=== PATIENT | female | born 1980 | race Caucasian/White ===

== ENCOUNTER 2016-11-30 18:53 | Emergency (ER) | payer MEDICAID ==
[~2016-11-30] VITALS: Ht 175.3 cm; Wt 72.0 kg
[~2016-11-30 18:53] MED LIST: PERC5TAB12 PO; ZOLO50TA PO
[2016-11-30 19:30] VITALS: BP 115/80; PULSE 81; RESP 20; TEMP 98.8; O2SAT 98
== END 2016-11-30 20:00 | disposition left against medical advice (07) ==
LOC: PHED 18:53
DX: R68.89 Other general symptoms and signs (principal)
CPT/HCPCS: 99281

== ENCOUNTER 2017-01-10 17:35 | Emergency (ER) | payer MEDICAID ==
[~2017-01-10] VITALS: Ht 175.3 cm; Wt 70.5 kg
[2017-01-10 17:37] VITALS: BP 126/68; PULSE 90; RESP 17; TEMP 97.7; O2SAT 96
[2017-01-10 18:18] LABS: BACTERIA, URINE RARE /hpf; BLOOD, URINE NEG (NEG); COMMENT (UR) CULT NOT INDICATED; CULTURE IF INDICATED CULT NOT INDICATED; GLUCOSE,URINE NEG (NEG); KETONE, URINE NEG (NEG); NITRITE,URINE NEG (NEG); SQUAMOUS EPITHELIAL CELL URINE 2 /hpf (0-5); URINE COLOR YELLOW (YELLW/STRAW)
[2017-01-10] MEDS ORDERED: LORA-392 PO (18:43)
[2017-01-10] MEDS ORDERED: SODIUM CHLOR 0.9% 1000 ML INJ 1,000 ML IV SCH (18:54)
--- NOTE | 2017-01-10 18:59 | PD ---
HPI Chief Complaint: Flank/Kidney Pain Time Seen by Provider: 18:50 Travel History International Travel<30 days: No Contact w/Intl Traveler<30days: No Traveled to known affect area: No History of Present Illness HPI This patient was examined in the presence of a female nurse. This is a 36-year- old female who presents for evaluation of right-sided abdominal pain. Symptoms started yesterday. She describes it as a sharp pain in the right lower and upper quadrants of her abdomen which is constant no obvious relieving factors. The lower abdominal pain seems to be worse than the upper abdominal pain. Denies any flank pain, nausea or vomiting, fevers or chills, vaginal bleeding or discharge, hematuria, dysuria. She has had kidney stones the past but this feels different. Denies any history of abdominal surgery. She has no other complaints. PFSH Past Medical History Hx Anticoagulant Therapy: No Anemia: Yes Anxiety: Yes Depression: Yes Cancer: No Cardiovascular Problems: No Chemotherapy: No Chest Pain: Yes Cerebrovascular Accident: No Cystic Fibrosis: No Diabetes: No Diminished Hearing: No Endocrine: Yes (gestational diabities) Gastrointestinal Disorders: Yes Genitourinary: Yes (polynephrocalcinosu, UTI, MEDULARY SPONGE, DISTAL RENAL TUBULAR ACIDOSIS) Headaches: Yes Hepatitis: No Hiatal Hernia: No Hypertension: No Immune Disorder: No Implanted Vascular Access Dvce: No Kidney Stones: Yes Musculoskeletal: No Neurologic: No Psychiatric: No Reproductive: No Respiratory: No Immunizations Current: Yes Migraines: Yes Renal Failure: Yes Shingles: Yes Thyroid Disease: No ?: Not LMP: 28th, but spotting : 6 Para: 4 Miscarriage: 2 : 0 Dilation and Curettage (D&C): Yes (X 1) Past Surgical History Abdominal Surgery: No AICD: No Body Medical Devices: NONE Cardiac Surgery: No Ear Surgery: No Eye Surgery: No Genitourinary Surgery: Yes (CYSTO-STENTS, LITHOTRIPSY, CYSTOSCOPY) Gynecologic Surgery: No Hysterectomy: No Joint Replacement: No Oral Surgery: No Pacemaker: No Thoracic Surgery: No Other Surgery: Yes (RENAL STENTS (HAVE BEEN REMOVED)) Social History Alcohol Use: No Tobacco Use: No Substance Use: No Allergies-Medications (Allergen,Severity, Reaction): Coded Allergies: Vancomycin (Verified Allergy, Severe, RASH, 01/10/17) Nonsteroidal Anti-Inflammatory Agts (Verified Adverse Reaction, Severe, RENAL PRECAUTIONS, 01/10/17) Reported Meds & Prescriptions Reported Meds & Active Scripts Active Acetaminophen Extra Strength (Acetaminophen) 500 Mg Tab 500 Mg PO Q6H PRN Reported Ativan (Lorazepam) 0.5 Mg Tab 0.5 Mg PO HS PRN Zoloft (Sertraline HCl) 50 Mg Tab 50 Mg PO HS Review of Systems Except as stated in HPI: all other systems reviewed are Neg Physical Exam Narrative GENERAL: Well-developed well-nourished female who appears uncomfortable on initial examination SKIN: Warm and dry. HEAD: Atraumatic. Normocephalic. EYES: Pupils equal and round. No scleral icterus. No injection or drainage. ENT: No nasal bleeding or discharge. Mucous membranes pink and moist. NECK: Trachea midline. No JVD. CARDIOVASCULAR: Regular rate and rhythm. No murmur appreciated. RESPIRATORY: No accessory muscle use. Clear to auscultation. Breath sounds equal bilaterally. GASTROINTESTINAL: Abdomen soft, tender to palpation in the right upper and lower quadrants without guarding. No CVA tenderness. MUSCULOSKELETAL: No obvious deformities. No edema. NEUROLOGICAL: Awake and alert. No obvious cranial nerve deficits. Motor grossly within normal limits. Normal speech. PSYCHIATRIC: Appropriate mood and affect; insight and judgment normal. Data Data Last Documented VS Vital Signs Date Time Temp Pulse Resp B/P Pulse Ox O2 Delivery O2 Flow Rate FiO2 01/10/17 22:57 18 98 Room Air 01/10/17 17:37 97.7 90 126/68 Orders Urinalysis - C+S If Indicated (01/10/17 17:57) Ed Urine Pregnancytest Poc (01/10/17 17:57) Complete Blood Count With Diff (01/10/17 18:54) Comprehensive Metabolic Panel (01/10/17 18:54) Lipase (01/10/17 18:54) Ct Abd/Pel W Iv Contrast(Rout) (01/10/17 18:54) Iv Access Insert/Monitor (01/10/17 18:54) Ecg Monitoring (01/10/17 18:54) Oximetry (01/10/17 18:54) Morphine Inj (Morphine Inj) (01/10/17 19:00) Ondansetron Inj (Zofran Inj) (01/10/17 19:00) Sodium Chlor 0.9% 1000 Ml Inj (Ns 1000 M (01/10/17 18:54) Sodium Chloride 0.9% Flush (Ns Flush) (01/10/17 19:00) Iohexol 350 Inj (Omnipaque 350 Inj) (01/10/17 22:01) Morphine Inj (Morphine Inj) (01/10/17 22:15) Us Pelvis Comp W Dop Transvag (01/10/17 19:16) Labs Laboratory Tests Test 01/10/17 01/10/17 18:00 19:20 Urine Color YELLOW Urine Turbidity CLEAR Urine pH 6.0 Urine Specific [place] 1.014 Urine Protein NEG mg/dL Urine Glucose (UA) NEG mg/dL Urine Ketones NEG mg/dL Urine Occult Blood NEG Urine Nitrite NEG Urine Bilirubin NEG Urine Urobilinogen LESS THAN 2.0 MG/DL Urine Leukocyte Esterase TRACE Urine RBC LESS THAN 1 /hpf Urine WBC 4 /hpf Urine Squamous Epithelial 2 /hpf Cells Urine Bacteria RARE /hpf Microscopic Urinalysis Comment CULT NOT INDICATED White Blood Count 7.2 TH/MM3 Red Blood Count 4.90 MIL/MM3 Hemoglobin 14.3 GM/DL Hematocrit 40.5 % Mean Corpuscular Volume 82.7 FL Mean Corpuscular Hemoglobin 29.1 PG Mean Corpuscular Hemoglobin 35.2 % Concent Red Cell Distribution Width 12.8 % Platelet Count 233 TH/MM3 Mean Platelet Volume 8.2 FL Neutrophils (%) (Auto) 66.7 % Lymphocytes (%) (Auto) 23.0 % Monocytes (%) (Auto) 8.2 % Eosinophils (%) (Auto) 1.3 % Basophils (%) (Auto) 0.8 % Neutrophils # (Auto) 4.8 TH/MM3 Lymphocytes # (Auto) 1.7 TH/MM3 Monocytes # (Auto) 0.6 TH/MM3 Eosinophils # (Auto) 0.1 TH/MM3 Basophils # (Auto) 0.1 TH/MM3 CBC Comment DIFF FINAL Differential Comment Sodium Level 140 MEQ/L Potassium Level 3.7 MEQ/L Chloride Level 104 MEQ/L Carbon Dioxide Level 27.5 MEQ/L Anion Gap 9 MEQ/L Blood Urea Nitrogen 11 MG/DL Creatinine 0.66 MG/DL Estimat Glomerular Filtration 103 ML/MIN Rate Random Glucose 87 MG/DL Calcium Level 9.0 MG/DL Total Bilirubin 0.3 MG/DL Aspartate Amino Transf 14 U/L (AST/SGOT) Alanine Aminotransferase 15 U/L (ALT/SGPT) Alkaline Phosphatase 95 U/L Total Protein 8.0 GM/DL Albumin 3.8 GM/DL Lipase 162 U/L MDM Medical Decision Making Medical Screen Exam Complete: Yes Emergency Medical Condition: Yes Medical Record Reviewed: Yes Interpretation(s) Urinalysis trace leukocytes Urine negative Differential Diagnosis Appendicitis, biliary pathology, ovarian torsion, tubo-ovarian abscess, colitis , renal colic Narrative Course 36-year-old female presents for evaluation of right-sided abdominal pain since yesterday. Examination reveals pain in the right lower and upper quadrants of the abdomen, lower worse than upper, without guarding. Plan is for CT of the abdomen, labwork, urinalysis, as well as pelvic ultrasound to rule out torsion. The patient will be given IV fluids, morphine, Zofran. 2100: At the end of shift The patient was signed out to Dr. Eli pending imaging studies. Scripts Acetaminophen (Acetaminophen Extra Strength)500 Mg Uac382 Mg PO Q6H PRN (PAIN SCALE 1 TO 4) #20 TAB Ref 0 Prov:Shannan Eli DO 01/11/17 Yoni Agrawal Jan 10, 2017 18:59
[2017-01-10] MEDS ORDERED: MORPHINE SULFATE 4 MG/ML INJ IV PUSH ONE ×2 (19:00→22:15)
[2017-01-10] MEDS ORDERED: ONDANSETRON HCL 4 MG/2 ML VIAL IVP ONE (19:00)
[2017-01-10] MEDS: SODIUM CHLORIDE 0.9% FLUSH 10 ML FLUSH IV FLUSH PRN ×2 (19:50→22:16)
[2017-01-10 20:25] LABS: AUTOMATED NEUTROPHIL # 4.8 TH/MM3 (1.8-7.7); BASOPHIL # 0.1 TH/MM3 (0-0.2); BASOPHIL % 0.8 % (0.0-2.0); EOSINOPHIL # 0.1 TH/MM3 (0-0.4); EOSINOPHIL % 1.3 % (0.0-4.0); HEMATOCRIT 40.5 % (35.0-46.0); HEMO FLAGS DIFF FINAL; LYMPHOCYTE # 1.7 TH/MM3 (1.0-4.8); MEAN CELL VOLUME 82.7 FL (80.0-100.0); MEAN CORPUSCULAR HEMOGLOBIN 29.1 PG (27.0-34.0); MEAN CORPUSCULAR HGB CONC 35.2 % (32.0-36.0); MONO % 8.2 % (0.0-8.0); NEUT % 66.7 % (16.0-70.0); PLATELET COUNT 233 TH/MM3 (150-450); RED CELL DISTRIBUTION WIDTH 12.8 % (11.6-17.2); WHITE BLOOD COUNT 7.2 TH/MM3 (4.0-11.0)
[2017-01-10 20:49] LABS: ANION GAP 9 MEQ/L (5-15); AST (GOT) 14 U/L (15-37); BICARBONATE 27.5 MEQ/L (21.0-32.0); BLOOD UREA NITROGEN 11 MG/DL (7-18); CHLORIDE 104 MEQ/L (98-107); GLOMERULAR FILTRATION RATE 103 ML/MIN (>89); POTASSIUM 3.7 MEQ/L (3.5-5.1); SODIUM (NA) 140 MEQ/L (136-145)
[2017-01-10 20:52] LABS: ALKALINE PHOSPHATASE 95 U/L (45-117); ALT (GPT) 15 U/L (10-53); TOTAL BILIRUBIN ADULT 0.3 MG/DL (0.2-1.0)
--- NOTE | 2017-01-10 21:42 | PD ---
Physical Exam Narrative I, Dr. Eli, have reviewed the advance practice practitioner's documentation and am in agreement, met with the patient face to face, made the diagnosis, and the medical decision making was done by me. *My assessment and Findings: Appendicitis vs. cholecystitis vs. nephrolithiasis vs. colitis 36yo F with PMH of nephrolithiasis c/o right sided abdominal pain since yesterday. States it started in RUQ and radiates down to RLQ and now the entire right side hurts. Denies any fever, vaginal discharge. Labs reviewed, no leukocytosis. CMP unremarkable. Lipase normal. UA showed trace leukocyte. WBC is only 4. Culture not indicated. TVUS showed thickened endometrial stripe. Small amount of free fluid in cul de sac. Small bilateral follicular cysts. CT a/p showed extensive medullary nephrocalcinosis in both kidneys without evidence of obstructive uropathy. Pt reevaluated at bedside and abdominal pain has resolved after morphine. Pt tolerating PO after zofran and NS IVF. Return precautions given. Data Data Last Documented VS Vital Signs Date Time Temp Pulse Resp B/P Pulse Ox O2 Delivery O2 Flow Rate FiO2 01/10/17 22:57 18 98 Room Air 01/10/17 17:37 97.7 90 126/68 Orders Urinalysis - C+S If Indicated (01/10/17 17:57) Ed Urine Pregnancytest Poc (01/10/17 17:57) Complete Blood Count With Diff (01/10/17 18:54) Comprehensive Metabolic Panel (01/10/17 18:54) Lipase (01/10/17 18:54) Ct Abd/Pel W Iv Contrast(Rout) (01/10/17 18:54) Iv Access Insert/Monitor (01/10/17 18:54) Ecg Monitoring (01/10/17 18:54) Oximetry (01/10/17 18:54) Morphine Inj (Morphine Inj) (01/10/17 19:00) Ondansetron Inj (Zofran Inj) (01/10/17 19:00) Sodium Chlor 0.9% 1000 Ml Inj (Ns 1000 M (01/10/17 18:54) Sodium Chloride 0.9% Flush (Ns Flush) (01/10/17 19:00) Iohexol 350 Inj (Omnipaque 350 Inj) (01/10/17 22:01) Morphine Inj (Morphine Inj) (01/10/17 22:15) Us Pelvis Comp W Dop Transvag (01/10/17 19:16) Labs Laboratory Tests Test 01/10/17 01/10/17 18:00 19:20 Urine Color YELLOW Urine Turbidity CLEAR Urine pH 6.0 Urine Specific [place] 1.014 Urine Protein NEG mg/dL Urine Glucose (UA) NEG mg/dL Urine Ketones NEG mg/dL Urine Occult Blood NEG Urine Nitrite NEG Urine Bilirubin NEG Urine Urobilinogen LESS THAN 2.0 MG/DL Urine Leukocyte Esterase TRACE Urine RBC LESS THAN 1 /hpf Urine WBC 4 /hpf Urine Squamous Epithelial 2 /hpf Cells Urine Bacteria RARE /hpf Microscopic Urinalysis Comment CULT NOT INDICATED White Blood Count 7.2 TH/MM3 Red Blood Count 4.90 MIL/MM3 Hemoglobin 14.3 GM/DL Hematocrit 40.5 % Mean Corpuscular Volume 82.7 FL Mean Corpuscular Hemoglobin 29.1 PG Mean Corpuscular Hemoglobin 35.2 % Concent Red Cell Distribution Width 12.8 % Platelet Count 233 TH/MM3 Mean Platelet Volume 8.2 FL Neutrophils (%) (Auto) 66.7 % Lymphocytes (%) (Auto) 23.0 % Monocytes (%) (Auto) 8.2 % Eosinophils (%) (Auto) 1.3 % Basophils (%) (Auto) 0.8 % Neutrophils # (Auto) 4.8 TH/MM3 Lymphocytes # (Auto) 1.7 TH/MM3 Monocytes # (Auto) 0.6 TH/MM3 Eosinophils # (Auto) 0.1 TH/MM3 Basophils # (Auto) 0.1 TH/MM3 CBC Comment DIFF FINAL Differential Comment Sodium Level 140 MEQ/L Potassium Level 3.7 MEQ/L Chloride Level 104 MEQ/L Carbon Dioxide Level 27.5 MEQ/L Anion Gap 9 MEQ/L Blood Urea Nitrogen 11 MG/DL Creatinine 0.66 MG/DL Estimat Glomerular Filtration 103 ML/MIN Rate Random Glucose 87 MG/DL Calcium Level 9.0 MG/DL Total Bilirubin 0.3 MG/DL Aspartate Amino Transf 14 U/L (AST/SGOT) Alanine Aminotransferase 15 U/L (ALT/SGPT) Alkaline Phosphatase 95 U/L Total Protein 8.0 GM/DL Albumin 3.8 GM/DL Lipase 162 U/L [facility] Supervised Visit with KATHLEEN: Yes Interpretation(s) Laboratory Tests Test 01/10/17 01/10/17 18:00 19:20 Urine Color YELLOW (YELLW/STRAW) Urine Turbidity CLEAR (CLEAR) Urine pH 6.0 (5.0-8.5) Urine Specific [place] 1.014 (1.002-1.035) Urine Protein NEG mg/dL (NEG-TRACE) Urine Glucose (UA) NEG mg/dL (NEG) Urine Ketones NEG mg/dL (NEG) Urine Occult Blood NEG (NEG) Urine Nitrite NEG (NEG) Urine Bilirubin NEG (NEG) Urine Urobilinogen LESS THAN 2.0 MG/DL (LESS THAN 2.0) Urine Leukocyte Esterase TRACE (NEG) Urine RBC LESS THAN 1 /hpf (0-3) Urine WBC 4 /hpf (0-5) Urine Squamous Epithelial 2 /hpf (0-5) Cells Urine Bacteria RARE /hpf (NONE) Microscopic Urinalysis Comment CULT NOT INDICATED White Blood Count 7.2 TH/MM3 (4.0-11.0) Red Blood Count 4.90 MIL/MM3 (4.00-5.30) Hemoglobin 14.3 GM/DL (11.6-15.3) Hematocrit 40.5 % (35.0-46.0) Mean Corpuscular Volume 82.7 FL (80.0-100.0) Mean Corpuscular Hemoglobin 29.1 PG (27.0-34.0) Mean Corpuscular Hemoglobin 35.2 % Concent (32.0-36.0) Red Cell Distribution Width 12.8 % (11.6-17.2) Platelet Count 233 TH/MM3 (150-450) Mean Platelet Volume 8.2 FL (7.0-11.0) Neutrophils (%) (Auto) 66.7 % (16.0-70.0) Lymphocytes (%) (Auto) 23.0 % (9.0-44.0) Monocytes (%) (Auto) 8.2 % (0.0-8.0) Eosinophils (%) (Auto) 1.3 % (0.0-4.0) Basophils (%) (Auto) 0.8 % (0.0-2.0) Neutrophils # (Auto) 4.8 TH/MM3 (1.8-7.7) Lymphocytes # (Auto) 1.7 TH/MM3 (1.0-4.8) Monocytes # (Auto) 0.6 TH/MM3 (0-0.9) Eosinophils # (Auto) 0.1 TH/MM3 (0-0.4) Basophils # (Auto) 0.1 TH/MM3 (0-0.2) CBC Comment DIFF FINAL Differential Comment Sodium Level 140 MEQ/L (136-145) Potassium Level 3.7 MEQ/L (3.5-5.1) Chloride Level 104 MEQ/L (98-107) Carbon Dioxide Level 27.5 MEQ/L (21.0-32.0) Anion Gap 9 MEQ/L (5-15) Blood Urea Nitrogen 11 MG/DL (7-18) Creatinine 0.66 MG/DL (0.50-1.00) Estimat Glomerular Filtration 103 ML/MIN Rate (>89) Random Glucose 87 MG/DL (74-106) Calcium Level 9.0 MG/DL (8.5-10.1) Total Bilirubin 0.3 MG/DL (0.2-1.0) Aspartate Amino Transf 14 U/L (15-37) (AST/SGOT) Alanine Aminotransferase 15 U/L (10-53) (ALT/SGPT) Alkaline Phosphatase 95 U/L (45-117) Total Protein 8.0 GM/DL (6.4-8.2) Albumin 3.8 GM/DL (3.4-5.0) Lipase 162 U/L (73-393) Last Impressions Abdomen/Pelvis/Transvag US 01/10/17 1916 Signed Impressions: Service Date/Time: December 22:06 - CONCLUSION: 1. Thickened endometrial stripe. 2. Small amount of free fluid in the cul-de-sac. 3. Small bilateral follicular cysts. Mahendra Pratt Jr., MD Abdomen/Pelvis CT 01/10/17 2381 Signed Impressions: Service Date/Time: December 21:53 - CONCLUSION: 1. Extensive medullary nephrocalcinosis in both kidneys without evidence for obstructive uropathy. Mike Joe MD Diagnosis Primary Impression: Abdominal pain Qualified Code: R10.11 - Right upper quadrant abdominal pain Patient Instructions: General Instructions Departure Forms: Tests/Procedures Additional Instruction: Please follow up with your PMD in 3-7 days. Return to the ED if symptoms worsen. Med/Other Pt SpecificInfo: Prescription(s) given Scripts Acetaminophen (Acetaminophen Extra Strength)500 Mg Qlz500 Mg PO Q6H PRN (PAIN SCALE 1 TO 4) #20 TAB Ref 0 Prov:Shannan Eli DO 01/11/17 Disposition: 01 DISCHARGE HOME Condition: Stable Shannan Eli DO Jan 10, 2017 21:42
[2017-01-10] MEDS ORDERED: IOHEXOL 350 MG/ML 10 ML VIAL (for RAD DIAG) IV ONE (22:01)
--- NOTE | 2017-01-10 22:10 | RADRPT ---
EXAM DATE/TIME: 01/10/2017 21:53 [facility] COMPARISON: No previous studies available for comparison. INDICATIONS : Right flank abdomen pain along with fever for two days. IV CONTRAST: 92 cc Omnipaque 350 (iohexol) IV ORAL CONTRAST: No oral contrast ingested. RADIATION DOSE: 6.93 CTDIvol (mGy) MEDICAL HISTORY : Renal Disease SURGICAL HISTORY : Lithotropsy ENCOUNTER: Initial ACUITY: 2 days PAIN SCALE: 5/10 LOCATION: Right flank TECHNIQUE: Volumetric scanning of the abdomen and pelvis was performed. Using automated exposure control and ad justment of the mA and/or kV according to patient size, radiation dose was kept as low as reasonably achievable to obtain optimal diagnostic quality images. FINDINGS: There is linear scarring or atelectasis at the lung base. No significant abnormality in the liver, sp augustin, adrenals or pancreas. There is medullary nephrocalcinosis in both kidneys with tiny bilateral r enal cysts. No hydronephrosis. No calcified gallstones or biliary ductal dilatation. No bowel obstruction. No free air free fluid. No acute bony abnormalities. CONCLUSION: 1. Extensive medullary nephrocalcinosis in both kidneys without evidence for obstructive uropathy. Mike Joe MD on January 10, 2017 at 22:05 Board Certified Radiologist. This report was verified electronically.
[2017-01-10 22:57] VITALS: RESP 18; O2SAT 98
--- NOTE | 2017-01-10 23:18 | RADRPT ---
EXAM DATE/TIME: 01/10/2017 22:06 [facility] COMPARISON: No previous studies available for comparison. INDICATIONS : Pelvic pain. MEDICAL HISTORY : . Renal calculi. Renal failure. Migraines. Miscarriage x 2. Medulary sponge kidney. Depres armida. Anxiety. Gestational diabetes. Anemia. Shingles. SURGICAL HISTORY : Lithotripsy. Renal stent placement and removal. Dilation and curettage. ENCOUNTER: Initial ACUITY: 2 days PAIN SCORE: 5/10 LOCATION: Bilateral pelvis MEASUREMENTS: UTERUS: 9.6 x 6.5 x 5.6 cm ENDOMETRIAL STRIPE: 18 mm RIGHT OVARY: 2.8 x 2.3 x 1.8 cm LEFT OVARY: 2.5 x 1.8 x 1.3 cm FINDINGS: UTERUS: The myometrium is homogeneous without focal mass. The endometrium is thickened and somewhat heterogen eous with a small amount of fluid in the endocervical canal. Several tiny endometrial cysts are obser ashlyn. The largest measures 6 mm. RIGHT OVARY: Ovary contains no mass or significant cystic lesion. LEFT OVARY: Ovary contains no mass or significant cystic lesion. MISCELLANEOUS: A small amount of free fluid in the cul-de-sac. CONCLUSION: 1. Thickened endometrial stripe. 2. Small amount of free fluid in the cul-de-sac. 3. Small bilateral follicular cysts. Mahendra Pratt Jr., MD on January 10, 2017 at 23:11 Board Certified Radiologist. This report was verified electronically.
[2017-01-11] MEDS ORDERED: ACET500T36 PO (00:06)
== END 2017-01-11 00:35 | disposition home or self-care (01) ==
LOC: NEPB 17:35 → NEPA 01-11 00:35
DX: R10.11 Right upper quadrant pain (principal)
CPT/HCPCS: 74177; 76830; 76856; 80053; 81001; 83690; 84703; 85025; 93975; 96374; 96375; 96376; 99284; J2270; J2405; J7030; Q9967

== ENCOUNTER 2017-02-27 22:44 | Emergency (ER) | payer SELFPAY ==
[~2017-02-27 22:44] MED LIST changes: +ACET500T36 PO; +LORA-392 PO; -PERC5TAB12 PO
[2017-02-27 22:45] VITALS: BP 130/90; PULSE 75; RESP 18; TEMP 99; O2SAT 100
[2017-02-27] MEDS ORDERED: HYDR-3516 PO (23:10)
--- NOTE | 2017-02-27 23:18 | PD ---
HPI Chief Complaint: Flank/Kidney Pain Time Seen by Provider: 23:01 Travel History International Travel<30 days: No Contact w/Intl Traveler<30days: No Traveled to known affect area: No History of Present Illness HPI 36-year-old female complains of right flank pain, nausea vomiting, fever chills. Patient has history of chronic recurrent UTI and with dysuria for the past 4 years. Patient states the pain is sharp pain localized to right flank area. Patient denies any pain radiation. Patient has been to the emergency room multiple times in the past for the same problem. UA has been negative for growth or contamination. CT scan abdomen pelvis done recently shows calcinosis of the kidney. No obstructive uropathy. PFSH Past Medical History Hx Anticoagulant Therapy: No Anemia: Yes Anxiety: Yes Depression: Yes Cancer: No Cardiovascular Problems: No Chemotherapy: No Chest Pain: Yes Cerebrovascular Accident: No Cystic Fibrosis: No Diabetes: No Diminished Hearing: No Endocrine: Yes (gestational diabities) Gastrointestinal Disorders: Yes Genitourinary: Yes (polynephrocalcinosu, UTI, MEDULARY SPONGE, DISTAL RENAL TUBULAR ACIDOSIS) Headaches: Yes Hepatitis: No Hiatal Hernia: No Hypertension: No Immune Disorder: No Implanted Vascular Access Dvce: No Kidney Stones: Yes Musculoskeletal: No Neurologic: No Psychiatric: No Reproductive: No Respiratory: No Immunizations Current: Yes Migraines: Yes Renal Failure: Yes Shingles: Yes Thyroid Disease: No ?: Not : 6 Para: 4 Miscarriage: 2 : 0 Dilation and Curettage (D&C): Yes (X 1) Past Surgical History Abdominal Surgery: No AICD: No Body Medical Devices: NONE Cardiac Surgery: No Ear Surgery: No Eye Surgery: No Genitourinary Surgery: Yes (CYSTO-STENTS, LITHOTRIPSY, CYSTOSCOPY) Gynecologic Surgery: No Hysterectomy: No Joint Replacement: No Oral Surgery: No Pacemaker: No Thoracic Surgery: No Other Surgery: Yes (RENAL STENTS (HAVE BEEN REMOVED)) Social History Alcohol Use: No Tobacco Use: No Substance Use: No Allergies-Medications (Allergen,Severity, Reaction): Coded Allergies: Vancomycin (Verified Allergy, Severe, RASH, 02/27/17) Nonsteroidal Anti-Inflammatory Agts (Verified Adverse Reaction, Severe, RENAL PRECAUTIONS, 02/27/17) Reported Meds & Prescriptions Reported Meds & Active Scripts Active Reported Hydrocodone-Acetaminophen 5-325 mg Tab 1 Tab PO Q6H PRN Ativan (Lorazepam) 0.5 Mg Tab 0.5 Mg PO HS PRN Review of Systems General / Constitutional: No: Fever Eyes: No: Visual changes HENT: No: Headaches Cardiovascular: No: Chest Pain or Discomfort Respiratory: No: Shortness of Breath Gastrointestinal: No: Abdominal Pain Genitourinary: Positive: Dysuria Musculoskeletal: No: Pain Skin: No Rash Neurologic: No: Weakness Psychiatric: No: Depression Endocrine: No: Polydipsia Hematologic/Lymphatic: No: Easy Bruising Physical Exam Narrative GENERAL: Well-nourished, well-developed patient. SKIN: Focused skin assessment warm/dry. HEAD: Normocephalic. EYES: No scleral icterus. No injection or drainage. NECK: Supple, trachea midline. No JVD or lymphadenopathy. CARDIOVASCULAR: Regular rate and rhythm without murmurs, gallops, or rubs. RESPIRATORY: Breath sounds equal bilaterally. No accessory muscle use. GASTROINTESTINAL: Abdomen soft, non-tender, nondistended. MUSCULOSKELETAL: No cyanosis, or edema. BACK: Patient has mild tenderness on palpation right flank area, without obvious deformity. No CVA tenderness. Neurologic exam normal. Data Data Last Documented VS Vital Signs Date Time Temp Pulse Resp B/P Pulse Ox O2 Delivery O2 Flow Rate FiO2 02/27/17 22:45 99.0 75 18 130/90 100 Room Air Orders Complete Blood Count With Diff (02/27/17 23:12) Comprehensive Metabolic Panel (02/27/17 23:12) Urinalysis - C+S If Indicated (02/27/17 23:12) Iv Access Insert/Monitor (02/27/17 23:12) Ecg Monitoring (02/27/17 23:12) Oximetry (02/27/17 23:12) Labs Laboratory Tests Test 02/27/17 23:30 White Blood Count 5.1 TH/MM3 Red Blood Count 4.64 MIL/MM3 Hemoglobin 12.8 GM/DL Hematocrit 38.6 % Mean Corpuscular Volume 83.1 FL Mean Corpuscular Hemoglobin 27.7 PG Mean Corpuscular Hemoglobin 33.3 % Concent Red Cell Distribution Width 14.6 % Platelet Count 182 TH/MM3 Mean Platelet Volume 8.3 FL Neutrophils (%) (Auto) 48.2 % Lymphocytes (%) (Auto) 38.4 % Monocytes (%) (Auto) 9.7 % Eosinophils (%) (Auto) 2.3 % Basophils (%) (Auto) 1.4 % Neutrophils # (Auto) 2.5 TH/MM3 Lymphocytes # (Auto) 2.0 TH/MM3 Monocytes # (Auto) 0.5 TH/MM3 Eosinophils # (Auto) 0.1 TH/MM3 Basophils # (Auto) 0.1 TH/MM3 CBC Comment DIFF FINAL Differential Comment Urine Color YELLOW Urine Turbidity CLEAR Urine pH 6.0 Urine Specific [place] 1.014 Urine Protein NEG mg/dL Urine Glucose (UA) NEG mg/dL Urine Ketones NEG mg/dL Urine Occult Blood LARGE Urine Nitrite NEG Urine Bilirubin NEG Urine Urobilinogen LESS THAN 2.0 MG/DL Urine Leukocyte Esterase NEG Urine RBC /hpf Urine WBC 4 /hpf Urine Mucus FEW /lpf Microscopic Urinalysis Comment CULT NOT INDICATED Sodium Level 139 MEQ/L Potassium Level 3.6 MEQ/L Chloride Level 102 MEQ/L Carbon Dioxide Level 26.4 MEQ/L Anion Gap 11 MEQ/L Blood Urea Nitrogen 16 MG/DL Creatinine 0.85 MG/DL Estimat Glomerular Filtration 77 ML/MIN Rate Random Glucose 83 MG/DL Calcium Level 9.1 MG/DL Total Bilirubin 0.2 MG/DL Aspartate Amino Transf 18 U/L (AST/SGOT) Alanine Aminotransferase 17 U/L (ALT/SGPT) Alkaline Phosphatase 87 U/L Total Protein 7.8 GM/DL Albumin 3.9 GM/DL [facility] Medical Decision Making Medical Screen Exam Complete: Yes Emergency Medical Condition: Yes Interpretation(s) 23:51 PM. CBC within normal limits. UA positive for RBC, 4 WBC . Culture not indicated. CMP within normal limit. Differential Diagnosis Differential diagnosis including musculoskeletal, pyelonephritis, nephrolithiasis, UTI. Narrative Course 36-year-old female with recurrent dysuria and right flank pain. Diagnosis Primary Impression: Hematuria Additional Impression: Nephrolithiasis Patient Instructions: General Instructions Additional Instructions: Take medication as directed. Follow with personal physician and urologist. Med/Other Pt SpecificInfo: Prescription(s) given Scripts Cyclobenzaprine (Flexeril)10 Mg Tab10 Mg PO TID #60 TAB Ref 0 Prov:Yuriy Bui MD 02/28/17 Disposition: 01 DISCHARGE HOME Condition: Stable Yuriy Bui MD February 27, 2017 23:18
[2017-02-27 23:44] LABS: BLOOD, URINE LARGE (NEG); COMMENT (UR) CULT NOT INDICATED; CULTURE IF INDICATED CULT NOT INDICATED; GLUCOSE,URINE NEG (NEG); KETONE, URINE NEG (NEG); MUCUS URINE FEW /lpf (OCC); NITRITE,URINE NEG (NEG); URINE COLOR YELLOW (YELLW/STRAW)
[2017-02-27 23:50] LABS: AUTOMATED NEUTROPHIL # 2.5 TH/MM3 (1.8-7.7); BASOPHIL # 0.1 TH/MM3 (0-0.2); BASOPHIL % 1.4 % (0.0-2.0); EOSINOPHIL # 0.1 TH/MM3 (0-0.4); EOSINOPHIL % 2.3 % (0.0-4.0); HEMATOCRIT 38.6 % (35.0-46.0); HEMO FLAGS DIFF FINAL; LYMPH % 38.4 % (9.0-44.0); MEAN CELL VOLUME 83.1 FL (80.0-100.0); MEAN CORPUSCULAR HEMOGLOBIN 27.7 PG (27.0-34.0); MEAN CORPUSCULAR HGB CONC 33.3 % (32.0-36.0); MONO % 9.7 % (0.0-8.0); NEUT % 48.2 % (16.0-70.0); PLATELET COUNT 182 TH/MM3 (150-450); RED BLOOD COUNT 4.64 MIL/MM3 (4.00-5.30); RED CELL DISTRIBUTION WIDTH 14.6 % (11.6-17.2); WHITE BLOOD COUNT 5.1 TH/MM3 (4.0-11.0)
[2017-02-28] LABS: ANION GAP 11 MEQ/L (5-15); AST (GOT) 18 U/L (15-37); BICARBONATE 26.4 MEQ/L (21.0-32.0); BLOOD UREA NITROGEN 16 MG/DL (7-18); CHLORIDE 102 MEQ/L (98-107); GLOMERULAR FILTRATION RATE 77 ML/MIN (>89); POTASSIUM 3.6 MEQ/L (3.5-5.1); SODIUM (NA) 139 MEQ/L (136-145)
[2017-02-28 00:03] LABS: ALKALINE PHOSPHATASE 87 U/L (45-117); ALT (GPT) 17 U/L (10-53); TOTAL BILIRUBIN ADULT 0.2 MG/DL (0.2-1.0)
[2017-02-28] MEDS ORDERED: CYCL1TAB29 PO (00:56)
== END 2017-02-28 01:10 | disposition home or self-care (01) ==
LOC: NEPE 22:44
DX: R31.9 Hematuria, unspecified (principal); N20.0 Calculus of kidney; Z87.442 Personal history of urinary calculi
CPT/HCPCS: 80053; 81001; 85025; 99284

== ENCOUNTER 2017-04-07 19:06 | Emergency (ER) | payer MEDICAID ==
[~2017-04-07] VITALS: Ht 175.3 cm; Wt 72.0 kg
[~2017-04-07 19:06] MED LIST changes: -ACET500T36 PO; +CYCL1TAB29 PO; +HYDR-3516 PO; -ZOLO50TA PO
[2017-04-07 19:08] VITALS: BP 128/80; PULSE 83; RESP 20; TEMP 98.9; O2SAT 98
[2017-04-07] MEDS ORDERED: SODIUM CHLOR 0.9% 1000 ML INJ 1,000 ML IV ONE (19:29)
[2017-04-07] MEDS ORDERED: SODIUM CHLORIDE 0.9% FLUSH 10 ML FLUSH IVF PRN (19:30)
[2017-04-07] MEDS ORDERED: KETOROLAC TROMETHAMINE 30 MG/ML (IVP) VIAL IVP ONE (19:30)
--- NOTE | 2017-04-07 19:41 | PD ---
HPI Chief Complaint: Flank/Kidney Pain Time Seen by Provider: 19:25 Travel History International Travel<30 days: No Contact w/Intl Traveler<30days: No Traveled to known affect area: No History of Present Illness HPI 35-year-old female with history of chronic kidney disease presents to the emergency room for evaluation of left-sided flank pain for the past 3 days. Patient got a primary care physician 3 days ago but they could not get her in. She was trying to "pass the stones" on her own but the pain became unbearable. Pain is constant with intermittent spasming. Localized to left flank without radiation. Patient has been taking Tylenol without significant relief in symptoms. She has associated nausea, vomiting, dysuria, urgency, and frequency. Denies fever, chills. Patient states she has had chronic kidney for the past 4 years but they never show up on CT. 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 She sees a urologist in [place] and has an appointment with him 5 days. PFSH Past Medical History Hx Anticoagulant Therapy: No Anemia: Yes Anxiety: Yes Depression: Yes Cancer: No Cardiovascular Problems: No Chemotherapy: No Chest Pain: Yes Cerebrovascular Accident: No Cystic Fibrosis: No Diabetes: No Diminished Hearing: No Endocrine: Yes (gestational diabities) Gastrointestinal Disorders: Yes Genitourinary: Yes (polynephrocalcinosu, UTI, MEDULARY SPONGE, DISTAL RENAL TUBULAR ACIDOSIS) Headaches: Yes Hepatitis: No Hiatal Hernia: No Hypertension: No Immune Disorder: No Implanted Vascular Access Dvce: No Kidney Stones: Yes Musculoskeletal: No Neurologic: No Psychiatric: No Reproductive: No Respiratory: No Immunizations Current: Yes Migraines: Yes Renal Failure: Yes Shingles: Yes Thyroid Disease: No LMP: 03/30/17 : 6 Para: 4 Miscarriage: 2 : 0 Dilation and Curettage (D&C): Yes (X 1) Past Surgical History Abdominal Surgery: No AICD: No Body Medical Devices: NONE Cardiac Surgery: No Ear Surgery: No Eye Surgery: No Genitourinary Surgery: Yes (CYSTO-STENTS, LITHOTRIPSY, CYSTOSCOPY) Gynecologic Surgery: No Hysterectomy: No Joint Replacement: No Oral Surgery: No Pacemaker: No Thoracic Surgery: No Other Surgery: Yes (RENAL STENTS (HAVE BEEN REMOVED)) Social History Alcohol Use: No Tobacco Use: No Substance Use: No Allergies-Medications (Allergen,Severity, Reaction): Coded Allergies: Vancomycin (Verified Allergy, Severe, RASH, 04/07/17) Nonsteroidal Anti-Inflammatory Agts (Verified Adverse Reaction, Severe, RENAL PRECAUTIONS, 04/07/17) Reported Meds & Prescriptions Reported Meds & Active Scripts Active Lortab (Hydrocodone-Acetaminophen) 5-325 Mg Tab 1 Tab PO Q6H PRN Flexeril (Cyclobenzaprine HCl) 10 Mg Tab 10 Mg PO TID Reported Hydrocodone-Acetaminophen 5-325 mg Tab 1 Tab PO Q6H PRN Ativan (Lorazepam) 0.5 Mg Tab 0.5 Mg PO HS PRN Review of Systems Except as stated in HPI: all other systems reviewed are Neg Physical Exam Narrative GENERAL: Well-nourished, well-developed female in no acute distress. Afebrile. Ambulatory. Writhing in pain. SKIN: Focused skin assessment warm/dry. HEAD: Normocephalic. EYES: No scleral icterus. No injection or drainage. NECK: Supple, trachea midline. No JVD or lymphadenopathy. CARDIOVASCULAR: Regular rate and rhythm without murmurs, gallops, or rubs. RESPIRATORY: Breath sounds equal bilaterally. No accessory muscle use. BACK: Left-sided CVA tenderness. No rash. No point tenderness on palpation of the spine. Data Data Last Documented VS Vital Signs Date Time Temp Pulse Resp B/P Pulse Ox O2 Delivery O2 Flow Rate FiO2 04/07/17 21:03 75 18 121/74 98 Room Air 04/07/17 19:08 98.9 Orders Complete Blood Count With Diff (04/07/17 19:29) Basic Metabolic Panel (Bmp) (04/07/17 19:29) Urinalysis - C+S If Indicated (04/07/17 19:29) Iv Access Insert/Monitor (04/07/17 19:29) Ketorolac Inj (Toradol Inj) (04/07/17 19:30) Sodium Chloride 0.9% Flush (Ns Flush) (04/07/17 19:30) Sodium Chlor 0.9% 1000 Ml Inj (Ns 1000 M (04/07/17 19:29) Morphine Inj (Morphine Inj) (04/07/17 20:15) Us Kidney/Renal/Bladder (04/07/17 ) Labs Laboratory Tests Test 04/07/17 19:30 White Blood Count 6.6 TH/MM3 Red Blood Count 4.91 MIL/MM3 Hemoglobin 14.2 GM/DL Hematocrit 40.5 % Mean Corpuscular Volume 82.5 FL Mean Corpuscular Hemoglobin 29.0 PG Mean Corpuscular Hemoglobin 35.1 % Concent Red Cell Distribution Width 13.8 % Platelet Count 217 TH/MM3 Mean Platelet Volume 8.3 FL Neutrophils (%) (Auto) 62.2 % Lymphocytes (%) (Auto) 28.1 % Monocytes (%) (Auto) 8.1 % Eosinophils (%) (Auto) 0.8 % Basophils (%) (Auto) 0.8 % Neutrophils # (Auto) 4.1 TH/MM3 Lymphocytes # (Auto) 1.8 TH/MM3 Monocytes # (Auto) 0.5 TH/MM3 Eosinophils # (Auto) 0.1 TH/MM3 Basophils # (Auto) 0.1 TH/MM3 CBC Comment DIFF FINAL Differential Comment Urine Color YELLOW Urine Turbidity CLEAR Urine pH 6.5 Urine Specific [place] 1.016 Urine Protein NEG mg/dL Urine Glucose (UA) NEG mg/dL Urine Ketones NEG mg/dL Urine Occult Blood NEG Urine Nitrite NEG Urine Bilirubin NEG Urine Urobilinogen LESS THAN 2.0 MG/DL Urine Leukocyte Esterase NEG Urine RBC 1 /hpf Urine WBC 7 /hpf Urine Squamous Epithelial 1 /hpf Cells Urine Mucus FEW /lpf Microscopic Urinalysis Comment CULT NOT INDICATED Sodium Level 137 MEQ/L Potassium Level 3.6 MEQ/L Chloride Level 104 MEQ/L Carbon Dioxide Level 24.3 MEQ/L Anion Gap 9 MEQ/L Blood Urea Nitrogen 11 MG/DL Creatinine 0.67 MG/DL Estimat Glomerular Filtration 101 ML/MIN Rate Random Glucose 115 MG/DL Calcium Level 9.4 MG/DL [facility] Medical Decision Making Medical Screen Exam Complete: Yes Emergency Medical Condition: Yes Medical Record Reviewed: Yes Differential Diagnosis Medullary sponge kidney, flank pain, nephrolithiasis, nephrocalcinosis, pyelonephritis Narrative Course 36-year-old female with a history of medullary sponge kidney and nephrocalcinosis presents to the emergency room for evaluation of left flank pain for the past 3 days. Patient states she has chronic right flank pain but it is unusual for have left flank pain. She tried to do with the pain at home but it became unbearable. She has only taken Tylenol. Physical exam reveals mild tenderness to palpation of the left flank. Patient is writhing in pain and pacing the room. Vital signs stable. UA shows no evidence of stone or infection. CBC and BMP are unremarkable. Patient was given 30 mg IV Toradol and 4 mg IV morphine. Renal ultrasound shows mild left hydronephrosis and chronic bilateral medullary nephrocalcinosis. No evidence of infection or indication for admission this time. Patient will be discharged with prescription for Lortab and told to follow-up with her urologist. She has an appointment with him in 5 days. Told to return for worsening symptoms. She understands and agrees to plan. Diagnosis Primary Impression: Medullary sponge kidney Additional Impression: Hydronephrosis Qualified Code: N13.30 - Hydronephrosis, unspecified hydronephrosis type Referrals: Urologist Patient Instructions: General Instructions, Hydronephrosis (ED) Additional Instructions: Rest and drink plenty of fluids. Take Lortab as directed, as needed for pain. Do not drink alcohol or drive while taking this medication. Follow-up with your urologist as planned. Return to the emergency room for worsening symptoms. Med/Other Pt SpecificInfo: Prescription(s) given Scripts Hydrocodone-Acetaminophen (Lortab)5-325 Mg Tab1 Tab PO Q6H PRN (PAIN) #12 TAB Ref 0 Prov:Mohan Bailon MD 04/07/17 Disposition: 01 DISCHARGE HOME Condition: Stable Tahira García Apr 07, 2017 19:41
[2017-04-07 19:57] LABS: AUTOMATED NEUTROPHIL # 4.1 TH/MM3 (1.8-7.7); BASOPHIL # 0.1 TH/MM3 (0-0.2); BASOPHIL % 0.8 % (0.0-2.0); EOSINOPHIL # 0.1 TH/MM3 (0-0.4); EOSINOPHIL % 0.8 % (0.0-4.0); HEMATOCRIT 40.5 % (35.0-46.0); HEMO FLAGS DIFF FINAL; LYMPH % 28.1 % (9.0-44.0); LYMPHOCYTE # 1.8 TH/MM3 (1.0-4.8); MEAN CELL VOLUME 82.5 FL (80.0-100.0); MEAN CORPUSCULAR HGB CONC 35.1 % (32.0-36.0); MONO % 8.1 % (0.0-8.0); NEUT % 62.2 % (16.0-70.0); PLATELET COUNT 217 TH/MM3 (150-450); RED BLOOD COUNT 4.91 MIL/MM3 (4.00-5.30); RED CELL DISTRIBUTION WIDTH 13.8 % (11.6-17.2); WHITE BLOOD COUNT 6.6 TH/MM3 (4.0-11.0)
[2017-04-07 20:01] LABS: BLOOD, URINE NEG (NEG); COMMENT (UR) CULT NOT INDICATED; CULTURE IF INDICATED CULT NOT INDICATED; GLUCOSE,URINE NEG (NEG); KETONE, URINE NEG (NEG); MUCUS URINE FEW /lpf (OCC); NITRITE,URINE NEG (NEG); PH, URINE 6.5 (5.0-8.5); SQUAMOUS EPITHELIAL CELL URINE 1 /hpf (0-5); URINE COLOR YELLOW (YELLW/STRAW)
[2017-04-07 20:14] LABS: BICARBONATE 24.3 MEQ/L (21.0-32.0); POTASSIUM 3.6 MEQ/L (3.5-5.1)
[2017-04-07] MEDS ORDERED: MORPHINE SULFATE 4 MG/ML INJ IV PUSH ONE (20:15)
[2017-04-07 21:03] VITALS: BP 121/74; PULSE 75; RESP 18; O2SAT 98
--- NOTE | 2017-04-07 21:09 | RADRPT ---
EXAM DATE/TIME: 04/07/2017 20:19 [facility] COMPARISON: CT ABDOMEN & PELVIS W CONTRAST, January 10, 2017, 21:53. US KIDNEY/RENAL/BLADDER, July 05, 2015, 18:44. INDICATIONS : Flank pain. MEDICAL HISTORY : Renal calculi. Medullary sponge kidneys. Renal tubular acidosis. Shingles. SURGICAL HISTORY : D&C. Cystoscopy. Renal stents. ENCOUNTER: Initial ACUITY: 4-6 days PAIN SCORE: 10/10 LOCATION: Bilateral flank MEASUREMENTS: RIGHT KIDNEY: 12.1 x 4.0 x 5.4 cm LEFT KIDNEY: 13.3 x 5.1 x 5.4 cm FINDINGS: RIGHT KIDNEY: Renal cortex is normal in thickness and echotexture. No hydronephrosis or mass. There abnormal echo genic medullary pyramids. LEFT KIDNEY: Renal cortex is normal in thickness and echotexture. There abnormal echogenic medullary pyramids. T here is a mild distention of the left collecting system. BLADDER: Within normal limits given the degree of distension. CONCLUSION: 1. Mild left hydronephrosis. 2. Bilateral medullary nephrocalcinosis. Willard Dietrich MD on April 07, 2017 at 20:59 Board Certified Radiologist. This report was verified electronically.
[2017-04-07] MEDS ORDERED: HYDR-3533 PO (21:33)
[2017-04-07 21:50] VITALS: BP 128/78
[2017-04-08] MEDS ORDERED: ZOFR4TAB3 SL ×3 (16:27→17:53)
[2017-04-08] MEDS ORDERED: HYDR-3533 PO (17:37)
[2017-04-08] MEDS ORDERED: TAMS5CAP PO (17:53)
[2017-04-08] MEDS ORDERED: PERC5TAB12 PO (17:53)
[2017-04-08] MEDS ORDERED: OXYB5TAB10 PO (17:53)
== END 2017-04-07 21:51 | disposition home or self-care (01) ==
LOC: NEPC 19:06
DX: Q61.5 Medullary cystic kidney (principal); N13.30 Unspecified hydronephrosis; D64.9 Anemia, unspecified; F32.9 Major depressive disorder, single episode, unspecified; F41.9 Anxiety disorder, unspecified; Z79.899 Other long term (current) drug therapy
CPT/HCPCS: 76775; 80048; 81001; 85025; 96361; 96374; 96375; 99285; J1885; J2270; J7030

== ENCOUNTER 2017-04-08 15:56 | Emergency (ER) | payer MEDICAID ==
[~2017-04-08] VITALS: Ht 175.3 cm; Wt 72.0 kg
[~2017-04-08 15:56] MED LIST changes: +HYDR-3533 PO
[2017-04-08 15:58] VITALS: BP 145/78; PULSE 96; RESP 18; TEMP 98.4; O2SAT 98
[2017-04-08] MEDS ORDERED: ZOFR4TAB3 SL ×3 (16:27→17:53)
[2017-04-08] MEDS ORDERED: ONDANSETRON HCL 4 MG/2 ML VIAL IVP ONE (17:00)
[2017-04-08] MEDS ORDERED: SODIUM CHLORIDE 0.9% FLUSH 10 ML FLUSH IV FLUSH PRN (17:00)
[2017-04-08] MEDS ORDERED: HYDROmorphone HCL PF 1 MG/ML VIAL IVS ONE (17:00)
[2017-04-08] MEDS ORDERED: HYDR-3533 PO (17:37)
--- NOTE | 2017-04-08 17:38 | PD ---
HPI Chief Complaint: Complaint Time Seen by Provider: 16:38 Travel History International Travel<30 days: No Contact w/Intl Traveler<30days: No Traveled to known affect area: No History of Present Illness HPI 36-year-old female complains of left flank pain and right flank pain with hematuria and the passage of stones. She has a history of kidney stones. She reports decreased appetite. She reports vomiting. She's had no fever. She has a history of medullary sponge kidney with nephrocalcinosis. She also has a history of distal tibial acidosis. Pain has been more or less constant. She was seen and diagnosed here with left hydroureteronephrosis just yesterday. PFSH Past Medical History Hx Anticoagulant Therapy: No Anemia: Yes Anxiety: Yes Depression: Yes Cancer: No Cardiovascular Problems: No Chemotherapy: No Chest Pain: Yes Cerebrovascular Accident: No Cystic Fibrosis: No Diabetes: No Diminished Hearing: No Endocrine: Yes (gestational diabities) Gastrointestinal Disorders: Yes Genitourinary: Yes (polynephrocalcinosu, UTI, MEDULARY SPONGE, DISTAL RENAL TUBULAR ACIDOSIS) Headaches: Yes Hepatitis: No Hiatal Hernia: No Hypertension: No Immune Disorder: No Implanted Vascular Access Dvce: No Kidney Stones: Yes Musculoskeletal: No Neurologic: No Psychiatric: No Reproductive: No Respiratory: No Immunizations Current: Yes Migraines: Yes Renal Failure: Yes Shingles: Yes Thyroid Disease: No ?: Not : 6 Para: 4 Miscarriage: 2 : 0 Dilation and Curettage (D&C): Yes (X 1) Past Surgical History Abdominal Surgery: No AICD: No Body Medical Devices: NONE Cardiac Surgery: No Ear Surgery: No Eye Surgery: No Genitourinary Surgery: Yes (CYSTO-STENTS, LITHOTRIPSY, CYSTOSCOPY) Gynecologic Surgery: No Hysterectomy: No Joint Replacement: No Oral Surgery: No Pacemaker: No Thoracic Surgery: No Other Surgery: Yes (RENAL STENTS (HAVE BEEN REMOVED)) Social History Alcohol Use: No Tobacco Use: No Substance Use: No Allergies-Medications (Allergen,Severity, Reaction): Coded Allergies: Vancomycin (Verified Allergy, Severe, RASH, 04/08/17) Nonsteroidal Anti-Inflammatory Agts (Verified Adverse Reaction, Severe, RENAL PRECAUTIONS, 04/08/17) Reported Meds & Prescriptions Reported Meds & Active Scripts Active Zofran Odt (Ondansetron Odt) 4 Mg Tab 4 Mg SL Q6HR PRN Lortab (Hydrocodone-Acetaminophen) 5-325 Mg Tab 1 Tab PO Q6H PRN Flexeril (Cyclobenzaprine HCl) 10 Mg Tab 10 Mg PO TID Reported Hydrocodone-Acetaminophen 5-325 mg Tab 1 Tab PO Q6H PRN Ativan (Lorazepam) 0.5 Mg Tab 0.5 Mg PO HS PRN Review of Systems Except as stated in HPI: all other systems reviewed are Neg Physical Exam Narrative GENERAL: 36-year-old female pleasant well-nourished well-developed moderate distress SKIN: Focused skin assessment warm/dry. HEAD: Atraumatic. Normocephalic. EYES: Pupils equal and round. No scleral icterus. No injection or drainage. ENT: No nasal bleeding or discharge. Mucous membranes pink and moist. NECK: Trachea midline. No JVD. CARDIOVASCULAR: Regular rate and rhythm. No murmur appreciated. RESPIRATORY: No accessory muscle use. Clear to auscultation. Breath sounds equal bilaterally. GASTROINTESTINAL: Abdomen soft, non-tender, nondistended. Hepatic and splenic margins not palpable. MUSCULOSKELETAL: No obvious deformities. No clubbing. No cyanosis. Tenderness to percussion in the flanks bilaterally. NEUROLOGICAL: Awake and alert. No obvious cranial nerve deficits. Motor grossly within normal limits. Normal speech. PSYCHIATRIC: Appropriate mood and affect; insight and judgment normal. Data Data Last Documented VS Vital Signs Date Time Temp Pulse Resp B/P Pulse Ox O2 Delivery O2 Flow Rate FiO2 04/08/17 15:58 98.4 96 18 145/78 98 Vital signs reviewed Orders Basic Metabolic Panel (Bmp) (04/08/17 16:46) Complete Blood Count With Diff (04/08/17 16:46) Urinalysis - C+S If Indicated (04/08/17 16:46) Iv Access Insert/Monitor (04/08/17 16:46) Ecg Monitoring (04/08/17 16:46) Oximetry (04/08/17 16:46) Ondansetron Inj (Zofran Inj) (04/08/17 17:00) Sodium Chloride 0.9% Flush (Ns Flush) (04/08/17 17:00) Hydromorphone Pf Inj (Dilaudid Pf Inj) (04/08/17 17:00) Ed Urine Pregnancytest Poc (04/08/17 16:46) [facility] Medical Decision Making Medical Screen Exam Complete: Yes Emergency Medical Condition: Yes Medical Record Reviewed: Yes Differential Diagnosis Constipation, Gastritis, Acute Cholecystitis, Biliary Colic, Pancreatitis, CUMMINGS , Hepatitis, Bowel Obstruction, Cystitis, Mesenteric Ischemia, AAA, Appendicitis , Renal Stone/Hydronephrosis, GERD, perforated viscous Narrative Course Pain has been controlled. Patient received a liter of fluids. We'll send home with antiemetics and pain control. Of note the patient has had her blood drawn 7 times in the last 10 months and has had a normal white count every time as well as normal renal indices. She has never had a urinary tract infection either. In this scenario we can reasonably safely defer repeat blood work. Diagnosis Primary Impression: Flank pain Referrals: Urologist 2 days Additional Instructions: You have a choice when it comes to health care, and we are glad that you chose [facility]. Hopefully, we have met your expectations on today's visit. You are welcome to return to [facility] at any time, as we are committed to meeting the health care needs of our community. Med/Other Pt SpecificInfo: Prescription(s) given Scripts Ondansetron Odt (Zofran Odt)4 Mg Tab4 Mg SL Q8HR PRN (Nausea/Vomiting) #10 TAB Ref 0 Prov:Nathaniel Beltran MD 04/08/17 Tamsulosin (Flomax)0.4 Mg Cap0.4 Mg PO HS #10 CAP Ref 0 Prov:Nathaniel Beltran MD 04/08/17 Oxycodone-Acetaminophen (Percocet)5-325 mg Tab2 Tab PO Q6H PRN (PAIN SCALE 6 TO 10) #20 TAB Ref 0 Prov:Nathaniel Beltran MD 04/08/17 Oxybutynin (Ditropan)5 Mg Tab5 Mg PO Q8HR #30 TAB Ref 0 Prov:Nathaniel Beltran MD 04/08/17 Ondansetron Odt (Zofran Odt)4 Mg Tab4 Mg SL Q6HR PRN (Nausea/Vomiting) #10 TAB Ref 0 Prov:Nathaniel Beltran MD 04/08/17 Hydrocodone-Acetaminophen (Lortab)5-325 Mg Tab1 Tab PO Q6H PRN (PAIN) #15 TAB Ref 0 Prov:Nathaniel Beltran MD 04/08/17 Disposition: 01 DISCHARGE HOME Condition: Stable Nathaniel Beltran MD Apr 08, 2017 17:37
[2017-04-08] MEDS ORDERED: PERC5TAB12 PO (17:53)
[2017-04-08] MEDS ORDERED: OXYB5TAB10 PO (17:53)
[2017-04-08] MEDS ORDERED: TAMS5CAP PO (17:53)
[2017-04-08] MEDS ORDERED: SODIUM CHLOR 0.9% 1000 ML INJ 1,000 ML IV ONE (18:00)
== END 2017-04-08 18:27 | disposition home or self-care (01) ==
LOC: NEPE 15:56
DX: R10.32 Left lower quadrant pain (principal); R10.31 Right lower quadrant pain; Z87.442 Personal history of urinary calculi
CPT/HCPCS: 96374; 96375; 99284; J1170; J2405; J7030

== ENCOUNTER 2017-06-07 23:56 | Emergency (ER) | payer MEDICAID ==
[~2017-06-07] VITALS: Ht 175.3 cm; Wt 75.0 kg
[~2017-06-07 23:56] MED LIST changes: +OXYB5TAB10 PO; +PERC5TAB12 PO; +TAMS5CAP PO; +ZOFR4TAB3 SL
[2017-06-07 23:59] VITALS: BP 132/85; PULSE 82; RESP 16; TEMP 99.5; O2SAT 98
[2017-06-08] MEDS ORDERED: ZOLO50TA PO (00:19)
[2017-06-08] MEDS ORDERED: SODIUM CHLOR 0.9% 1000 ML INJ 1,000 ML IV ONE ×2 (00:37→01:30)
[2017-06-08] MEDS ORDERED: SODIUM CHLORIDE 0.9% FLUSH 10 ML FLUSH IVF PRN (00:45)
[2017-06-08] MEDS ORDERED: ONDANSETRON HCL 4 MG/2 ML VIAL IVP ONE (00:45)
[2017-06-08] MEDS ORDERED: HYDROmorphone HCL PF 1 MG/ML VIAL IVS ONE (00:45)
--- NOTE | 2017-06-08 00:53 | PD ---
HPI . "I'm peeing gravel" Chief Complaint: Flank/Kidney Pain Time Seen by Provider: 00:37 Travel History International Travel<30 days: No Contact w/Intl Traveler<30days: No Traveled to known affect area: No History of Present Illness HPI This patient presents with the chief complaint of flank pain and urinating gravel. She has a history of medullary sponge kidney associated with nephrolithiasis. She states that her current episode started about 24 hours ago. She is having in both flanks, left worse than right. She denies fever. No exacerbating or relieving factors. Current pain level 10/10. PFSH Past Medical History Hx Anticoagulant Therapy: No Anemia: Yes Anxiety: Yes Depression: Yes Cancer: No Cardiovascular Problems: No Chemotherapy: No Chest Pain: Yes Cerebrovascular Accident: No Cystic Fibrosis: No Diabetes: No Diminished Hearing: No Endocrine: Yes (gestational diabities) Gastrointestinal Disorders: Yes Genitourinary: Yes (polynephrocalcinosu, UTI, MEDULARY SPONGE, DISTAL RENAL TUBULAR ACIDOSIS) Headaches: Yes Hepatitis: No Hiatal Hernia: No Hypertension: No Immune Disorder: No Implanted Vascular Access Dvce: No Kidney Stones: Yes Musculoskeletal: No Neurologic: No Psychiatric: No Reproductive: No Respiratory: No Immunizations Current: Yes Migraines: Yes Renal Failure: Yes Shingles: Yes Thyroid Disease: No Tetanus Vaccination: < 5 Years ?: Not LMP: 05/14/17 : 6 Para: 4 Miscarriage: 2 : 0 Dilation and Curettage (D&C): Yes (X 1) Past Surgical History Abdominal Surgery: No AICD: No Body Medical Devices: NONE Cardiac Surgery: No Ear Surgery: No Eye Surgery: No Genitourinary Surgery: Yes (CYSTO-STENTS, LITHOTRIPSY, CYSTOSCOPY) Gynecologic Surgery: No Hysterectomy: No Joint Replacement: No Oral Surgery: No Pacemaker: No Thoracic Surgery: No Other Surgery: Yes (RENAL STENTS (HAVE BEEN REMOVED)) Social History Alcohol Use: No Tobacco Use: No Substance Use: No Allergies-Medications (Allergen,Severity, Reaction): Coded Allergies: vancomycin (Verified Allergy, Severe, RASH, 06/08/17) diclofenac (Verified Adverse Reaction, Severe, RENAL PRECAUTIONS, 06/08/17) etodolac (Verified Adverse Reaction, Severe, RENAL PRECAUTIONS, 06/08/17) flurbiprofen (Verified Adverse Reaction, Severe, RENAL PRECAUTIONS, ) ibuprofen (Verified Adverse Reaction, Severe, RENAL PRECAUTIONS, 06/08/17) indomethacin (Verified Adverse Reaction, Severe, RENAL PRECAUTIONS, ) ketoprofen (Verified Adverse Reaction, Severe, RENAL PRECAUTIONS, 06/08/17) ketorolac (Verified Adverse Reaction, Severe, RENAL PRECAUTIONS, 06/08/17) naproxen (Verified Adverse Reaction, Severe, RENAL PRECAUTIONS, 06/08/17) oxaprozin (Verified Adverse Reaction, Severe, RENAL PRECAUTIONS, 06/08/17) Reported Meds & Prescriptions Reported Meds & Active Scripts Active Phenergan (Promethazine HCl) 25 Mg Tablet 25 Mg PO Q6H PRN Percocet (Oxycodone-Acetaminophen) 5-325 mg Tab 1 Tab PO Q4H PRN Flomax (Tamsulosin HCl) 0.4 Mg Cap 0.4 Mg PO HS Ditropan (Oxybutynin Chloride) 5 Mg Tab 5 Mg PO Q8HR Reported Zoloft (Sertraline HCl) 50 Mg Tab 50 Mg PO DAILY Ativan (Lorazepam) 0.5 Mg Tab 0.5 Mg PO HS PRN Review of Systems Except as stated in HPI: all other systems reviewed are Neg General / Constitutional: No: Fever, Chills Genitourinary: Positive: Flank Pain Physical Exam Narrative GENERAL: A found the patient up pacing in the room. SKIN: Warm and dry. HEAD: Atraumatic. Normocephalic. EYES: Pupils equal and round. ENT: No nasal bleeding or discharge. Mucous membranes pink and moist. NECK: Trachea midline. CARDIOVASCULAR: Regular rate and rhythm. RESPIRATORY: No accessory muscle use. GASTROINTESTINAL: Abdomen soft, non-tender, nondistended. Bilateral CVA tenderness. Left greater than right. MUSCULOSKELETAL: No obvious deformities. No edema. NEUROLOGICAL: Awake and alert. No obvious cranial nerve deficits. Motor grossly within normal limits. Normal speech. PSYCHIATRIC: Appropriate mood and affect; insight and judgment normal. Data Data Last Documented VS Vital Signs Date Time Temp Pulse Resp B/P Pulse Ox O2 Delivery O2 Flow Rate FiO2 06/08/17 01:15 16 06/07/17 23:59 99.5 82 132/85 98 Orders Urinalysis - C+S If Indicated (06/08/17 00:37) Iv Access Insert/Monitor (06/08/17 00:37) Sodium Chlor 0.9% 1000 Ml Inj (Ns 1000 M (06/08/17 00:37) Ondansetron Inj (Zofran Inj) (06/08/17 00:45) Hydromorphone Pf Inj (Dilaudid Pf Inj) (06/08/17 00:45) Ed Urine Pregnancytest Poc (06/08/17 00:37) Sodium Chloride 0.9% Flush (Ns Flush) (06/08/17 00:45) Sodium Chlor 0.9% 1000 Ml Inj (Ns 1000 M (06/08/17 01:30) Hydromorphone Pf Inj (Dilaudid Pf Inj) (06/08/17 01:30) Labs Laboratory Tests Test 06/08/17 00:50 Urine Color LIGHT-YELLOW Urine Turbidity CLEAR Urine pH 5.5 Urine Specific [place] 1.014 Urine Protein NEG mg/dL Urine Glucose (UA) NEG mg/dL Urine Ketones NEG mg/dL Urine Occult Blood NEG Urine Nitrite NEG Urine Bilirubin NEG Urine Urobilinogen LESS THAN 2.0 MG/DL Urine Leukocyte Esterase SMALL Urine RBC 1 /hpf Urine WBC 5 /hpf Urine Squamous Epithelial <1 /hpf Cells Urine Mucus FEW /lpf Microscopic Urinalysis Comment CULT NOT INDICATED MDM Medical Decision Making Medical Screen Exam Complete: Yes Emergency Medical Condition: Yes Medical Record Reviewed: Yes (this patient has had multiple previous CTs for kidney stone.) Differential Diagnosis Differential diagnosis of flank pain includes but is not limited to kidney stone , pyelonephritis, musculoskeletal pain, PE Narrative Course This patient presents with a history of medullary sponge kidney and nephrolithiasis. Her symptoms tonight are exactly the same as previous episodes. Therefore, radiographic evaluation will not be done tonight. She will be treated symptomatically with IV fluids and IV analgesics. Laboratory Tests Test 06/08/17 00:50 Urine Color LIGHT-YELLOW Urine Turbidity CLEAR Urine pH 5.5 Urine Specific [place] 1.014 Urine Protein NEG mg/dL Urine Glucose (UA) NEG mg/dL Urine Ketones NEG mg/dL Urine Occult Blood NEG Urine Nitrite NEG Urine Bilirubin NEG Urine Urobilinogen LESS THAN 2.0 MG/DL Urine Leukocyte Esterase SMALL Urine RBC 1 /hpf Urine WBC 5 /hpf Urine Squamous Epithelial <1 /hpf Cells Urine Mucus FEW /lpf Microscopic Urinalysis Comment CULT NOT INDICATED Her pain is improved but not yet completely gone. Diagnosis Primary Impression: Flank pain Additional Impression: Medullary sponge kidney Patient Instructions: Narcotic given in the ED Med/Other Pt SpecificInfo: Prescription(s) given Scripts Promethazine (Phenergan)25 Mg [id number] Mg PO Q6H PRN (NAUSEA OR VOMITING) #12 TAB Ref 0 Prov:Randee Ontiveros MD 06/08/17 Oxycodone-Acetaminophen (Percocet)5-325 mg Tab1 Tab PO Q4H PRN (PAIN) #12 TAB Ref 0 Prov:Randee Ontiveros MD 06/08/17 Tamsulosin (Flomax)0.4 Mg Cap0.4 Mg PO HS #10 CAP Ref 0 Prov:Randee Ontiveros MD 06/08/17 Disposition: 01 DISCHARGE HOME Condition: Stable Randee Ontiveros MD Jun 08, 2017 00:53
[2017-06-08 01:09] LABS: BLOOD, URINE NEG (NEG); COMMENT (UR) CULT NOT INDICATED; CULTURE IF INDICATED CULT NOT INDICATED; GLUCOSE,URINE NEG (NEG); KETONE, URINE NEG (NEG); MUCUS URINE FEW /lpf (OCC); NITRITE,URINE NEG (NEG); PH, URINE 5.5 (5.0-8.5); SQUAMOUS EPITHELIAL CELL URINE <1 /hpf (0-5); URINE COLOR LIGHT-YELLOW (YELLW/STRAW)
[2017-06-08] MEDS ORDERED: HYDROmorphone HCL PF 1 MG/ML VIAL IV PUSH ONE (01:30)
[2017-06-08] MEDS ORDERED: PERC5TAB12 PO (02:05)
[2017-06-08] MEDS ORDERED: PROM25TA10 PO (02:05)
[2017-06-08] MEDS ORDERED: TAMS5CAP PO (02:05)
[2017-06-08 02:47] VITALS: BP 114/63; PULSE 66; RESP 16; O2SAT 98
[2017-06-09] MEDS ORDERED: PERC5TAB12 PO (20:01)
== END 2017-06-08 03:04 | disposition home or self-care (01) ==
LOC: NEPC 23:56
DX: Q61.5 Medullary cystic kidney (principal); R10.32 Left lower quadrant pain; R10.31 Right lower quadrant pain; Z87.442 Personal history of urinary calculi
CPT/HCPCS: 81001; 84703; 96361; 96374; 96375; 99284; J1170; J2405; J7030

== ENCOUNTER 2017-06-09 15:44 | Emergency (ER) | payer MEDICAID ==
[~2017-06-09 15:44] MED LIST changes: -CYCL1TAB29 PO; -HYDR-3516 PO; -HYDR-3533 PO; +PROM25TA10 PO; -ZOFR4TAB3 SL; +ZOLO50TA PO
[2017-06-09 15:46] VITALS: BP 126/92; PULSE 104; RESP 20; TEMP 97.9; O2SAT 99
--- NOTE | 2017-06-09 16:21 | PD ---
HPI Chief Complaint: Complaint Time Seen by Provider: 16:18 Travel History International Travel<30 days: No Contact w/Intl Traveler<30days: No Traveled to known affect area: No History of Present Illness HPI 37 YO F presents to the ED for evaluation of 3 day history of right sided flank and abdominal pain. Patient has a history of medullary sponge kidney with chronic nephrocalcinosis. She states that she's been passing stones all weekend. She presents today due to worsening pain, nausea, hematuria. She denies fevers. She did call her travel professional who referred her to the emergency room. PFSH Past Medical History Hx Anticoagulant Therapy: No Anemia: Yes Anxiety: Yes Depression: Yes Cancer: No Cardiovascular Problems: No Chemotherapy: No Chest Pain: Yes Cerebrovascular Accident: No Cystic Fibrosis: No Diabetes: No Diminished Hearing: No Endocrine: Yes (gestational diabities) Gastrointestinal Disorders: Yes Genitourinary: Yes (polynephrocalcinosu, UTI, MEDULARY SPONGE, DISTAL RENAL TUBULAR ACIDOSIS) Headaches: Yes Hepatitis: No Hiatal Hernia: No Hypertension: No Immune Disorder: No Implanted Vascular Access Dvce: No Kidney Stones: Yes Musculoskeletal: No Neurologic: No Psychiatric: No Reproductive: No Respiratory: No Immunizations Current: Yes Migraines: Yes Renal Failure: Yes Shingles: Yes Thyroid Disease: No ?: Not : 6 Para: 4 Miscarriage: 2 : 0 Dilation and Curettage (D&C): Yes (X 1) Past Surgical History Abdominal Surgery: No AICD: No Body Medical Devices: NONE Cardiac Surgery: No Ear Surgery: No Eye Surgery: No Genitourinary Surgery: Yes (CYSTO-STENTS, LITHOTRIPSY, CYSTOSCOPY) Gynecologic Surgery: No Hysterectomy: No Joint Replacement: No Oral Surgery: No Pacemaker: No Thoracic Surgery: No Other Surgery: Yes (RENAL STENTS (HAVE BEEN REMOVED)) Social History Alcohol Use: No Tobacco Use: No Substance Use: No Allergies-Medications (Allergen,Severity, Reaction): Coded Allergies: vancomycin (Verified Allergy, Severe, RASH, 06/08/17) diclofenac (Verified Adverse Reaction, Severe, RENAL PRECAUTIONS, 06/08/17) etodolac (Verified Adverse Reaction, Severe, RENAL PRECAUTIONS, 06/08/17) flurbiprofen (Verified Adverse Reaction, Severe, RENAL PRECAUTIONS, ) ibuprofen (Verified Adverse Reaction, Severe, RENAL PRECAUTIONS, 06/08/17) indomethacin (Verified Adverse Reaction, Severe, RENAL PRECAUTIONS, ) ketoprofen (Verified Adverse Reaction, Severe, RENAL PRECAUTIONS, 06/08/17) ketorolac (Verified Adverse Reaction, Severe, RENAL PRECAUTIONS, 06/08/17) naproxen (Verified Adverse Reaction, Severe, RENAL PRECAUTIONS, 06/08/17) oxaprozin (Verified Adverse Reaction, Severe, RENAL PRECAUTIONS, 06/08/17) Reported Meds & Prescriptions Reported Meds & Active Scripts Active Percocet (Oxycodone-Acetaminophen) 5-325 mg Tab 1 Tab PO Q4H PRN Phenergan (Promethazine HCl) 25 Mg Tablet 25 Mg PO Q6H PRN Flomax (Tamsulosin HCl) 0.4 Mg Cap 0.4 Mg PO HS Ditropan (Oxybutynin Chloride) 5 Mg Tab 5 Mg PO Q8HR Reported Zoloft (Sertraline HCl) 50 Mg Tab 50 Mg PO DAILY Ativan (Lorazepam) 0.5 Mg Tab 0.5 Mg PO HS PRN Review of Systems Except as stated in HPI: all other systems reviewed are Neg Physical Exam Narrative GENERAL: Well-nourished, well-developed anxious white female, pacing the room. SKIN: Focused skin assessment warm/dry. HEAD: Normocephalic. EYES: No scleral icterus. No injection or drainage. NECK: Supple, trachea midline. No JVD or lymphadenopathy. CARDIOVASCULAR: Regular rate and rhythm without murmurs, gallops, or rubs. RESPIRATORY: Breath sounds clear and equal bilaterally. No accessory muscle use. GASTROINTESTINAL: Abdomen soft, non-tender, nondistended. ++ Right-sided flank pain MUSCULOSKELETAL: No cyanosis, or edema. BACK: Nontender without obvious deformity. ++ Right-sided CVA tenderness. Data Data Last Documented VS Vital Signs Date Time Temp Pulse Resp B/P (MAP) Pulse Ox O2 Delivery O2 Flow Rate FiO2 06/09/17 20:02 63 113/65 (81) 99 06/09/17 15:46 97.9 20 Orders Orders Complete Blood Count With Diff (06/09/17 16:19) Comprehensive Metabolic Panel (06/09/17 16:19) Urinalysis - C+S If Indicated (06/09/17 16:19) Ct Abd/Pel W/O Iv Contrast (06/09/17 16:19) Iv Access Insert/Monitor (06/09/17 16:19) Ondansetron Inj (Zofran Inj) (06/09/17 16:30) Sodium Chloride 0.9% Flush (Ns Flush) (06/09/17 16:30) Ed Urine Pregnancytest Poc (06/09/17 16:19) Sodium Chlor 0.9% 1000 Ml Inj (Ns 1000 M (06/09/17 17:00) Hydromorphone Pf Inj (Dilaudid Pf Inj) (06/09/17 17:45) Tamsulosin (Flomax) (06/09/17 18:00) Hydromorphone Pf Inj (Dilaudid Pf Inj) (06/09/17 19:45) Labs Laboratory Tests Test 06/09/17 16:30 06/09/17 16:40 Urine Color YELLOW Urine Turbidity CLEAR Urine pH 6.5 Urine Specific [place] 1.015 Urine Protein NEG mg/dL Urine Glucose (UA) NEG mg/dL Urine Ketones NEG mg/dL Urine Occult Blood MOD Urine Nitrite NEG Urine Bilirubin NEG Urine Urobilinogen LESS THAN 2.0 MG/DL Urine Leukocyte Esterase SMALL Urine RBC 174 /hpf Urine WBC 5 /hpf Urine Squamous Epithelial Cells 1 /hpf Urine Bacteria RARE /hpf Microscopic Urinalysis Comment CULT NOT INDICATED White Blood Count 7.8 TH/MM3 Red Blood Count 5.03 MIL/MM3 Hemoglobin 14.2 GM/DL Hematocrit 42.3 % Mean Corpuscular Volume 84.1 FL Mean Corpuscular Hemoglobin 28.2 PG Mean Corpuscular Hemoglobin Concent 33.6 % Red Cell Distribution Width 14.6 % Platelet Count 216 TH/MM3 Mean Platelet Volume 7.7 FL Neutrophils (%) (Auto) 67.8 % Lymphocytes (%) (Auto) 21.7 % Monocytes (%) (Auto) 8.6 % Eosinophils (%) (Auto) 1.2 % Basophils (%) (Auto) 0.7 % Neutrophils # (Auto) 5.3 TH/MM3 Lymphocytes # (Auto) 1.7 TH/MM3 Monocytes # (Auto) 0.7 TH/MM3 Eosinophils # (Auto) 0.1 TH/MM3 Basophils # (Auto) 0.1 TH/MM3 CBC Comment DIFF FINAL Differential Comment Blood Urea Nitrogen 8 MG/DL Creatinine 0.79 MG/DL Random Glucose 88 MG/DL Total Protein 7.9 GM/DL Albumin 3.9 GM/DL Calcium Level 8.5 MG/DL Alkaline Phosphatase 79 U/L Aspartate Amino Transf (AST/SGOT) 14 U/L Alanine Aminotransferase (ALT/SGPT) 16 U/L Total Bilirubin 0.2 MG/DL Sodium Level 140 MEQ/L Potassium Level 4.1 MEQ/L Chloride Level 109 MEQ/L Carbon Dioxide Level 24.2 MEQ/L Anion Gap 7 MEQ/L Estimat Glomerular Filtration Rate 83 ML/MIN [facility] Medical Decision Making Medical Screen Exam Complete: Yes Emergency Medical Condition: Yes Differential Diagnosis Medullary sponge kidney versus flank pain versus nephrolithiasis versus pyelonephritis versus hydronephrosis versus other Narrative Course 37 YO F presents to the ED for evaluation of 3 day history of right sided flank and abdominal pain. Patient has a history of medullary sponge kidney with chronic nephrocalcinosis. She states that she's been passing stones all weekend. She presents today due to worsening pain, nausea, hematuria. She denies fevers. She did call her travel professional who referred her to the emergency room. Patient is tachycardic and hypertensive on presentation. On physical exam she is moving about the room, pacing. There is tenderness in the right flank and right CVA tenderness with physical exam is otherwise unremarkable. IV was established. She is administered liter of fluids and 0.5 mg Dilaudid. CBC, CMP unremarkable. UA with red blood cells and occult blood. CT reveals no nephrolithiasis or hydronephrosis. Plan to discharge with a short course of pain medications. Given the late hour she was administered a another dose of 0.2 mg Dilaudid. She is instructed to take medications as prescribed, follow up with her travel professional. She indicated understanding of instructions and is agreeable to the care plan. She is stable and discharged home. Diagnosis Primary Impression: Medullary sponge kidney Additional Impressions: Flank pain Hematuria Qualified Codes: R31.9 - Hematuria, unspecified Referrals: [employer] Additional Instructions: Rest, hydrate. Return to normal, gentle activities as tolerated. Take pain medications as prescribed. Follow-up with your travel professional as discussed. Return to the ED for any urgent or emergent medical condition. Med/Other Pt SpecificInfo: Prescription(s) given Scripts Oxycodone-Acetaminophen (Percocet) 5-325 mg Tab 1 TAB PO Q4H Y for PAIN, #15 TAB 0 Refills Prov: Randee Ontiveros MD 06/09/17 Disposition: 01 DISCHARGE HOME Condition: Stable Amber Helm Jun 09, 2017 16:21
[2017-06-09] MEDS ORDERED: ONDANSETRON HCL 4 MG/2 ML VIAL IVP ONE (16:30)
[2017-06-09] MEDS ORDERED: SODIUM CHLORIDE 0.9% FLUSH 10 ML FLUSH IVF PRN (16:30)
[2017-06-09] MEDS ORDERED: SODIUM CHLOR 0.9% 1000 ML INJ 1,000 ML IV ONE (17:00)
[2017-06-09 17:15] LABS: AUTOMATED NEUTROPHIL # 5.3 TH/MM3 (1.8-7.7); BASOPHIL # 0.1 TH/MM3 (0-0.2); BASOPHIL % 0.7 % (0.0-2.0); EOSINOPHIL # 0.1 TH/MM3 (0-0.4); EOSINOPHIL % 1.2 % (0.0-4.0); HEMATOCRIT 42.3 % (35.0-46.0); HEMO FLAGS DIFF FINAL; LYMPH % 21.7 % (9.0-44.0); LYMPHOCYTE # 1.7 TH/MM3 (1.0-4.8); MEAN CELL VOLUME 84.1 FL (80.0-100.0); MEAN CORPUSCULAR HEMOGLOBIN 28.2 PG (27.0-34.0); MEAN CORPUSCULAR HGB CONC 33.6 % (32.0-36.0); MONO % 8.6 % (0.0-8.0); NEUT % 67.8 % (16.0-70.0); PLATELET COUNT 216 TH/MM3 (150-450); RED BLOOD COUNT 5.03 MIL/MM3 (4.00-5.30); RED CELL DISTRIBUTION WIDTH 14.6 % (11.6-17.2); WHITE BLOOD COUNT 7.8 TH/MM3 (4.0-11.0)
[2017-06-09 17:26] LABS: BACTERIA, URINE RARE /hpf; BLOOD, URINE MOD (NEG); COMMENT (UR) CULT NOT INDICATED; CULTURE IF INDICATED CULT NOT INDICATED; GLUCOSE,URINE NEG (NEG); KETONE, URINE NEG (NEG); NITRITE,URINE NEG (NEG); PH, URINE 6.5 (5.0-8.5); SQUAMOUS EPITHELIAL CELL URINE 1 /hpf (0-5); URINE COLOR YELLOW (YELLW/STRAW)
[2017-06-09 17:30] LABS: ALT (GPT) 16 U/L (10-53)
[2017-06-09 17:32] LABS: ALKALINE PHOSPHATASE 79 U/L (45-117); TOTAL BILIRUBIN ADULT 0.2 MG/DL (0.2-1.0)
[2017-06-09 17:42] LABS: ANION GAP 7 MEQ/L (5-15); AST (GOT) 14 U/L (15-37); BICARBONATE 24.2 MEQ/L (21.0-32.0); BLOOD UREA NITROGEN 8 MG/DL (7-18); CHLORIDE 109 MEQ/L (98-107); GLOMERULAR FILTRATION RATE 83 ML/MIN (>89); POTASSIUM 4.1 MEQ/L (3.5-5.1); SODIUM (NA) 140 MEQ/L (136-145)
[2017-06-09] MEDS ORDERED: HYDROmorphone HCL PF 1 MG/ML VIAL IV PUSH ONE ×2 (17:45→19:45)
[2017-06-09] MEDS ORDERED: TAMSULOSIN HCL 0.4 MG CAP PO ONE (18:00)
--- NOTE | 2017-06-09 19:41 | RADRPT ---
EXAM DATE/TIME: 06/09/2017 19:19 [facility] COMPARISON: CT ABDOMEN & PELVIS W CONTRAST, January 10, 2017, 21:53. INDICATIONS : Right flank pain; patient with known renal calculi; evaluate hydronephrosis. ORAL CONTRAST: No oral contrast ingested. RADIATION DOSE: 13.46 CTDIvol (mGy) MEDICAL HISTORY : Renal calculi. Renal failure, chronic. SURGICAL HISTORY : None. ENCOUNTER: Subsequent ACUITY: 3 days PAIN SCALE: 8/10 LOCATION: Right flank TECHNIQUE: Volumetric scanning of the abdomen and pelvis was performed. Using automated exposure control and adjustment of the mA and/or kV according to patient size, radiation dose was kept as low as reasonably achievable to obtain optimal diagnostic quality images. DICOM format image data is av ailable electronically for review and comparison. FINDINGS: CT Abdomen: The liver, spleen, pancreas, adrenals are unremarkable. Multiple calcifications and ston es are again present symmetrically bilaterally within the kidneys not significantly changed. There is no ureteral stone and there is no hydronephrosis on either side. There is no evidence for any apprec iable pathological adenopathy, free fluid, or bowel obstruction. CT pelvis: There is no evidence for mass, abscess formation, or any significant adenopathy within the pelvis. CONCLUSION: No change in the medullary nephrocalcinosis without hydronephrosis. Marjan Hood MD on June 09, 2017 at 19:37 Board Certified Radiologist. This report was verified electronically.
[2017-06-09] MEDS ORDERED: PERC5TAB12 PO (20:01)
[2017-06-09 20:02] VITALS: BP 113/65
== END 2017-06-09 20:08 | disposition home or self-care (01) ==
LOC: NEPC 15:44
DX: Q61.5 Medullary cystic kidney (principal); R31.9 Hematuria, unspecified; F41.9 Anxiety disorder, unspecified
CPT/HCPCS: 74176; 80053; 81001; 84703; 85025; 96361; 96374; 96375; 99285; J1170; J2405; J7030

== ENCOUNTER 2017-06-17 16:37 | Emergency (ER) | payer MEDICAID ==
[2017-06-17 16:38] VITALS: BP 129/90; PULSE 88; RESP 20; TEMP 98.4; O2SAT 98
--- NOTE | 2017-06-17 16:55 | PD ---
Physical Exam Date Seen by Provider: Jun 17, 2017 Time Seen by Provider: 16:53 Narrative Pt is a 37 year old female presenting to the ED for evaluation of flank pain x 1 week. Pt reports passing kidney stones frequently. Pt states her pain is an 8/ 10. Pt states she has been nauseated and vomited today. Pt states she took zofran which did not help. VSS, awaiting bed placement. Data Data Last Documented VS Vital Signs Date Time Temp Pulse Resp B/P (MAP) Pulse Ox O2 Delivery O2 Flow Rate FiO2 06/17/17 16:38 98.4 88 20 129/90 (103) 98 MDM Supervised Visit with KATHLEEN: Larisa Marte Jun 17, 2017 16:55
[2017-06-17 18:34] LABS: BACTERIA, URINE RARE /hpf; BLOOD, URINE MOD (NEG); COMMENT (UR) CULT NOT INDICATED; CULTURE IF INDICATED CULT NOT INDICATED; GLUCOSE,URINE NEG (NEG); KETONE, URINE NEG (NEG); NITRITE,URINE NEG (NEG); SQUAMOUS EPITHELIAL CELL URINE <1 /hpf (0-5); URINE COLOR YELLOW (YELLW/STRAW)
[2017-06-17] MEDS ORDERED: SODIUM CHLOR 0.9% 1000 ML INJ 1,000 ML IV ONE (18:45)
[2017-06-17] MEDS ORDERED: ONDANSETRON HCL 4 MG/2 ML VIAL IV PUSH ONE (18:45)
[2017-06-17] MEDS ORDERED: MORPHINE SULFATE 4 MG/ML INJ IV PUSH ONE (18:45)
[2017-06-17] MEDS ORDERED: LAMO25TA PO (18:46)
--- NOTE | 2017-06-17 19:06 | PD ---
HPI Chief Complaint: Flank/Kidney Pain Time Seen by Provider: 18:21 Travel History International Travel<30 days: No Contact w/Intl Traveler<30days: No Traveled to known affect area: No History of Present Illness HPI Patient is a 37 year old female who reports history of medullary sponge kidney and renal stones, who comes in complaining of left flank pain. She has been here multiple times with this complaint, and each CAT scan is never shown a kidney stone or any hydronephrosis. She says she follows with urology and pain management and has been taking hydrocodone for the pain. She says the pain got worse last night and her pain medicine is not helping. She says she was told by her pain management doctor to come in and make sure she did not have any hydronephrosis. She says she has chills, but no fever. She says that the pain makes her throw up. She denies any dysuria. PFSH Past Medical History Hx Anticoagulant Therapy: No Anemia: Yes Anxiety: Yes Depression: Yes Cancer: No Cardiovascular Problems: No Chemotherapy: No Chest Pain: Yes Cerebrovascular Accident: No Cystic Fibrosis: No Diabetes: No Diminished Hearing: No Endocrine: Yes (gestational diabities) Gastrointestinal Disorders: Yes Genitourinary: Yes (polynephrocalcinosu, UTI, MEDULARY SPONGE, DISTAL RENAL TUBULAR ACIDOSIS) Headaches: Yes Hepatitis: No Hiatal Hernia: No Hypertension: No Immune Disorder: No Implanted Vascular Access Dvce: No Kidney Stones: Yes Musculoskeletal: No Neurologic: No Psychiatric: No Reproductive: No Respiratory: No Immunizations Current: Yes Migraines: Yes Renal Failure: Yes Shingles: Yes Thyroid Disease: No ?: Not LMP: 06/16/17 : 6 Para: 4 Miscarriage: 2 : 0 Dilation and Curettage (D&C): Yes (X 1) Past Surgical History Abdominal Surgery: No AICD: No Body Medical Devices: NONE Cardiac Surgery: No Ear Surgery: No Eye Surgery: No Genitourinary Surgery: Yes (CYSTO-STENTS, LITHOTRIPSY, CYSTOSCOPY) Gynecologic Surgery: No Hysterectomy: No Joint Replacement: No Oral Surgery: No Pacemaker: No Thoracic Surgery: No Other Surgery: Yes (RENAL STENTS (HAVE BEEN REMOVED)) Social History Alcohol Use: No Tobacco Use: No (quit 2012) Substance Use: No Allergies-Medications (Allergen,Severity, Reaction): Coded Allergies: vancomycin (Verified Allergy, Severe, RASH, 06/17/17) diclofenac (Verified Adverse Reaction, Severe, RENAL PRECAUTIONS, 06/17/17) etodolac (Verified Adverse Reaction, Severe, RENAL PRECAUTIONS, 06/17/17) flurbiprofen (Verified Adverse Reaction, Severe, RENAL PRECAUTIONS, ) ibuprofen (Verified Adverse Reaction, Severe, RENAL PRECAUTIONS, 06/17/17) indomethacin (Verified Adverse Reaction, Severe, RENAL PRECAUTIONS, ) ketoprofen (Verified Adverse Reaction, Severe, RENAL PRECAUTIONS, 06/17/17) ketorolac (Verified Adverse Reaction, Severe, RENAL PRECAUTIONS, 06/17/17) naproxen (Verified Adverse Reaction, Severe, RENAL PRECAUTIONS, 06/17/17) oxaprozin (Verified Adverse Reaction, Severe, RENAL PRECAUTIONS, 06/17/17) Reported Meds & Prescriptions Reported Meds & Active Scripts Active Percocet (Oxycodone-Acetaminophen) 5-325 mg Tab 1 Tab PO Q4H PRN Reported Lamotrigine 25 Mg Tab Unknown Dose PO DAILY Zoloft (Sertraline HCl) 50 Mg Tab 50 Mg PO DAILY Ativan (Lorazepam) 0.5 Mg Tab 0.5 Mg PO HS PRN Review of Systems Except as stated in HPI: all other systems reviewed are Neg General / Constitutional: Positive: Chills, No: Fever HENT: No: Headaches, Lightheadedness Cardiovascular: No: Chest Pain or Discomfort, Palpitations Respiratory: No: Shortness of Breath Gastrointestinal: Positive: Nausea, Vomiting Genitourinary: Positive: Flank Pain, No: Urgency, Frequency, Dysuria Skin: No Rash, No Change in Pigmentation Neurologic: No: Weakness, Dizziness Physical Exam Narrative GENERAL: Awake and alert, in no acute distress. SKIN: Focused skin assessment warm/dry. HEAD: Atraumatic. Normocephalic. EYES: Pupils equal and round. No scleral icterus. ENT: Mucous membranes pink and moist. NECK: Trachea midline. No JVD. CARDIOVASCULAR: Regular rate and rhythm. No murmur appreciated. RESPIRATORY: No accessory muscle use. Clear to auscultation. Breath sounds equal bilaterally. GASTROINTESTINAL: Abdomen soft, non-tender, nondistended. Left CVA tenderness. MUSCULOSKELETAL: No obvious deformities. No clubbing. No cyanosis. No edema. NEUROLOGICAL: Awake and alert. No obvious cranial nerve deficits. Motor grossly within normal limits. Normal speech. PSYCHIATRIC: Appropriate mood and affect; insight and judgment normal. Data Data Last Documented VS Vital Signs Date Time Temp Pulse Resp B/P (MAP) Pulse Ox O2 Delivery O2 Flow Rate FiO2 06/17/17 20:31 99.1 68 18 116/66 (83) 100 Room Air Orders Orders Urinalysis - C+S If Indicated (06/17/17 16:56) Complete Blood Count With Diff (06/17/17 18:35) Basic Metabolic Panel (Bmp) (06/17/17 18:35) Us Kidney/Renal/Bladder (06/17/17 ) Sodium Chlor 0.9% 1000 Ml Inj (Ns 1000 M (06/17/17 18:45) Morphine Inj (Morphine Inj) (06/17/17 18:45) Ondansetron Inj (Zofran Inj) (06/17/17 18:45) Oxycodone-Acetamin 5-325 Mg (Percocet (06/17/17 21:00) Labs Laboratory Tests Test 06/17/17 17:30 06/17/17 18:20 06/17/17 18:50 Urine Color YELLOW Urine Turbidity CLEAR Urine pH 6.0 Urine Specific [place] 1.011 Urine Protein NEG mg/dL Urine Glucose (UA) NEG mg/dL Urine Ketones NEG mg/dL Urine Occult Blood MOD Urine Nitrite NEG Urine Bilirubin NEG Urine Urobilinogen LESS THAN 2.0 MG/DL Urine Leukocyte Esterase NEG Urine RBC /hpf Urine WBC 2 /hpf Urine Squamous Epithelial Cells <1 /hpf Urine Bacteria RARE /hpf Microscopic Urinalysis Comment CULT NOT INDICATED Blood Urea Nitrogen 8 MG/DL Creatinine 0.76 MG/DL Random Glucose 93 MG/DL Calcium Level 9.1 MG/DL Sodium Level 137 MEQ/L Potassium Level 3.8 MEQ/L Chloride Level 104 MEQ/L Carbon Dioxide Level 28.1 MEQ/L Anion Gap 5 MEQ/L Estimat Glomerular Filtration Rate 87 ML/MIN White Blood Count 5.6 TH/MM3 Red Blood Count 5.05 MIL/MM3 Hemoglobin 14.1 GM/DL Hematocrit 42.5 % Mean Corpuscular Volume 84.2 FL Mean Corpuscular Hemoglobin 28.0 PG Mean Corpuscular Hemoglobin Concent 33.3 % Red Cell Distribution Width 14.2 % Platelet Count 213 TH/MM3 Mean Platelet Volume 8.2 FL Neutrophils (%) (Auto) 69.4 % Lymphocytes (%) (Auto) 20.9 % Monocytes (%) (Auto) 7.7 % Eosinophils (%) (Auto) 1.1 % Basophils (%) (Auto) 0.9 % Neutrophils # (Auto) 3.9 TH/MM3 Lymphocytes # (Auto) 1.2 TH/MM3 Monocytes # (Auto) 0.4 TH/MM3 Eosinophils # (Auto) 0.1 TH/MM3 Basophils # (Auto) 0.0 TH/MM3 CBC Comment DIFF FINAL Differential Comment MDM Medical Decision Making Medical Screen Exam Complete: Yes Emergency Medical Condition: Yes Medical Record Reviewed: Yes Differential Diagnosis Renal stone versus renal obstruction versus UTI versus pyelonephritis Narrative Course Patient is a 37-year-old female comes in complaining of left flank pain. She has been here multiple times for this and there is any cause for it. Exam shows left CVA tenderness. Urine has some blood in it, no signs of infection. IV established, labs sent. Creatinine is within normal limits. Ultrasound of the kidney performed shows medullary sponge kidney, no evidence of hydronephrosis or stone. Patient was given pain medicine. She has prescriptions for pain medicine at home. She is advised to follow-up with her pain doctor. Advised to return to the ED as needed for any worsening symptoms. Diagnosis Primary Impression: Medullary sponge kidney Additional Impression: Chronic pain Qualified Codes: G89.29 - Other chronic pain Patient Instructions: Flank Pain (ED), General Instructions Additional Instructions: Follow-up a pain management doctor. Take the pain medicine you have at home. Return to the ED as needed for any worsening symptoms. Disposition: 01 DISCHARGE HOME Condition: Stable Nury Muller MD Jun 17, 2017 19:06
[2017-06-17 19:27] LABS: AUTOMATED NEUTROPHIL # 3.9 TH/MM3 (1.8-7.7); BASOPHIL % 0.9 % (0.0-2.0); EOSINOPHIL # 0.1 TH/MM3 (0-0.4); EOSINOPHIL % 1.1 % (0.0-4.0); HEMATOCRIT 42.5 % (35.0-46.0); HEMO FLAGS DIFF FINAL; LYMPH % 20.9 % (9.0-44.0); LYMPHOCYTE # 1.2 TH/MM3 (1.0-4.8); MEAN CELL VOLUME 84.2 FL (80.0-100.0); MEAN CORPUSCULAR HGB CONC 33.3 % (32.0-36.0); MONO % 7.7 % (0.0-8.0); NEUT % 69.4 % (16.0-70.0); PLATELET COUNT 213 TH/MM3 (150-450); RED BLOOD COUNT 5.05 MIL/MM3 (4.00-5.30); RED CELL DISTRIBUTION WIDTH 14.2 % (11.6-17.2); WHITE BLOOD COUNT 5.6 TH/MM3 (4.0-11.0)
--- NOTE | 2017-06-17 20:10 | RADRPT ---
EXAM DATE/TIME: 06/17/2017 18:39 [facility] COMPARISON: CT ABDOMEN & PELVIS W/O CONTRAST, June 09, 2017, 19:19. US KIDNEY/RENAL/BLADDER, April 07, 2017, 20 :19. INDICATIONS : Left flank pain. MEDICAL HISTORY : Renal calculi. Medullary sponge kidneys. Renal tubular acidosis. Shingles. SURGICAL HISTORY : D&C. Cystoscopy. Renal stents. ENCOUNTER: Subsequent ACUITY: 2 days PAIN SCORE: 6/10 LOCATION: Bilateral flank MEASUREMENTS: RIGHT KIDNEY: 11.6 x 5.4 x 4.1 cm LEFT KIDNEY: 11.5 x 6.1 x 5.6 cm FINDINGS: RIGHT KIDNEY: Renal cortex is normal in thickness and echotexture. There is increased echogenicity seen in the medu llary regions. No hydronephrosis, stone, or solid mass. There is a 0.6 cm cyst at the lower pole. LEFT KIDNEY: Renal cortex is normal in thickness and echotexture. There is increased echogenicity seen in the med ullary regions. No hydronephrosis, stone, or mass. BLADDER: Within normal limits given the degree of distension. CONCLUSION: Nephrocalcinosis/medullary sponge kidney. This appearance is unchanged. Willard Baxter MD on June 17, 2017 at 20:05 Board Certified Radiologist. This report was verified electronically.
[2017-06-17 20:11] LABS: BICARBONATE 28.1 MEQ/L (21.0-32.0); POTASSIUM 3.8 MEQ/L (3.5-5.1)
[2017-06-17 20:31] VITALS: BP 116/66; PULSE 68; RESP 18; TEMP 99.1; O2SAT 100
[2017-06-17] MEDS ORDERED: oxyCODONE/ACETAMINOPHEN 5 MG/325 MG TAB PO ONE (21:00)
== END 2017-06-17 21:26 | disposition home or self-care (01) ==
LOC: NEPD 16:37
DX: Q61.5 Medullary cystic kidney (principal); G89.29 Other chronic pain; R10.9 Unspecified abdominal pain; R68.83 Chills (without fever); R11.10 Vomiting, unspecified; N19 Unspecified kidney failure; Z86.2 Personal history of diseases of the blood and blood-forming organs and certain disorders involving the immune mechanism; Z86.59 Personal history of other mental and behavioral disorders; Z87.19 Personal history of other diseases of the digestive system; Z87.448 Personal history of other diseases of urinary system; Z86.69 Personal history of other diseases of the nervous system and sense organs
CPT/HCPCS: 76775; 80048; 81001; 85025; 96361; 96374; 96375; 99285; J2270; J2405; J7030

== ENCOUNTER 2017-09-11 07:53 | Emergency (ER) | payer MEDICAID ==
[~2017-09-11] VITALS: Ht 175.3 cm; Wt 70.0 kg
[2017-09-11 07:53] VITALS: BP 122/74; PULSE 94; RESP 18; TEMP 98.7; O2SAT 99
[~2017-09-11 07:53] MED LIST changes: +LAMO25TA PO; -OXYB5TAB10 PO; -PROM25TA10 PO; -TAMS5CAP PO
[2017-09-11] MEDS ORDERED: SODIUM CHLORIDE 0.9% FLUSH 10 ML FLUSH IV FLUSH PRN (08:45)
[2017-09-11] MEDS ORDERED: ONDANSETRON HCL 4 MG/2 ML VIAL IV PUSH ONE (08:45)
[2017-09-11] MEDS ORDERED: MORPHINE SULFATE 8 MG/ML INJ IV PUSH ONE (08:45)
--- NOTE | 2017-09-11 08:50 | PD ---
HPI Chief Complaint: Flank/Kidney Pain Time Seen by Provider: 08:37 Travel History International Travel<30 days: No Contact w/Intl Traveler<30days: No Traveled to known affect area: No History of Present Illness HPI 37 y/o female presents to the ED with a cc of R flank and groin pain that she believes is related to the development of a kidney stone. She states that on Saturday09/06/17 she felt like she has a UTI at which point she visited her pcp and was given Keflex. Later in the weekend/ early this week she noticed that she was having R sided pain that went from her groin up to her R CVA region. She has had pain like this before, and has had numerous kidney stones. 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 She has had N/V since the pain began. PFSH Past Medical History Hx Anticoagulant Therapy: No Anemia: Yes Anxiety: Yes Depression: Yes Cancer: No Cardiovascular Problems: No Chemotherapy: No Chest Pain: Yes Cerebrovascular Accident: No Cystic Fibrosis: No Diabetes: No Diminished Hearing: No Endocrine: Yes (gestational diabities) Gastrointestinal Disorders: Yes Genitourinary: Yes (polynephrocalcinosu, UTI, MEDULARY SPONGE, DISTAL RENAL TUBULAR ACIDOSIS) Headaches: Yes Hepatitis: No Hiatal Hernia: No Hypertension: No Immune Disorder: No Implanted Vascular Access Dvce: No Kidney Stones: Yes Musculoskeletal: No Neurologic: No Psychiatric: No Reproductive: No Respiratory: No Immunizations Current: Yes Migraines: Yes Renal Failure: Yes Shingles: Yes Thyroid Disease: No ?: Not LMP: 08/15/17 : 6 Para: 4 Miscarriage: 2 : 0 Dilation and Curettage (D&C): Yes (X 1) Past Surgical History Abdominal Surgery: No AICD: No Body Medical Devices: NONE Cardiac Surgery: No Ear Surgery: No Eye Surgery: No Genitourinary Surgery: Yes (CYSTO-STENTS, LITHOTRIPSY, CYSTOSCOPY) Gynecologic Surgery: No Hysterectomy: No Joint Replacement: No Oral Surgery: No Pacemaker: No Thoracic Surgery: No Other Surgery: Yes (RENAL STENTS (HAVE BEEN REMOVED)) Social History Alcohol Use: No Tobacco Use: No (quit 2012) Substance Use: No Allergies-Medications (Allergen,Severity, Reaction): Coded Allergies: vancomycin (Verified Allergy, Severe, RASH, 06/17/17) diclofenac (Verified Adverse Reaction, Severe, RENAL PRECAUTIONS, 06/17/17) etodolac (Verified Adverse Reaction, Severe, RENAL PRECAUTIONS, 06/17/17) flurbiprofen (Verified Adverse Reaction, Severe, RENAL PRECAUTIONS, ) ibuprofen (Verified Adverse Reaction, Severe, RENAL PRECAUTIONS, 06/17/17) indomethacin (Verified Adverse Reaction, Severe, RENAL PRECAUTIONS, ) ketoprofen (Verified Adverse Reaction, Severe, RENAL PRECAUTIONS, 06/17/17) ketorolac (Verified Adverse Reaction, Severe, RENAL PRECAUTIONS, 06/17/17) naproxen (Verified Adverse Reaction, Severe, RENAL PRECAUTIONS, 06/17/17) oxaprozin (Verified Adverse Reaction, Severe, RENAL PRECAUTIONS, 06/17/17) Reported Meds & Prescriptions Reported Meds & Active Scripts Active [place] (Hydrocodone-Acetaminophen) 5 Mg-325 Mg Tab 1 Tab PO Q6H PRN 10 Days Percocet (Oxycodone-Acetaminophen) 5-325 mg Tab 1 Tab PO Q4H PRN Reported Lamotrigine 25 Mg Tab Unknown Dose PO DAILY Zoloft (Sertraline HCl) 50 Mg Tab 50 Mg PO DAILY Ativan (Lorazepam) 0.5 Mg Tab 0.5 Mg PO HS PRN Review of Systems Except as stated in HPI: all other systems reviewed are Neg Physical Exam Narrative GENERAL: patient is agitated, pacing the room, in obvious discomfort SKIN: Warm and dry. HEAD: Atraumatic. Normocephalic. EYES: Pupils equal and round. No scleral icterus. No injection or drainage. ENT: No nasal bleeding or discharge. Mucous membranes pink and moist. NECK: Trachea midline. No JVD. CARDIOVASCULAR:Tachycardic with no murmurs or gallops. RESPIRATORY: No accessory muscle use. Clear to auscultation. Breath sounds equal bilaterally. GASTROINTESTINAL: Abdomen soft, tender to palpation in the R inguinal region, nondistended. Hepatic and splenic margins not palpable. GENITOURINARY: Tenderness to palpation in the R CVA region MUSCULOSKELETAL: Extremities without clubbing, cyanosis, or edema. No obvious deformities. NEUROLOGICAL: Awake and alert. No obvious cranial nerve deficits. Motor grossly within normal limits. Five out of 5 muscle strength in the arms and legs. Normal speech. PSYCHIATRIC: Appropriate mood and affect; insight and judgment normal. Data Data Last Documented VS Vital Signs Date Time Temp Pulse Resp B/P (MAP) Pulse Ox O2 Delivery O2 Flow Rate FiO2 09/11/17 12:49 74 15 110/59 (76) 98 09/11/17 07:53 98.7 Room Air Orders Orders Urinalysis - C+S If Indicated (09/11/17 08:02) Ed Urine Pregnancytest Poc (09/11/17 08:02) Complete Blood Count With Diff (09/11/17 08:37) Comprehensive Metabolic Panel (09/11/17 08:37) Iv Access Insert/Monitor (09/11/17 08:37) Ecg Monitoring (09/11/17 08:37) Oximetry (09/11/17 08:37) Sodium Chloride 0.9% Flush (Ns Flush) (09/11/17 08:45) Morphine Inj (Morphine Inj) (09/11/17 08:45) Ondansetron Inj (Zofran Inj) (09/11/17 08:45) Sodium Chlor 0.9% 1000 Ml Inj (Ns 1000 M (09/11/17 09:15) Acetamin-Hydrocod 325-5 Mg ([place] 5-325 (09/11/17 12:00) Ed Discharge Order (09/11/17 12:15) Labs Laboratory Tests Test 09/11/17 08:57 09/11/17 10:58 White Blood Count 4.6 TH/MM3 Red Blood Count 4.71 MIL/MM3 Hemoglobin 13.7 GM/DL Hematocrit 40.0 % Mean Corpuscular Volume 85.1 FL Mean Corpuscular Hemoglobin 29.0 PG Mean Corpuscular Hemoglobin Concent 34.1 % Red Cell Distribution Width 14.0 % Platelet Count 197 TH/MM3 Mean Platelet Volume 8.1 FL Neutrophils (%) (Auto) 79.2 % Lymphocytes (%) (Auto) 12.2 % Monocytes (%) (Auto) 7.8 % Eosinophils (%) (Auto) 0.3 % Basophils (%) (Auto) 0.5 % Neutrophils # (Auto) 3.6 TH/MM3 Lymphocytes # (Auto) 0.6 TH/MM3 Monocytes # (Auto) 0.4 TH/MM3 Eosinophils # (Auto) 0.0 TH/MM3 Basophils # (Auto) 0.0 TH/MM3 CBC Comment DIFF FINAL Differential Comment Blood Urea Nitrogen 5 MG/DL Creatinine 0.53 MG/DL Random Glucose 112 MG/DL Total Protein 8.0 GM/DL Albumin 3.5 GM/DL Calcium Level 8.9 MG/DL Alkaline Phosphatase 62 U/L Aspartate Amino Transf (AST/SGOT) 13 U/L Alanine Aminotransferase (ALT/SGPT) 10 U/L Total Bilirubin 0.4 MG/DL Sodium Level 136 MEQ/L Potassium Level 3.6 MEQ/L Chloride Level 106 MEQ/L Carbon Dioxide Level 23.1 MEQ/L Anion Gap 7 MEQ/L Estimat Glomerular Filtration Rate 131 ML/MIN Urine Color YELLOW Urine Turbidity CLEAR Urine pH 6.0 Urine Specific [place] 1.016 Urine Protein NEG mg/dL Urine Glucose (UA) NEG mg/dL Urine Ketones 10 mg/dL Urine Occult Blood NEG Urine Nitrite NEG Urine Bilirubin NEG Urine Urobilinogen 2.0 MG/DL Urine Leukocyte Esterase SMALL Urine RBC 3 /hpf Urine WBC 6 /hpf Urine Squamous Epithelial Cells 1 /hpf Urine Bacteria RARE /hpf Microscopic Urinalysis Comment CULT NOT INDICATED MDM Medical Decision Making Medical Screen Exam Complete: Yes Emergency Medical Condition: Yes Differential Diagnosis Nephrolithiasis, UTI, Pyelonephritis, Sepsis, Perinephric Abscess, Medullary Sponge Kidney, Nephrocalcinosis Narrative Course CBC, BMP, Urinalysis, Pain Management, Zofran, CT vs. U/S, NS at 125cc/hr, Patient roomed in emergency department, given pain medicine, labs are reassuring. She was offered a CAT scan of her abdomen but she appears comfortable on reassessment. Given the chronic nature of her pain she got a better day have expected management at this time. Discussed follow-up with her charrer is [place] and discussed return to ED criteria. She stable for discharge. Diagnosis Primary Impression: Flank pain Med/Other Pt SpecificInfo: Prescription(s) given Scripts Hydrocodone-Acetaminophen ([place]) 5 Mg-325 Mg Tab 1 TAB PO Q6H Y for PAIN for 10 Days, #10 TAB 0 Refills Prov: Bhavik Velazquez MD 09/11/17 Disposition: 01 DISCHARGE HOME Condition: Stable Bhavik Velazquez MD Sep 11, 2017 08:50
[2017-09-11 09:10] VITALS: RESP 17
[2017-09-11] MEDS ORDERED: SODIUM CHLOR 0.9% 1000 ML INJ 1,000 ML IV ONE (09:15)
[2017-09-11 09:32] LABS: AUTOMATED NEUTROPHIL # 3.6 TH/MM3 (1.8-7.7); BASOPHIL % 0.5 % (0.0-2.0); EOSINOPHIL % 0.3 % (0.0-4.0); HEMO FLAGS DIFF FINAL; LYMPH % 12.2 % (9.0-44.0); LYMPHOCYTE # 0.6 TH/MM3 (1.0-4.8); MEAN CELL VOLUME 85.1 FL (80.0-100.0); MEAN CORPUSCULAR HGB CONC 34.1 % (32.0-36.0); MONO % 7.8 % (0.0-8.0); NEUT % 79.2 % (16.0-70.0); PLATELET COUNT 197 TH/MM3 (150-450); RED BLOOD COUNT 4.71 MIL/MM3 (4.00-5.30); WHITE BLOOD COUNT 4.6 TH/MM3 (4.0-11.0)
[2017-09-11 09:53] LABS: ANION GAP 7 MEQ/L (5-15); AST (GOT) 13 U/L (15-37); BICARBONATE 23.1 MEQ/L (21.0-32.0); BLOOD UREA NITROGEN 5 MG/DL (7-18); CHLORIDE 106 MEQ/L (98-107); GLOMERULAR FILTRATION RATE 131 ML/MIN (>89); POTASSIUM 3.6 MEQ/L (3.5-5.1); SODIUM (NA) 136 MEQ/L (136-145)
[2017-09-11 09:55] LABS: ALT (GPT) 10 U/L (10-53)
[2017-09-11 09:56] LABS: ALKALINE PHOSPHATASE 62 U/L (45-117); TOTAL BILIRUBIN ADULT 0.4 MG/DL (0.2-1.0)
[2017-09-11 11:32] LABS: BACTERIA, URINE RARE /hpf; BLOOD, URINE NEG (NEG); COMMENT (UR) CULT NOT INDICATED; CULTURE IF INDICATED CULT NOT INDICATED; GLUCOSE,URINE NEG (NEG); KETONE, URINE 10 mg/dL (NEG); NITRITE,URINE NEG (NEG); SQUAMOUS EPITHELIAL CELL URINE 1 /hpf (0-5); URINE COLOR YELLOW (YELLW/STRAW)
[2017-09-11] MEDS ORDERED: ACETAMINOPHEN/HYDROcodone 325 MG/5 MG TAB PO ONE (12:00)
[2017-09-11] MEDS ORDERED: NORC5TAB PO (12:15)
[2017-09-11 12:49] VITALS: BP 110/59
== END 2017-09-11 12:50 | disposition home or self-care (01) ==
LOC: NEPE 07:53
DX: R10.9 Unspecified abdominal pain (principal); N25.89 Other disorders resulting from impaired renal tubular function; Z87.442 Personal history of urinary calculi
CPT/HCPCS: 80053; 81001; 84703; 85025; 96361; 96374; 96375; 99285; J2270; J2405; J7030

== ENCOUNTER 2017-10-10 13:10 | Emergency (ER) | payer MEDICAID ==
[~2017-10-10 13:10] MED LIST changes: +NORC5TAB PO
[2017-10-10 13:13] VITALS: BP 133/98; PULSE 100; RESP 24; TEMP 98.5; O2SAT 100
[2017-10-10] MEDS ORDERED: SODIUM CHLOR 0.9% 1000 ML INJ 1,000 ML IV SCH (13:46)
--- NOTE | 2017-10-10 13:46 | PD ---
HPI Chief Complaint: Flank/Kidney Pain Time Seen by Provider: 13:41 Travel History International Travel<30 days: No Contact w/Intl Traveler<30days: No Traveled to known affect area: No History of Present Illness HPI 37-year-old female with history of medullary sponge kidney disease presents to the emergency department for evaluation of the left flank pain. Patient states this started last evening but has moved now to her left lower abdomen radiating to her groin. She states the pain is a 10 out of 10 and she cannot get comfortable. It is stabbing in nature. She has been nauseous and vomiting since this morning. She has felt chilled with a known fever. States that she cannot urinate due to the pain. Denies any chest or tightness. No difficulty breathing. No other symptoms to report. PFSH Past Medical History Hx Anticoagulant Therapy: No Anemia: Yes Anxiety: Yes Depression: Yes Cancer: No Cardiovascular Problems: No Chemotherapy: No Chest Pain: Yes Cerebrovascular Accident: No Cystic Fibrosis: No Diabetes: No Diminished Hearing: No Endocrine: Yes (gestational diabities) Gastrointestinal Disorders: Yes Genitourinary: Yes (polynephrocalcinosu, UTI, MEDULARY SPONGE, DISTAL RENAL TUBULAR ACIDOSIS) Headaches: Yes Hepatitis: No Hiatal Hernia: No Hypertension: No Immune Disorder: No Implanted Vascular Access Dvce: No Kidney Stones: Yes Musculoskeletal: No Neurologic: No Psychiatric: No Reproductive: No Respiratory: No Immunizations Current: Yes Migraines: Yes Renal Failure: Yes Shingles: Yes Thyroid Disease: No ?: Not : 6 Para: 4 Miscarriage: 2 : 0 Dilation and Curettage (D&C): Yes (X 1) Past Surgical History Abdominal Surgery: No AICD: No Body Medical Devices: NONE Cardiac Surgery: No Ear Surgery: No Eye Surgery: No Genitourinary Surgery: Yes (CYSTO-STENTS, LITHOTRIPSY, CYSTOSCOPY) Gynecologic Surgery: No Hysterectomy: No Joint Replacement: No Oral Surgery: No Pacemaker: No Thoracic Surgery: No Other Surgery: Yes (RENAL STENTS (HAVE BEEN REMOVED)) Social History Alcohol Use: No Tobacco Use: No (quit 2012) Substance Use: No Allergies-Medications (Allergen,Severity, Reaction): Coded Allergies: vancomycin (Verified Allergy, Severe, RASH, 10/10/17) diclofenac (Verified Adverse Reaction, Severe, RENAL PRECAUTIONS, 10/10/17 ) etodolac (Verified Adverse Reaction, Severe, RENAL PRECAUTIONS, 10/10/17) flurbiprofen (Verified Adverse Reaction, Severe, RENAL PRECAUTIONS, ) ibuprofen (Verified Adverse Reaction, Severe, RENAL PRECAUTIONS, 10/10/17) indomethacin (Verified Adverse Reaction, Severe, RENAL PRECAUTIONS, ) ketoprofen (Verified Adverse Reaction, Severe, RENAL PRECAUTIONS, 10/10/17 ) ketorolac (Verified Adverse Reaction, Severe, RENAL PRECAUTIONS, 10/10/17) naproxen (Verified Adverse Reaction, Severe, RENAL PRECAUTIONS, 10/10/17) oxaprozin (Verified Adverse Reaction, Severe, RENAL PRECAUTIONS, 10/10/17) Reported Meds & Prescriptions Reported Meds & Active Scripts Active Cipro (Ciprofloxacin HCl) 500 Mg Tab 500 Mg PO BID 10 Days [place] (Hydrocodone-Acetaminophen) 5 Mg-325 Mg Tab 1 Tab PO Q6H PRN 10 Days Percocet (Oxycodone-Acetaminophen) 5-325 mg Tab 1 Tab PO Q4H PRN Reported Lamotrigine 25 Mg Tab Unknown Dose PO DAILY Zoloft (Sertraline HCl) 50 Mg Tab 50 Mg PO DAILY Ativan (Lorazepam) 0.5 Mg Tab 0.5 Mg PO HS PRN Review of Systems Except as stated in HPI: all other systems reviewed are Neg Physical Exam Narrative GENERAL: Well-nourished female patient, in apparent distress secondary to pain, pacing around the room, holding her left side. SKIN: Focused skin assessment warm/dry. HEAD: Atraumatic. Normocephalic. EYES: Pupils equal and round. No scleral icterus. No injection or drainage. ENT: No nasal bleeding or discharge. Mucous membranes pink and moist. NECK: Trachea midline. No JVD. CARDIOVASCULAR: Tachycardic rate and rhythm. No murmur appreciated. RESPIRATORY: No accessory muscle use. Clear to auscultation. Breath sounds equal bilaterally. GASTROINTESTINAL: Abdomen soft, nondistended. Left lower quadrant tenderness to palpation. Mild guarding. No rebound tenderness. No significant CVA tenderness. Hepatic and splenic margins not palpable. MUSCULOSKELETAL: No obvious deformities. No clubbing. No cyanosis. No edema. NEUROLOGICAL: Awake and alert. No obvious cranial nerve deficits. Motor grossly within normal limits. Normal speech. PSYCHIATRIC: Appropriate mood and affect; insight and judgment normal. Data Data Last Documented VS Vital Signs Date Time Temp Pulse Resp B/P (MAP) Pulse Ox O2 Delivery O2 Flow Rate FiO2 10/10/17 15:29 10/10/17 13:27 22 10/10/17 13:13 98.5 100 100 Room Air Orders Orders Basic Metabolic Panel (Bmp) (10/10/17 13:46) Complete Blood Count With Diff (10/10/17 13:46) Urinalysis - C+S If Indicated (10/10/17 13:46) Iv Access Insert/Monitor (10/10/17 13:46) Ecg Monitoring (10/10/17 13:46) Oximetry (10/10/17 13:46) Ondansetron Inj (Zofran Inj) (10/10/17 14:00) Sodium Chlor 0.9% 1000 Ml Inj (Ns 1000 M (10/10/17 13:46) Sodium Chloride 0.9% Flush (Ns Flush) (10/10/17 14:00) Hydromorphone Pf Inj (Dilaudid Pf Inj) (10/10/17 14:00) Urine Culture (10/10/17 14:13) Ed Discharge Order (10/10/17 15:09) Labs Laboratory Tests Test 10/10/17 14:02 10/10/17 14:13 White Blood Count 9.4 TH/MM3 Red Blood Count 4.52 MIL/MM3 Hemoglobin 13.2 GM/DL Hematocrit 38.3 % Mean Corpuscular Volume 84.8 FL Mean Corpuscular Hemoglobin 29.1 PG Mean Corpuscular Hemoglobin Concent 34.4 % Red Cell Distribution Width 13.7 % Platelet Count 193 TH/MM3 Mean Platelet Volume 8.2 FL Neutrophils (%) (Auto) 76.1 % Lymphocytes (%) (Auto) 17.1 % Monocytes (%) (Auto) 5.9 % Eosinophils (%) (Auto) 0.3 % Basophils (%) (Auto) 0.6 % Neutrophils # (Auto) 7.1 TH/MM3 Lymphocytes # (Auto) 1.6 TH/MM3 Monocytes # (Auto) 0.6 TH/MM3 Eosinophils # (Auto) 0.0 TH/MM3 Basophils # (Auto) 0.1 TH/MM3 CBC Comment DIFF FINAL Differential Comment Blood Urea Nitrogen 8 MG/DL Creatinine 0.61 MG/DL Random Glucose 79 MG/DL Calcium Level 9.3 MG/DL Sodium Level 136 MEQ/L Potassium Level 3.5 MEQ/L Chloride Level 103 MEQ/L Carbon Dioxide Level 24.3 MEQ/L Anion Gap 9 MEQ/L Estimat Glomerular Filtration Rate 112 ML/MIN Urine Color LIGHT-YELLOW Urine Turbidity CLEAR Urine pH 6.0 Urine Specific [place] 1.009 Urine Protein NEG mg/dL Urine Glucose (UA) NEG mg/dL Urine Ketones NEG mg/dL Urine Occult Blood MOD Urine Nitrite NEG Urine Bilirubin NEG Urine Urobilinogen LESS THAN 2.0 MG/DL Urine Leukocyte Esterase SMALL Urine RBC 63 /hpf Urine WBC 19 /hpf Urine Squamous Epithelial Cells <1 /hpf Urine Bacteria OCC /hpf Microscopic Urinalysis Comment CULTURE INDICATED MDM Medical Decision Making Medical Screen Exam Complete: Yes Emergency Medical Condition: Yes Medical Record Reviewed: Yes Differential Diagnosis UTI versus renal calculi versus narcotic seeking Narrative Course 37-year-old female presents emergency department for evaluation of left lower quadrant abdominal pain that began as left flank pain last evening. Patient does appear uncomfortable. She is pacing around the room. Patient's been seen several times for this in the past. She is treated for pain and given IV fluids. Lab work is sent for evaluation. Laboratory Tests Test 10/10/17 14:02 10/10/17 14:13 White Blood Count 9.4 TH/MM3 Red Blood Count 4.52 MIL/MM3 Hemoglobin 13.2 GM/DL Hematocrit 38.3 % Mean Corpuscular Volume 84.8 FL Mean Corpuscular Hemoglobin 29.1 PG Mean Corpuscular Hemoglobin Concent 34.4 % Red Cell Distribution Width 13.7 % Platelet Count 193 TH/MM3 Mean Platelet Volume 8.2 FL Neutrophils (%) (Auto) 76.1 % Lymphocytes (%) (Auto) 17.1 % Monocytes (%) (Auto) 5.9 % Eosinophils (%) (Auto) 0.3 % Basophils (%) (Auto) 0.6 % Neutrophils # (Auto) 7.1 TH/MM3 Lymphocytes # (Auto) 1.6 TH/MM3 Monocytes # (Auto) 0.6 TH/MM3 Eosinophils # (Auto) 0.0 TH/MM3 Basophils # (Auto) 0.1 TH/MM3 CBC Comment DIFF FINAL Differential Comment Blood Urea Nitrogen 8 MG/DL Creatinine 0.61 MG/DL Random Glucose 79 MG/DL Calcium Level 9.3 MG/DL Sodium Level 136 MEQ/L Potassium Level 3.5 MEQ/L Chloride Level 103 MEQ/L Carbon Dioxide Level 24.3 MEQ/L Anion Gap 9 MEQ/L Estimat Glomerular Filtration Rate 112 ML/MIN Urine Color LIGHT-YELLOW Urine Turbidity CLEAR Urine pH 6.0 Urine Specific [place] 1.009 Urine Protein NEG mg/dL Urine Glucose (UA) NEG mg/dL Urine Ketones NEG mg/dL Urine Occult Blood MOD Urine Nitrite NEG Urine Bilirubin NEG Urine Urobilinogen LESS THAN 2.0 MG/DL Urine Leukocyte Esterase SMALL Urine RBC 63 /hpf Urine WBC 19 /hpf Urine Squamous Epithelial Cells <1 /hpf Urine Bacteria OCC /hpf Microscopic Urinalysis Comment CULTURE INDICATED Lab work is reviewed. Patient be treated for pyelonephritis. After being treated for pain, patient is restful on the bed. She has additional pain control at home and is encouraged to take this. She is also encouraged follow- up with her urologist. She agrees to return immediately with any acute worsening symptoms. Diagnosis Primary Impression: Pyelonephritis Additional Impression: Medullary sponge kidney Referrals: Primary Care Physician Patient Instructions: Flank Pain (ED), General Instructions Additional Instructions: Maintain adequate oral hydration Follow-up with a primary care provider Continue pain medication as already prescribed Follow-up with your urologist Return immediately to the emergency department with any acute worsening of symptoms Med/Other Pt SpecificInfo: Prescription(s) given Scripts Ciprofloxacin (Cipro) 500 Mg Tab 500 MG PO BID for Infection for 10 Days, #20 TAB 0 Refills Prov: Kellen Powell 10/10/17 Disposition: 01 DISCHARGE HOME Condition: Stable Kellen Powell Oct 10, 2017 13:46
[2017-10-10] MEDS ORDERED: ONDANSETRON HCL 4 MG/2 ML VIAL IVP ONE (14:00)
[2017-10-10] MEDS ORDERED: SODIUM CHLORIDE 0.9% FLUSH 10 ML FLUSH IV FLUSH PRN (14:00)
[2017-10-10] MEDS ORDERED: HYDROmorphone HCL PF 2 MG/ML VIAL IV PUSH ONE (14:00)
[2017-10-10 14:46] LABS: BACTERIA, URINE OCC /hpf; BILIRUBIN, URINE NEG (NEG); BLOOD, URINE MOD (NEG); GLUCOSE,URINE NEG (NEG); KETONE, URINE NEG (NEG); NITRITE,URINE NEG (NEG); SQUAMOUS EPITHELIAL CELL URINE <1 /hpf (0-5); URINE COLOR LIGHT-YELLOW (YELLW/STRAW); URINE LEUKOCYTE ESTERASE SMALL (NEG)
[2017-10-10 14:50] LABS: AUTOMATED NEUTROPHIL # 7.1 TH/MM3 (1.8-7.7); BASOPHIL # 0.1 TH/MM3 (0-0.2); BASOPHIL % 0.6 % (0.0-2.0); EOSINOPHIL % 0.3 % (0.0-4.0); HEMATOCRIT 38.3 % (35.0-46.0); HEMOGLOBIN 13.2 GM/DL (11.6-15.3); LYMPH % 17.1 % (9.0-44.0); LYMPHOCYTE # 1.6 TH/MM3 (1.0-4.8); MEAN CELL VOLUME 84.8 FL (80.0-100.0); MEAN CORPUSCULAR HEMOGLOBIN 29.1 PG (27.0-34.0); MEAN CORPUSCULAR HGB CONC 34.4 % (32.0-36.0); MEAN PLATELET VOLUME 8.2 FL (7.0-11.0); MONO % 5.9 % (0.0-8.0); MONOCYTE # 0.6 TH/MM3 (0-0.9); NEUT % 76.1 % (16.0-70.0); PLATELET COUNT 193 TH/MM3 (150-450); RED BLOOD COUNT 4.52 MIL/MM3 (4.00-5.30); RED CELL DISTRIBUTION WIDTH 13.7 % (11.6-17.2); WHITE BLOOD COUNT 9.4 TH/MM3 (4.0-11.0)
[2017-10-10 15:05] LABS: BICARBONATE 24.3 MEQ/L (21.0-32.0); CALCIUM 9.3 MG/DL (8.5-10.1); CREATININE 0.61 MG/DL (0.50-1.00)
[2017-10-10] MEDS ORDERED: CIPR-9 PO (15:11)
== END 2017-10-10 15:31 | disposition home or self-care (01) ==
LOC: NEPD 13:10
DX: N12 Tubulo-interstitial nephritis, not specified as acute or chronic (principal); Q61.5 Medullary cystic kidney; R10.9 Unspecified abdominal pain; F41.9 Anxiety disorder, unspecified; F32.9 Major depressive disorder, single episode, unspecified; Z87.442 Personal history of urinary calculi; Z87.891 Personal history of nicotine dependence; Z88.1 Allergy status to other antibiotic agents; Z88.6 Allergy status to analgesic agent
CPT/HCPCS: 80048; 81001; 85025; 87086; 96374; 96375; 99284; J1170; J2405; J7030

== ENCOUNTER 2017-12-04 09:34 | Emergency (ER) | payer MEDICAID ==
[~2017-12-04] VITALS: Ht 175.3 cm; Wt 70.0 kg
[~2017-12-04 09:34] MED LIST changes: +CIPR-9 PO
[2017-12-04 09:35] VITALS: BP 177/67; PULSE 93; RESP 16; TEMP 97.6; O2SAT 99
[2017-12-04] MEDS ORDERED: SODIUM CHLOR 0.9% 1000 ML INJ 1,000 ML IV SCH (10:18)
--- NOTE | 2017-12-04 10:25 | PD ---
HPI Chief Complaint: Complaint Time Seen by Provider: 10:14 Travel History International Travel<30 days: No Contact w/Intl Traveler<30days: No Traveled to known affect area: No History of Present Illness HPI The patient is a 37-year-old female who presents to the emergency department for evaluation of possible nephrolithiasis. The patient has a history of nephrolithiasis, medullary sponge kidney, and recurrent UTIs with pyelonephritis. The patient was placed on Bactrim for 5 days last week, sweats to Cipro on Saturday, but continues to have pain. The pain is bilateral in the flank, as well as suprapubic discomfort. She does complain of dysuria, hematuria, and mild frequency. She does note subjective fevers with chills. She denies any nausea or vomiting. Symptoms are moderate. There are no current alleviating or exacerbating factors. The patient's primary physician sent her to the emergency department for imaging for kidney stone, from the [facility]. PFSH Past Medical History Hx Anticoagulant Therapy: No Anemia: Yes Anxiety: Yes Depression: Yes Cancer: No Cardiovascular Problems: No Chemotherapy: No Chest Pain: Yes Cerebrovascular Accident: No Cystic Fibrosis: No Diabetes: No Diminished Hearing: No Endocrine: Yes (gestational diabities) Gastrointestinal Disorders: Yes Genitourinary: Yes (polynephrocalcinosu, UTI, MEDULARY SPONGE, DISTAL RENAL TUBULAR ACIDOSIS) Headaches: Yes Hepatitis: No Hiatal Hernia: No Hypertension: No Immune Disorder: No Implanted Vascular Access Dvce: No Kidney Stones: Yes Musculoskeletal: No Neurologic: No Psychiatric: No Reproductive: No Respiratory: No Immunizations Current: Yes Migraines: Yes Renal Failure: Yes Shingles: Yes Thyroid Disease: No ?: Not LMP: 11/27/17 : 6 Para: 4 Miscarriage: 2 : 0 Dilation and Curettage (D&C): Yes (X 1) Past Surgical History Abdominal Surgery: No AICD: No Body Medical Devices: NONE Cardiac Surgery: No Ear Surgery: No Eye Surgery: No Genitourinary Surgery: Yes (CYSTO-STENTS, LITHOTRIPSY, CYSTOSCOPY) Gynecologic Surgery: No Hysterectomy: No Joint Replacement: No Oral Surgery: No Pacemaker: No Thoracic Surgery: No Other Surgery: Yes (RENAL STENTS (HAVE BEEN REMOVED)) Social History Alcohol Use: No Tobacco Use: No (quit 2012) Substance Use: No Allergies-Medications (Allergen,Severity, Reaction): Coded Allergies: vancomycin (Verified Allergy, Severe, RASH, 12/04/17) NSAIDS (Non-Steroidal Anti-Inflamma (Verified Allergy, Intermediate, ) diclofenac (Verified Adverse Reaction, Severe, RENAL PRECAUTIONS, 12/04/17) etodolac (Verified Adverse Reaction, Severe, RENAL PRECAUTIONS, 12/04/17) flurbiprofen (Verified Adverse Reaction, Severe, RENAL PRECAUTIONS, ) ibuprofen (Verified Adverse Reaction, Severe, RENAL PRECAUTIONS, 12/04/17) indomethacin (Verified Adverse Reaction, Severe, RENAL PRECAUTIONS, ) ketoprofen (Verified Adverse Reaction, Severe, RENAL PRECAUTIONS, 12/04/17) ketorolac (Verified Adverse Reaction, Severe, RENAL PRECAUTIONS, 12/04/17) naproxen (Verified Adverse Reaction, Severe, RENAL PRECAUTIONS, 12/04/17) oxaprozin (Verified Adverse Reaction, Severe, RENAL PRECAUTIONS, 12/04/17) Reported Meds & Prescriptions Reported Meds & Active Scripts Active Cipro (Ciprofloxacin HCl) 500 Mg Tab 500 Mg PO BID 10 Days Mcneal (Hydrocodone-Acetaminophen) 5 Mg-325 Mg Tab 1 Tab PO Q6H PRN 10 Days Percocet (Oxycodone-Acetaminophen) 5-325 mg Tab 1 Tab PO Q4H PRN Reported Lamotrigine 25 Mg Tab Unknown Dose PO DAILY Zoloft (Sertraline HCl) 50 Mg Tab 50 Mg PO DAILY Ativan (Lorazepam) 0.5 Mg Tab 0.5 Mg PO HS PRN Review of Systems Except as stated in HPI: all other systems reviewed are Neg General / Constitutional: Positive: Fever, Chills Cardiovascular: No: Chest Pain or Discomfort Respiratory: No: Shortness of Breath Gastrointestinal: Positive: Abdominal Pain, No: Nausea, Vomiting Genitourinary: Positive: Dysuria, Hematuria, Flank Pain Physical Exam Narrative GENERAL: Awake, alert, pleasant 37-year-old female who appears her stated age and is in no acute respiratory distress. SKIN: Focused skin assessment warm/dry. HEAD: Atraumatic. Normocephalic. EYES: Pupils equal and round. No scleral icterus. No injection or drainage. ENT: No nasal bleeding or discharge. Mucous membranes pink and moist. NECK: Trachea midline. No JVD. CARDIOVASCULAR: Regular rate and rhythm. No murmur appreciated. Heart rate in the 90s. RESPIRATORY: No accessory muscle use. Clear to auscultation. Breath sounds equal bilaterally. GASTROINTESTINAL: Abdomen soft, suprapubic discomfort. Pelvic: The exam was performed in the presence of a female nurse. Minimal blood in the vaginal vault. Cervix is posterior, slightly open, no cervical motion tenderness or adnexal tenderness. Back: No CVA tenderness. MUSCULOSKELETAL: No obvious deformities. No clubbing. No cyanosis. No edema. NEUROLOGICAL: Awake and alert. No obvious cranial nerve deficits. Motor grossly within normal limits. Normal speech. PSYCHIATRIC: Appropriate mood and affect; insight and judgment normal. Data Data Last Documented VS Vital Signs Date Time Temp Pulse Resp B/P (MAP) Pulse Ox O2 Delivery O2 Flow Rate FiO2 12/04/17 09:35 97.6 93 16 177/67 (103) 99 Orders Orders Complete Blood Count With Diff (12/04/17 10:18) Comprehensive Metabolic Panel (12/04/17 10:18) Lipase (12/04/17 10:18) Lactic Acid (12/04/17 10:18) Urinalysis - C+S If Indicated (12/04/17 10:18) Ct Abd/Pel W/O Iv Contrast (12/04/17 10:18) Iv Access Insert/Monitor (12/04/17 10:18) Ecg Monitoring (12/04/17 10:18) Oximetry (12/04/17 10:18) Morphine Inj (Morphine Inj) (12/04/17 10:30) Ondansetron Inj (Zofran Inj) (12/04/17 10:30) Sodium Chlor 0.9% 1000 Ml Inj (Ns 1000 M (12/04/17 10:18) Sodium Chloride 0.9% Flush (Ns Flush) (12/04/17 10:30) Ed Urine Pregnancytest Poc (12/04/17 10:25) Us Pelvis Comp Computer Technology Trainer/Non-Preg (12/04/17 ) Morphine Inj (Morphine Inj) (12/04/17 14:00) Labs Laboratory Tests Test 12/04/17 10:40 12/04/17 11:15 Urine Color LIGHT-YELLOW Urine Turbidity CLEAR Urine pH 7.5 Urine Specific [place] 1.007 Urine Protein NEG mg/dL Urine Glucose (UA) NEG mg/dL Urine Ketones NEG mg/dL Urine Occult Blood NEG Urine Nitrite NEG Urine Bilirubin NEG Urine Urobilinogen LESS THAN 2.0 MG/DL Urine Leukocyte Esterase NEG Urine RBC 1 /hpf Urine WBC 1 /hpf Urine Squamous Epithelial Cells <1 /hpf Microscopic Urinalysis Comment CULT NOT INDICATED White Blood Count 7.0 TH/MM3 Red Blood Count 4.25 MIL/MM3 Hemoglobin 12.7 GM/DL Hematocrit 35.8 % Mean Corpuscular Volume 84.4 FL Mean Corpuscular Hemoglobin 29.9 PG Mean Corpuscular Hemoglobin Concent 35.5 % Red Cell Distribution Width 14.5 % Platelet Count 208 TH/MM3 Mean Platelet Volume 7.0 FL Neutrophils (%) (Auto) 74.2 % Lymphocytes (%) (Auto) 17.0 % Monocytes (%) (Auto) 6.7 % Eosinophils (%) (Auto) 1.2 % Basophils (%) (Auto) 0.9 % Neutrophils # (Auto) 5.2 TH/MM3 Lymphocytes # (Auto) 1.2 TH/MM3 Monocytes # (Auto) 0.5 TH/MM3 Eosinophils # (Auto) 0.1 TH/MM3 Basophils # (Auto) 0.1 TH/MM3 CBC Comment DIFF FINAL Differential Comment Blood Urea Nitrogen 8 MG/DL Creatinine 0.60 MG/DL Random Glucose 86 MG/DL Total Protein 7.7 GM/DL Albumin 3.2 GM/DL Calcium Level 8.8 MG/DL Alkaline Phosphatase 69 U/L Aspartate Amino Transf (AST/SGOT) 16 U/L Alanine Aminotransferase (ALT/SGPT) 16 U/L Total Bilirubin 0.2 MG/DL Sodium Level 140 MEQ/L Potassium Level 4.1 MEQ/L Chloride Level 108 MEQ/L Carbon Dioxide Level 27.1 MEQ/L Anion Gap 5 MEQ/L Estimat Glomerular Filtration Rate 114 ML/MIN Lactic Acid Level 1.0 mmol/L Lipase 136 U/L [facility] Medical Decision Making Medical Screen Exam Complete: Yes Emergency Medical Condition: Yes Medical Record Reviewed: Yes Interpretation(s) Last Impressions Abdomen/Pelvis CT 12/04/17 1018 Signed Impressions: Service Date/Time: Monday, December 04, 2017 12:01 - CONCLUSION: 1. 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 No ureteral stones are visualized and there is no hydronephrosis. 2. Uterus appears very enlarged and lobular in shape representing a significant change in size since the prior study from approximately 6 months ago. Consider correlation with pelvis ultrasound for further evaluation. Willard Dietrich MD Pelvis Ultrasound 12/04/17 0000 Signed Impressions: Service Date/Time: Monday, December 04, 2017 12:46 - CONCLUSION: 1. Mild prominence of the endometrial stripe within ovoid, 3.2 x 2.0 x 1.1 cm predominantly cystic area in the vaginal canal may all be related to phase of menses. 2. 1 cm complex area in the left ovary is overtly benign and may represent hemorrhagic or proteinaceous cyst. 3. Otherwise negative. No free fluid. Celio Portillo MD Laboratory Tests Test 12/04/17 10:40 12/04/17 11:15 Urine Color LIGHT-YELLOW Urine Turbidity CLEAR Urine pH 7.5 Urine Specific [place] 1.007 Urine Protein NEG mg/dL Urine Glucose (UA) NEG mg/dL Urine Ketones NEG mg/dL Urine Occult Blood NEG Urine Nitrite NEG Urine Bilirubin NEG Urine Urobilinogen LESS THAN 2.0 MG/DL Urine Leukocyte Esterase NEG Urine RBC 1 /hpf Urine WBC 1 /hpf Urine Squamous Epithelial Cells <1 /hpf Microscopic Urinalysis Comment CULT NOT INDICATED White Blood Count 7.0 TH/MM3 Red Blood Count 4.25 MIL/MM3 Hemoglobin 12.7 GM/DL Hematocrit 35.8 % Mean Corpuscular Volume 84.4 FL Mean Corpuscular Hemoglobin 29.9 PG Mean Corpuscular Hemoglobin Concent 35.5 % Red Cell Distribution Width 14.5 % Platelet Count 208 TH/MM3 Mean Platelet Volume 7.0 FL Neutrophils (%) (Auto) 74.2 % Lymphocytes (%) (Auto) 17.0 % Monocytes (%) (Auto) 6.7 % Eosinophils (%) (Auto) 1.2 % Basophils (%) (Auto) 0.9 % Neutrophils # (Auto) 5.2 TH/MM3 Lymphocytes # (Auto) 1.2 TH/MM3 Monocytes # (Auto) 0.5 TH/MM3 Eosinophils # (Auto) 0.1 TH/MM3 Basophils # (Auto) 0.1 TH/MM3 CBC Comment DIFF FINAL Differential Comment Blood Urea Nitrogen 8 MG/DL Creatinine 0.60 MG/DL Random Glucose 86 MG/DL Total Protein 7.7 GM/DL Albumin 3.2 GM/DL Calcium Level 8.8 MG/DL Alkaline Phosphatase 69 U/L Aspartate Amino Transf (AST/SGOT) 16 U/L Alanine Aminotransferase (ALT/SGPT) 16 U/L Total Bilirubin 0.2 MG/DL Sodium Level 140 MEQ/L Potassium Level 4.1 MEQ/L Chloride Level 108 MEQ/L Carbon Dioxide Level 27.1 MEQ/L Anion Gap 5 MEQ/L Estimat Glomerular Filtration Rate 114 ML/MIN Lactic Acid Level 1.0 mmol/L Lipase 136 U/L Differential Diagnosis Differential diagnosis includes pyelonephritis, hydronephrosis, obstructive uropathy, UTI, acute kidney injury, dehydration. Narrative Course IV was established, labs are drawn and sent, and the patient was placed on cardiac telemetry monitoring and continuous pulse oximetry monitoring. 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 Bedside UA test was obtained, UA was sent to lab. Noncontrast CT of the abdomen and pelvis was performed. Bedside UA test was positive. I went back in a have a discussion with the patient, she states she had a surgical performed 1 week ago on Saturday in [place], [place]. The patient states she was put under by gas and had a procedure performed and then had a postprocedure ultrasound performed. Therefore, I called CT to let them know that the beta would be positive, however , she had a surgical one week ago. CT is unremarkable except for a large lobular uterus, not surprising since patient had an elective for 22-week-old fetus one week ago. Ultrasound was performed to evaluate for retained products of conception. Questionable cystic area in the vaginal vault, not seen on speculum examination room. [place] [id number], after discussion was agreed the patient received doxycycline and pain medications. She is stable for outpatient follow-up. Diagnosis Primary Impression: Pelvic pain in female Referrals: [facility] Patient Instructions: General Instructions Additional Instructions: Medications as directed. Please provide the patient a copy of her CT results and ultrasound results at discharge. Follow-up with women[facility] care clinic. Return if symptoms worsen or progress. Med/Other Pt SpecificInfo: Prescription(s) given Scripts Doxycycline Hyclate (Doxycycline Hyclate) 100 Mg Cap 100 MG PO BID for Infection, #20 CAP 0 Refills Prov: Amari Vaughn MD 12/04/17 Hydrocodone-Acetaminophen (Mcneal) 5 Mg-325 Mg Tab 1 TAB PO Q6H Y for PAIN, #12 TAB 0 Refills Prov: Amari Vaughn MD 12/04/17 Disposition: 01 DISCHARGE HOME Condition: Stable Amari Vaughn MD Dec 04, 2017 10:25
[2017-12-04] MEDS ORDERED: MORPHINE SULFATE 4 MG/ML INJ IV PUSH ONE ×2 (10:30→14:00)
[2017-12-04] MEDS ORDERED: ONDANSETRON HCL 4 MG/2 ML VIAL IVP ONE (10:30)
[2017-12-04] MEDS ORDERED: SODIUM CHLORIDE 0.9% FLUSH 10 ML FLUSH IV FLUSH PRN (10:30)
[2017-12-04 11:07] LABS: BILIRUBIN, URINE NEG (NEG); BLOOD, URINE NEG (NEG); GLUCOSE,URINE NEG (NEG); KETONE, URINE NEG (NEG); NITRITE,URINE NEG (NEG); PH, URINE 7.5 (5.0-8.5); SQUAMOUS EPITHELIAL CELL URINE <1 /hpf (0-5); URINE COLOR LIGHT-YELLOW (YELLW/STRAW); URINE LEUKOCYTE ESTERASE NEG (NEG)
[2017-12-04 11:38] LABS: AUTOMATED NEUTROPHIL # 5.2 TH/MM3 (1.8-7.7); BASOPHIL # 0.1 TH/MM3 (0-0.2); BASOPHIL % 0.9 % (0.0-2.0); EOSINOPHIL # 0.1 TH/MM3 (0-0.4); EOSINOPHIL % 1.2 % (0.0-4.0); HEMATOCRIT 35.8 % (35.0-46.0); HEMOGLOBIN 12.7 GM/DL (11.6-15.3); LYMPHOCYTE # 1.2 TH/MM3 (1.0-4.8); MEAN CELL VOLUME 84.4 FL (80.0-100.0); MEAN CORPUSCULAR HEMOGLOBIN 29.9 PG (27.0-34.0); MEAN CORPUSCULAR HGB CONC 35.5 % (32.0-36.0); MONO % 6.7 % (0.0-8.0); MONOCYTE # 0.5 TH/MM3 (0-0.9); NEUT % 74.2 % (16.0-70.0); PLATELET COUNT 208 TH/MM3 (150-450); RED BLOOD COUNT 4.25 MIL/MM3 (4.00-5.30); RED CELL DISTRIBUTION WIDTH 14.5 % (11.6-17.2)
[2017-12-04 11:59] LABS: ALBUMIN 3.2 GM/DL (3.4-5.0); AST (GOT) 16 U/L (15-37); BICARBONATE 27.1 MEQ/L (21.0-32.0); BLOOD UREA NITROGEN 8 MG/DL (7-18); CALCIUM 8.8 MG/DL (8.5-10.1); CHLORIDE 108 MEQ/L (98-107); GLOMERULAR FILTRATION RATE 114 ML/MIN (>89); GLUCOSE,RANDOM 86 MG/DL (74-106); SODIUM (NA) 140 MEQ/L (136-145)
[2017-12-04 12:01] LABS: ALKALINE PHOSPHATASE 69 U/L (45-117); ALT (GPT) 16 U/L (10-53); TOTAL BILIRUBIN ADULT 0.2 MG/DL (0.2-1.0); TOTAL PROTEIN 7.7 GM/DL (6.4-8.2)
--- NOTE | 2017-12-04 12:18 | RADRPT ---
EXAM DATE/TIME: 12/04/2017 12:01 [facility] COMPARISON: CT ABDOMEN & PELVIS W/O CONTRAST, June 09, 2017, 19:19. INDICATIONS : Bilateral flank pain, blood in urine. ORAL CONTRAST: No oral contrast ingested. RADIATION DOSE: 6.04 CTDIvol (mGy) MEDICAL HISTORY : Renal failure, chronic. Anemia. SURGICAL HISTORY : None. ENCOUNTER: Initial ACUITY: 2 days PAIN SCALE: 7/10 LOCATION: Bilateral flank TECHNIQUE: Volumetric scanning of the abdomen and pelvis was performed. Using automated exposure control and ad justment of the mA and/or kV according to patient size, radiation dose was kept as low as reasonably achievable to obtain optimal diagnostic quality images. DICOM format image data is available electro nically for review and comparison. FINDINGS: LOWER LUNGS: The visualized lower lungs are clear. LIVER: Homogeneous density without lesion. There is no dilation of the biliary tree. No calcified gallston es. SPLEEN: Normal size without lesion. PANCREAS: Within normal limits. KIDNEYS: Normal in size and shape. There is no mass or hydronephrosis. There is extensive medullary nephrocal cinosis bilaterally, stable from the prior study. ADRENAL GLANDS: Within normal limits. VASCULAR: There is no aortic aneurysm. BOWEL/MESENTERY: The stomach, small bowel, and colon demonstrate no acute abnormality. There is no free intraperitone al air. No definite free fluid is seen. Appendix is normal. ABDOMINAL WALL: Within normal limits. RETROPERITONEUM: There is no lymphadenopathy. BLADDER: No wall thickening or mass. REPRODUCTIVE: Uterus appears very enlarged and globular in shape representing a significant change in size from the prior study. No discrete mass is appreciated on this noncontrast examination. INGUINAL: There is no lymphadenopathy or hernia. MUSCULOSKELETAL: Within normal limits for patient age. CONCLUSION: 1. 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 No ureteral stones are visualized and the re is no hydronephrosis. 2. Uterus appears very enlarged and lobular in shape representing a significant change in size since the prior study from approximately 6 months ago. Consider correlation with pelvis ultrasound for furt her evaluation. Willard Dietrich MD on December 04, 2017 at 12:12 Board Certified Radiologist. This report was verified electronically.
--- NOTE | 2017-12-04 13:52 | RADRPT ---
EXAM DATE/TIME: 12/04/2017 12:46 [facility] COMPARISON: No previous studies available for comparison. EXTERNAL COMPARISON : [facility], US PELVIC COMPLETE W/ TRANSVAGINAL, February 16, 2015, December 21, 2014, INDICATIONS : Pelvic pain. MEDICAL HISTORY : Renal calculi. Polynephrocalcinosu. UTI. Medullary sponge kidney. Distal renal tubular acidosis. Gestational diabetes. Anemia. Shingles. Chest pain. Migraines. Depression. Anxiety. SURGICAL HISTORY : Lithrotripsy. Cysto stents. D&C. ENCOUNTER: Initial ACUITY: 1 week PAIN SCORE: 5/10 LOCATION: Bilateral pelvis MEASUREMENTS: UTERUS: 11.7 x 10.4 x 6.3 cm ENDOMETRIAL STRIPE: 17 mm RIGHT OVARY: 1.8 x 2.1 x 2.0 cm LEFT OVARY: 1.7 x 1.3 x 2.2 cm FINDINGS: UTERUS: The myometrium has homogeneous echotexture without mass. Endometrial stripe is prominent, likely rel ated to phase of menses. There is an oval, 1.2 x 2.0 x 1.1 cm predominantly cystic area in the vagina l canal which again, may be related to menses. RIGHT OVARY: Ovary contains no mass or significant cystic lesion. LEFT OVARY: Ovary contains no mass or significant cystic lesion. A 1 cm complex area in the left ovary may repre sent hemorrhagic or proteinaceous cyst. MISCELLANEOUS: No free fluid. CONCLUSION: 1. Mild prominence of the endometrial stripe within ovoid, 3.2 x 2.0 x 1.1 cm predominantly cystic ar ea in the vaginal canal may all be related to phase of menses. 2. 1 cm complex area in the left ovary is overtly benign and may represent hemorrhagic or proteinaceo us cyst. 3. Otherwise negative. No free fluid. Celio Portillo MD on December 04, 2017 at 13:46 Board Certified Radiologist. This report was verified electronically.
[2017-12-04] MEDS ORDERED: NORC5TAB PO (14:22)
[2017-12-04] MEDS ORDERED: DOXY100C PO (14:22)
== END 2017-12-04 15:28 | disposition home or self-care (01) ==
LOC: NEPD 09:34
DX: R10.2 Pelvic and perineal pain (principal); Q61.5 Medullary cystic kidney; N25.89 Other disorders resulting from impaired renal tubular function; F32.9 Major depressive disorder, single episode, unspecified; F41.9 Anxiety disorder, unspecified; Z87.442 Personal history of urinary calculi; Z87.891 Personal history of nicotine dependence
CPT/HCPCS: 74176; 76856; 80053; 81001; 83605; 83690; 84703; 85025; 96361; 96374; 96375; 96376; 99285; J2270; J2405; J7030

== ENCOUNTER 2018-01-23 20:13 | Emergency (ER) | payer MEDICAID ==
[~2018-01-23] VITALS: Ht 165.1 cm; Wt 72.0 kg
[~2018-01-23 20:13] MED LIST changes: +DOXY100C PO
[2018-01-23 20:18] VITALS: PULSE 148; RESP 28; TEMP 98.8; O2SAT 86
[2018-01-23 20:34] VITALS: BP 151/82; PULSE 140; RESP 30; O2SAT 98
[2018-01-23] MEDS ORDERED: SODIUM CHLOR 0.9% 1000 ML INJ 1,000 ML IV SCH (20:37)
--- NOTE | 2018-01-23 20:42 | PD ---
HPI Chief Complaint: Flank/Kidney Pain Time Seen by Provider: 20:32 Travel History International Travel<30 days: No Contact w/Intl Traveler<30days: No Traveled to known affect area: No History of Present Illness HPI This is a 37-year-old female with history of nephrocalcinosis and medullary sponge disease. She presents for evaluation of right flank pain. Symptoms started earlier today, worse over the past 2 hours, which prompted evaluation. Pain is sharp, constant, no aggravating or relieving factors. She endorses associated nausea. She reports chronic dysuria. Denies fevers or chills, chest pain or shortness of breath. She reports she has had similar pain in 100s of times in the past. She reports that she follows with a urologist in [place]. She has been seen here numerous times in the past for similar pain. She has no other complaints. PFSH Past Medical History Hx Anticoagulant Therapy: No Anemia: Yes Anxiety: Yes Depression: Yes Cancer: No Cardiovascular Problems: No Chemotherapy: No Chest Pain: Yes Cerebrovascular Accident: No Cystic Fibrosis: No Diabetes: No Diminished Hearing: No Endocrine: Yes (gestational diabities) Gastrointestinal Disorders: Yes Genitourinary: Yes (polynephrocalcinosu, UTI, MEDULARY SPONGE, DISTAL RENAL TUBULAR ACIDOSIS) Headaches: Yes Hepatitis: No Hiatal Hernia: No Hypertension: No Immune Disorder: No Implanted Vascular Access Dvce: No Kidney Stones: Yes Musculoskeletal: No Neurologic: No Psychiatric: No Reproductive: No Respiratory: No Immunizations Current: Yes Migraines: Yes Renal Failure: Yes Shingles: Yes Thyroid Disease: No Tetanus Vaccination: < 5 Years ?: Unknown LMP: 2 weeks ago : 6 Para: 4 Miscarriage: 2 : 0 Dilation and Curettage (D&C): Yes (X 1) Past Surgical History Abdominal Surgery: No AICD: No Body Medical Devices: NONE Cardiac Surgery: No Ear Surgery: No Eye Surgery: No Genitourinary Surgery: Yes (CYSTO-STENTS, LITHOTRIPSY, CYSTOSCOPY) Gynecologic Surgery: No Hysterectomy: No Joint Replacement: No Oral Surgery: No Pacemaker: No Thoracic Surgery: No Other Surgery: Yes (RENAL STENTS (HAVE BEEN REMOVED)) Social History Alcohol Use: No Tobacco Use: No (quit 2012) Substance Use: No Allergies-Medications (Allergen,Severity, Reaction): Coded Allergies: vancomycin (Verified Allergy, Severe, RASH, 4/5/18) NSAIDS (Non-Steroidal Anti-Inflamma (Verified Allergy, Intermediate, ) diclofenac (Verified Adverse Reaction, Severe, RENAL PRECAUTIONS, 01/23/18) etodolac (Verified Adverse Reaction, Severe, RENAL PRECAUTIONS, 01/23/18) flurbiprofen (Verified Adverse Reaction, Severe, RENAL PRECAUTIONS, 01/23/18 ) ibuprofen (Verified Adverse Reaction, Severe, RENAL PRECAUTIONS, 01/23/18) indomethacin (Verified Adverse Reaction, Severe, RENAL PRECAUTIONS, 01/23/18 ) ketoprofen (Verified Adverse Reaction, Severe, RENAL PRECAUTIONS, 01/23/18) ketorolac (Verified Adverse Reaction, Severe, RENAL PRECAUTIONS, 01/23/18) naproxen (Verified Adverse Reaction, Severe, RENAL PRECAUTIONS, 01/23/18) oxaprozin (Verified Adverse Reaction, Severe, RENAL PRECAUTIONS, 01/23/18) Reported Meds & Prescriptions Reported Meds & Active Scripts Active Phenergan (Promethazine HCl) 25 Mg Tablet 25 Mg PO Q6H PRN Bactrim DS (Sulfamethoxazole-Trimethoprim) 800-160 Mg Tab 1 Tab PO BID Hydrocodone-Acetaminophen 5-325 mg Tab 1 Tab PO Q6H PRN Doxycycline Hyclate 100 Mg Cap 100 Mg PO BID [place] (Hydrocodone-Acetaminophen) 5 Mg-325 Mg Tab 1 Tab PO Q6H PRN Cipro (Ciprofloxacin HCl) 500 Mg Tab 500 Mg PO BID 10 Days [place] (Hydrocodone-Acetaminophen) 5 Mg-325 Mg Tab 1 Tab PO Q6H PRN 10 Days Percocet (Oxycodone-Acetaminophen) 5-325 mg Tab 1 Tab PO Q4H PRN Reported Lamotrigine 25 Mg Tab Unknown Dose PO DAILY Zoloft (Sertraline HCl) 50 Mg Tab 50 Mg PO DAILY Ativan (Lorazepam) 0.5 Mg Tab 0.5 Mg PO HS PRN Review of Systems Except as stated in HPI: all other systems reviewed are Neg Physical Exam Narrative GENERAL: Well-developed well-nourished female who appears uncomfortable on initial examination. SKIN: Warm and dry. HEAD: Atraumatic. Normocephalic. EYES: Pupils equal and round. No scleral icterus. No injection or drainage. ENT: No nasal bleeding or discharge. Mucous membranes pink and moist. NECK: Trachea midline. No JVD. CARDIOVASCULAR: Regular rate and rhythm. No murmur appreciated. RESPIRATORY: No accessory muscle use. Clear to auscultation. Breath sounds equal bilaterally. GASTROINTESTINAL: Abdomen soft, non-tender, nondistended. Hepatic and splenic margins not palpable. Right CVA tenderness. MUSCULOSKELETAL: No obvious deformities. No clubbing. No cyanosis. No edema. NEUROLOGICAL: Awake and alert. No obvious cranial nerve deficits. Motor grossly within normal limits. Normal speech. Data Data Last Documented VS Vital Signs Date Time Temp Pulse Resp B/P (MAP) Pulse Ox O2 Delivery O2 Flow Rate FiO2 01/23/18 22:36 73 18 112/73 (86) 99 Room Air 01/23/18 20:18 98.8 Orders Orders Complete Blood Count With Diff (01/23/18 20:37) Comprehensive Metabolic Panel (01/23/18 20:37) Urinalysis - C+S If Indicated (01/23/18 20:37) Iv Access Insert/Monitor (01/23/18 20:37) Ecg Monitoring (01/23/18 20:37) Morphine Inj (Morphine Inj) (01/23/18 20:45) Ondansetron Inj (Zofran Inj) (01/23/18 20:45) Sodium Chlor 0.9% 1000 Ml Inj (Ns 1000 M (01/23/18 20:37) Electrocardiogram (01/23/18 20:37) Ed Urine Pregnancytest Poc (01/23/18 20:37) Us Kidney/Renal/Bladder (01/23/18 ) Ketorolac Inj (Toradol Inj) (01/23/18 21:00) Urine Culture (01/23/18 21:54) Oxycodone-Acetamin 5-325 Mg (Percocet (01/23/18 22:45) Sulfamet-Trimeth Ds 800-160 Mg (Bactrim (01/23/18 22:45) Labs Laboratory Tests Test 01/23/18 20:45 01/23/18 21:54 White Blood Count 10.0 TH/MM3 Red Blood Count 4.93 MIL/MM3 Hemoglobin 14.6 GM/DL Hematocrit 41.4 % Mean Corpuscular Volume 84.0 FL Mean Corpuscular Hemoglobin 29.7 PG Mean Corpuscular Hemoglobin Concent 35.3 % Red Cell Distribution Width 13.8 % Platelet Count 259 TH/MM3 Mean Platelet Volume 7.9 FL Neutrophils (%) (Auto) 60.2 % Lymphocytes (%) (Auto) 30.2 % Monocytes (%) (Auto) 8.3 % Eosinophils (%) (Auto) 0.7 % Basophils (%) (Auto) 0.6 % Neutrophils # (Auto) 6.0 TH/MM3 Lymphocytes # (Auto) 3.0 TH/MM3 Monocytes # (Auto) 0.8 TH/MM3 Eosinophils # (Auto) 0.1 TH/MM3 Basophils # (Auto) 0.1 TH/MM3 CBC Comment DIFF FINAL Differential Comment Blood Urea Nitrogen 9 MG/DL Creatinine 0.87 MG/DL Random Glucose 95 MG/DL Total Protein 8.6 GM/DL Albumin 4.2 GM/DL Calcium Level 9.1 MG/DL Alkaline Phosphatase 66 U/L Aspartate Amino Transf (AST/SGOT) 16 U/L Alanine Aminotransferase (ALT/SGPT) 17 U/L Total Bilirubin 0.4 MG/DL Sodium Level 139 MEQ/L Potassium Level 3.8 MEQ/L Chloride Level 107 MEQ/L Carbon Dioxide Level 20.5 MEQ/L Anion Gap 12 MEQ/L Estimat Glomerular Filtration Rate 74 ML/MIN Urine Color YELLOW Urine Turbidity CLEAR Urine pH 6.5 Urine Specific [place] 1.014 Urine Protein NEG mg/dL Urine Glucose (UA) NEG mg/dL Urine Ketones NEG mg/dL Urine Occult Blood NEG Urine Nitrite NEG Urine Bilirubin NEG Urine Urobilinogen LESS THAN 2.0 MG/DL Urine Leukocyte Esterase SMALL Urine RBC 1 /hpf Urine WBC 12 /hpf Urine Squamous Epithelial Cells <1 /hpf Urine Mucus FEW /lpf Microscopic Urinalysis Comment CULTURE INDICATED MDM Medical Decision Making Medical Screen Exam Complete: Yes Emergency Medical Condition: Yes Medical Record Reviewed: Yes Differential Diagnosis Chronic flank pain, ureteral stone, nephrocalcinosis, pyelonephritis Narrative Course The patient was placed on ECG monitoring, 12-lead EKG was obtained, she was given IV fluids, Zofran, morphine. Basic lab work has been ordered, urinalysis have been ordered. She has been seen here numerous times in the past and has had several CAT scans of her abdomen and pelvis and her current pain is consistent to previous visits. A renal ultrasound will be ordered to assess for hydronephrosis. Renal ultrasound reveals CONCLUSION: 1. Medullary nephrocalcinosis. No acute findings. Urinalysis reveals some pyuria. Pending culture results she will be started on Bactrim. Her pain is improved but still residual. Her heart rate normalized. She will be discharged with a short course of Lortab as well as Phenergan, Bactrim. Recommended follow-up with her urologist. Diagnosis Primary Impression: Flank pain Additional Impression: Pyuria Referrals: Urologist Additional Instructions: Medication as prescribed, stay well hydrated, follow-up with your urologist, return for any acutely new or worsening symptoms. Med/Other Pt SpecificInfo: Prescription(s) given Scripts Promethazine (Phenergan) 25 Mg Tablet 25 MG PO Q6H Y for NAUSEA OR VOMITING, #20 TAB 0 Refills Prov: Kristian Oseguera MD 01/23/18 Sulfamethoxazole-Trimethoprim (Bactrim DS) 800-160 Mg Tab 1 TAB PO BID for Infection, #14 TAB 0 Refills Prov: Kristian Oseguera MD 01/23/18 Hydrocodone-Acetaminophen (Hydrocodone-Acetaminophen) 5-325 mg Tab 1 TAB PO Q6H Y for PAIN, #12 TAB 0 Refills Prov: Kristian Oseguera MD 01/23/18 Disposition: 01 DISCHARGE HOME Condition: Stable Yoni Agrawal Jan 23, 2018 20:42
[2018-01-23] MEDS ORDERED: MORPHINE SULFATE 4 MG/ML INJ IV PUSH ONE (20:45)
[2018-01-23] MEDS ORDERED: ONDANSETRON HCL 4 MG/2 ML VIAL IVP ONE (20:45)
[2018-01-23] MEDS ORDERED: KETOROLAC TROMETHAMINE 30 MG/ML (IVP) VIAL IV PUSH ONE (21:00)
[2018-01-23 21:14] LABS: BASOPHIL # 0.1 TH/MM3 (0-0.2); BASOPHIL % 0.6 % (0.0-2.0); EOSINOPHIL # 0.1 TH/MM3 (0-0.4); EOSINOPHIL % 0.7 % (0.0-4.0); HEMATOCRIT 41.4 % (35.0-46.0); HEMOGLOBIN 14.6 GM/DL (11.6-15.3); LYMPH % 30.2 % (9.0-44.0); MEAN CORPUSCULAR HEMOGLOBIN 29.7 PG (27.0-34.0); MEAN CORPUSCULAR HGB CONC 35.3 % (32.0-36.0); MEAN PLATELET VOLUME 7.9 FL (7.0-11.0); MONO % 8.3 % (0.0-8.0); MONOCYTE # 0.8 TH/MM3 (0-0.9); NEUT % 60.2 % (16.0-70.0); PLATELET COUNT 259 TH/MM3 (150-450); RED BLOOD COUNT 4.93 MIL/MM3 (4.00-5.30); RED CELL DISTRIBUTION WIDTH 13.8 % (11.6-17.2)
[2018-01-23 21:34] LABS: ALBUMIN 4.2 GM/DL (3.4-5.0); AST (GOT) 16 U/L (15-37); BICARBONATE 20.5 MEQ/L (21.0-32.0); BLOOD UREA NITROGEN 9 MG/DL (7-18); CALCIUM 9.1 MG/DL (8.5-10.1); CHLORIDE 107 MEQ/L (98-107); CREATININE 0.87 MG/DL (0.50-1.00); GLOMERULAR FILTRATION RATE 74 ML/MIN (>89); GLUCOSE,RANDOM 95 MG/DL (74-106); SODIUM (NA) 139 MEQ/L (136-145)
[2018-01-23 21:35] LABS: ALT (GPT) 17 U/L (10-53)
[2018-01-23 21:37] LABS: ALKALINE PHOSPHATASE 66 U/L (45-117); TOTAL BILIRUBIN ADULT 0.4 MG/DL (0.2-1.0); TOTAL PROTEIN 8.6 GM/DL (6.4-8.2)
[2018-01-23 21:53] VITALS: BP 116/56; PULSE 75; RESP 20; O2SAT 99
[2018-01-23 22:26] LABS: BILIRUBIN, URINE NEG (NEG); BLOOD, URINE NEG (NEG); GLUCOSE,URINE NEG (NEG); KETONE, URINE NEG (NEG); MUCUS URINE FEW /lpf (OCC); NITRITE,URINE NEG (NEG); PH, URINE 6.5 (5.0-8.5); SQUAMOUS EPITHELIAL CELL URINE <1 /hpf (0-5); URINE COLOR YELLOW (YELLW/STRAW); URINE LEUKOCYTE ESTERASE SMALL (NEG)
[2018-01-23 22:36] VITALS: BP 112/73; PULSE 73; RESP 18; O2SAT 99
--- NOTE | 2018-01-23 22:36 | RADRPT ---
EXAM DATE/TIME: 01/23/2018 22:32 [facility] COMPARISON: No previous studies available for comparison. INDICATIONS : Bilateral flank pain MEDICAL HISTORY : Renal calculi. Medullary sponge kidneys. Renal tubular acidosis. Shingles. SURGICAL HISTORY : D&C. Cystoscopy. Renal Stents. ENCOUNTER: Subsequent ACUITY: 2 months PAIN SCORE: 9/10 LOCATION: Bilateral flank MEASUREMENTS: RIGHT KIDNEY: 11.9 x 5.3 x 4.1 cm LEFT KIDNEY: 12.0 x 5.4 x 5.3 cm FINDINGS: There is medullary nephrocalcinosis in the kidneys with some cortical thinning. No hydronephrosis. Bl adder unremarkable. CONCLUSION: 1. Medullary nephrocalcinosis. No acute findings. Mike Joe MD on January 23, 2018 at 22:33 Board Certified Radiologist. This report was verified electronically.
[2018-01-23] MEDS ORDERED: BACT800T5 PO (22:44)
[2018-01-23] MEDS ORDERED: HYDR-3516 PO (22:44)
[2018-01-23] MEDS ORDERED: PROM25TA10 PO (22:44)
[2018-01-23] MEDS ORDERED: SULFAMETHOXAZOLE-TRIMETHOPRIM DS 800-160 MG TAB PO ONE (22:45)
[2018-01-23] MEDS ORDERED: oxyCODONE/ACETAMINOPHEN 5 MG/325 MG TAB PO ONE (22:45)
[2018-01-23 23:35] VITALS: BP 109/70
--- NOTE | 2018-01-24 16:17 | EKG ---
Date Performed: 01/23/2018 Time Performed: 21:46:50 PTAGE: 37 years EKG: Sinus rhythm WITH SINUS ARRHYTHMIA LOW QRS VOLTAGE IN PRECORDIAL LEADS NONSPECIFIC ST & T-WAVE ABNORMALITY BORDER LINE ECG PREVIOUS TRACING : 07/30/2015 21.58 No significant change from previous tracing noted. DOCTOR: Gianluca French Interpretating Date/Time 01/24/2018 16:16:36
== END 2018-01-23 23:45 | disposition home or self-care (01) ==
LOC: NEPC 20:13
DX: N39.0 Urinary tract infection, site not specified (principal); E83.59 Other disorders of calcium metabolism; N29 Other disorders of kidney and ureter in diseases classified elsewhere; R94.31 Abnormal electrocardiogram [ECG] [EKG]; Q61.5 Medullary cystic kidney; F41.9 Anxiety disorder, unspecified; F32.9 Major depressive disorder, single episode, unspecified; Z87.442 Personal history of urinary calculi; Z87.891 Personal history of nicotine dependence
CPT/HCPCS: 76775; 80053; 81001; 84703; 85025; 87086; 93005; 96361; 96374; 96375; 99285; J1885; J2270; J2405; J7030

== ENCOUNTER 2018-03-09 23:11 | Emergency (ER) | payer MEDICAID ==
[~2018-03-09 23:11] MED LIST changes: +BACT800T5 PO; +HYDR-3516 PO; +PROM25TA10 PO
[2018-03-09 23:36] VITALS: BP 150/83; PULSE 96; RESP 16; TEMP 99.4; O2SAT 98
[2018-03-10] MEDS ORDERED: diphenhydrAMINE HCL 50 MG/ML VIAL IV PUSH ONE
[2018-03-10] MEDS ORDERED: PROCHLORPERAZINE INJ 10 MG/2 ML VIAL IM ONE
--- NOTE | 2018-03-10 00:07 | PD ---
HPI Chief Complaint: Flank/Kidney Pain Time Seen by Provider: 23:45 Travel History International Travel<30 days: No Contact w/Intl Traveler<30days: No Traveled to known affect area: No History of Present Illness HPI 37-year-old white female presents emergency department with complaints of right flank pain associated with kidney stones. She states that she has had numerous kidney stones in the past. She has nephrolithiasis and a medullary sponge kidney. She is followed by a urologist in [place]. Her last visit was approximately 8 months ago. She is followed through the [facility]. She allegedly is getting set up with a local urologist. She comes in again with complaints of right flank pain. She has had associated nausea and vomiting. She states the pain is moderate. She has taken 10 mg of hydrocodone and a alprazolam for coming in without relief. Symptoms are moderate. Positive associated increasing urinary frequency, dysuria and hematuria. No fever chills. PFSH Past Medical History Hx Anticoagulant Therapy: No Anemia: Yes Anxiety: Yes Depression: Yes Cancer: No Cardiovascular Problems: No Chemotherapy: No Chest Pain: Yes Cerebrovascular Accident: No Cystic Fibrosis: No Diabetes: No Patient Takes Glucophage: No Diminished Hearing: No Endocrine: Yes (gestational diabities) Gastrointestinal Disorders: Yes Genitourinary: Yes (polynephrocalcinosu, UTI, MEDULARY SPONGE, DISTAL RENAL TUBULAR ACIDOSIS) Headaches: Yes Hepatitis: No Hiatal Hernia: No Hypertension: No Immune Disorder: No Implanted Vascular Access Dvce: No Kidney Stones: Yes Musculoskeletal: No Neurologic: No Psychiatric: No Reproductive: No Respiratory: No Immunizations Current: Yes Migraines: Yes Renal Failure: Yes Shingles: Yes Thyroid Disease: No ?: Not LMP: 4/20 : 6 Para: 4 Miscarriage: 2 : 0 Dilation and Curettage (D&C): Yes (X 1) Past Surgical History Abdominal Surgery: No AICD: No Body Medical Devices: NONE Cardiac Surgery: No Ear Surgery: No Eye Surgery: No Genitourinary Surgery: Yes (CYSTO-STENTS, LITHOTRIPSY, CYSTOSCOPY) Gynecologic Surgery: No Hysterectomy: No Joint Replacement: No Oral Surgery: No Pacemaker: No Thoracic Surgery: No Other Surgery: Yes (RENAL STENTS (HAVE BEEN REMOVED)) Social History Alcohol Use: No Tobacco Use: No (quit 2012) Substance Use: No Allergies-Medications (Allergen,Severity, Reaction): Coded Allergies: vancomycin (Verified Allergy, Severe, RASH, 03/09/18) NSAIDS (Non-Steroidal Anti-Inflamma (Verified Allergy, Intermediate, ) diclofenac (Verified Adverse Reaction, Severe, RENAL PRECAUTIONS, 03/09/18) etodolac (Verified Adverse Reaction, Severe, RENAL PRECAUTIONS, 03/09/18) flurbiprofen (Verified Adverse Reaction, Severe, RENAL PRECAUTIONS, ) ibuprofen (Verified Adverse Reaction, Severe, RENAL PRECAUTIONS, 03/09/18) indomethacin (Verified Adverse Reaction, Severe, RENAL PRECAUTIONS, ) ketoprofen (Verified Adverse Reaction, Severe, RENAL PRECAUTIONS, 03/09/18) ketorolac (Verified Adverse Reaction, Severe, RENAL PRECAUTIONS, 03/09/18) naproxen (Verified Adverse Reaction, Severe, RENAL PRECAUTIONS, 03/09/18) oxaprozin (Verified Adverse Reaction, Severe, RENAL PRECAUTIONS, 03/09/18) Reported Meds & Prescriptions Reported Meds & Active Scripts Active Zofran Odt (Ondansetron Odt) 8 Mg Tab 8 Mg SL Q8H PRN Percocet (Oxycodone-Acetaminophen) 5-325 mg Tab 1-2 Tab PO Q6H PRN Phenergan (Promethazine HCl) 25 Mg Tablet 25 Mg PO Q6H PRN Bactrim DS (Sulfamethoxazole-Trimethoprim) 800-160 Mg Tab 1 Tab PO BID Hydrocodone-Acetaminophen 5-325 mg Tab 1 Tab PO Q6H PRN Doxycycline Hyclate 100 Mg Cap 100 Mg PO BID [place] (Hydrocodone-Acetaminophen) 5 Mg-325 Mg Tab 1 Tab PO Q6H PRN Cipro (Ciprofloxacin HCl) 500 Mg Tab 500 Mg PO BID 10 Days [place] (Hydrocodone-Acetaminophen) 5 Mg-325 Mg Tab 1 Tab PO Q6H PRN 10 Days Percocet (Oxycodone-Acetaminophen) 5-325 mg Tab 1 Tab PO Q4H PRN Reported Lamotrigine 25 Mg Tab Unknown Dose PO DAILY Zoloft (Sertraline HCl) 50 Mg Tab 50 Mg PO DAILY Ativan (Lorazepam) 0.5 Mg Tab 0.5 Mg PO HS PRN Review of Systems General / Constitutional: No: Fever Eyes: No: Visual changes HENT: No: Headaches Cardiovascular: No: Chest Pain or Discomfort Respiratory: No: Shortness of Breath Gastrointestinal: Positive: Nausea, Vomiting, No: Abdominal Pain Genitourinary: Positive: Urgency, Frequency, Dysuria, Hematuria Musculoskeletal: Positive: Pain (Right flank pain) Skin: No Rash Neurologic: No: Weakness Psychiatric: No: Depression Endocrine: No: Polydipsia Hematologic/Lymphatic: No: Easy Bruising Physical Exam Narrative GENERAL: Well-developed, well-nourished in no apparent distress. Nontoxic appearing. HEAD: Normocephalic, atraumatic. EYES: Pupils equal round and reactive. Extraocular motions intact. No scleral icterus. No injection or drainage. ENT: Nose clear. Throat without erythema, tonsillar hypertrophy or exudate. Uvula midline. Airway patent. NECK: Trachea midline. Supple, nontender, moves head freely. No central bony tenderness or spasm. CARDIOVASCULAR: Regular rate and rhythm without murmurs, gallops, or rubs. RESPIRATORY: Clear to auscultation. Breath sounds equal bilaterally. No wheezes , rales, or rhonchi. GASTROINTESTINAL: Abdomen soft, non-tender, nondistended. No hepato-splenomegaly , or palpable masses. No guarding. EXTREMITIES: No clubbing, cyanosis, or edema. No joint tenderness. BACK: Nontender without deformity. No flank tenderness. NEUROLOGICAL: Awake, alert and oriented x 3 .Cranial nerves grossly intact. Motor and sensory grossly within normal limits. Normal speech. Data Data Last Documented VS Vital Signs Date Time Temp Pulse Resp B/P (MAP) Pulse Ox O2 Delivery O2 Flow Rate FiO2 03/10/18 03:07 18 03/10/18 00:15 81 130/79 (96) 100 Room Air 03/09/18 23:36 99.4 Orders Orders Complete Blood Count With Diff (03/09/18 23:51) Basic Metabolic Panel (Bmp) (03/09/18 23:51) Urinalysis - C+S If Indicated (03/09/18 23:51) Sodium Chlor 0.9% 1000 Ml Inj (Ns 1000 M (03/10/18 00:00) Diphenhydramine Inj (Benadryl Inj) (03/10/18 00:00) Prochlorperazine Inj (Compazine Inj) (03/10/18 00:00) Morphine Inj (Morphine Inj) (03/10/18 00:00) Sodium Chlor 0.9% 1000 Ml Inj (Ns 1000 M (03/10/18 02:15) Morphine Inj (Morphine Inj) (03/10/18 02:15) Ed Discharge Order (03/10/18 03:09) Labs Laboratory Tests Test 03/10/18 00:00 White Blood Count 7.3 TH/MM3 Red Blood Count 5.26 MIL/MM3 Hemoglobin 14.8 GM/DL Hematocrit 43.2 % Mean Corpuscular Volume 82.2 FL Mean Corpuscular Hemoglobin 28.2 PG Mean Corpuscular Hemoglobin Concent 34.3 % Red Cell Distribution Width 14.0 % Platelet Count 294 TH/MM3 Mean Platelet Volume 7.6 FL Neutrophils (%) (Auto) 62.3 % Lymphocytes (%) (Auto) 28.1 % Monocytes (%) (Auto) 7.6 % Eosinophils (%) (Auto) 1.1 % Basophils (%) (Auto) 0.9 % Neutrophils # (Auto) 4.6 TH/MM3 Lymphocytes # (Auto) 2.1 TH/MM3 Monocytes # (Auto) 0.6 TH/MM3 Eosinophils # (Auto) 0.1 TH/MM3 Basophils # (Auto) 0.1 TH/MM3 CBC Comment DIFF FINAL Differential Comment Urine Color LIGHT-YELLOW Urine Turbidity CLEAR Urine pH 7.5 Urine Specific [place] 1.009 Urine Protein NEG mg/dL Urine Glucose (UA) NEG mg/dL Urine Ketones NEG mg/dL Urine Occult Blood MOD Urine Nitrite NEG Urine Bilirubin NEG Urine Urobilinogen LESS THAN 2.0 MG/DL Urine Leukocyte Esterase TRACE Urine RBC 165 /hpf Urine WBC 2 /hpf Urine Squamous Epithelial Cells 2 /hpf Microscopic Urinalysis Comment CULT NOT INDICATED Blood Urea Nitrogen 11 MG/DL Creatinine 0.82 MG/DL Random Glucose 92 MG/DL Calcium Level 9.2 MG/DL Sodium Level 140 MEQ/L Potassium Level 4.0 MEQ/L Chloride Level 105 MEQ/L Carbon Dioxide Level 25.2 MEQ/L Anion Gap 10 MEQ/L Estimat Glomerular Filtration Rate 79 ML/MIN [facility] Medical Decision Making Medical Screen Exam Complete: Yes Emergency Medical Condition: Yes Medical Record Reviewed: Yes Differential Diagnosis Differential diagnosis: Pyelonephritis, UTI, nephrolithiasis, ureterolithiasis Narrative Course IV access is obtained. Routine laboratory tests and for analysis. Patient is given liter bolus normal saline, Benadryl 50 mg IV, Compazine 10 mg IV, morphine 6 mg IV. The patient is given a second dose of morphine 6 mg IV and a second liter of fluid. She states that her pain had been much improved but she had a recurrence. Patient is advised that we will attempt a second round of medication but if she is not sufficiently controlled I would recommend admission to the hospital. Patient verbally states understanding. At 0310 patient is reexamined. She states that her pain is down to 3/10. She is offered admission to the hospital which she declines. She states that she would like to try this at home. She is given a prescription for Percocet and Zofran. She will follow-up with her doctor in the next 1-2 days for recheck. She is instructed to return if symptoms worsen. Diagnosis Primary Impression: Flank pain Additional Impressions: Medullary sponge kidney Nephrocalcinosis Patient Instructions: Narcotic given in the ED, General Instructions Additional Instructions: Rest. Force fluids. Zofran and Percocet. Follow-up with your doctor in the next 1-2 days. Follow-up with your urologist in the next 3-7 days. Return to the ER if any problems. Med/Other Pt SpecificInfo: Prescription(s) given Scripts Ondansetron Odt (Zofran Odt) 8 Mg Tab 8 MG SL Q8H Y for NAUSEA OR VOMITING, #6 TAB 0 Refills Prov: Nathaniel Beltran MD 03/10/18 Oxycodone-Acetaminophen (Percocet) 5-325 mg Tab 1-2 TAB PO Q6H Y for PAIN, #12 TAB 0 Refills Prov: Nathaniel Beltran MD 03/10/18 Disposition: 01 DISCHARGE HOME Condition: Stable Mike Gustafson March 10, 2018 00:07
[2018-03-10 00:15] VITALS: BP 130/79; PULSE 81; RESP 18; O2SAT 100
[2018-03-10 00:17] LABS: AUTOMATED NEUTROPHIL # 4.6 TH/MM3 (1.8-7.7); BASOPHIL # 0.1 TH/MM3 (0-0.2); BASOPHIL % 0.9 % (0.0-2.0); EOSINOPHIL # 0.1 TH/MM3 (0-0.4); EOSINOPHIL % 1.1 % (0.0-4.0); HEMATOCRIT 43.2 % (35.0-46.0); HEMOGLOBIN 14.8 GM/DL (11.6-15.3); LYMPH % 28.1 % (9.0-44.0); LYMPHOCYTE # 2.1 TH/MM3 (1.0-4.8); MEAN CELL VOLUME 82.2 FL (80.0-100.0); MEAN CORPUSCULAR HEMOGLOBIN 28.2 PG (27.0-34.0); MEAN CORPUSCULAR HGB CONC 34.3 % (32.0-36.0); MEAN PLATELET VOLUME 7.6 FL (7.0-11.0); MONO % 7.6 % (0.0-8.0); MONOCYTE # 0.6 TH/MM3 (0-0.9); NEUT % 62.3 % (16.0-70.0); PLATELET COUNT 294 TH/MM3 (150-450); RED BLOOD COUNT 5.26 MIL/MM3 (4.00-5.30); WHITE BLOOD COUNT 7.3 TH/MM3 (4.0-11.0)
[2018-03-10 00:25] LABS: BILIRUBIN, URINE NEG (NEG); BLOOD, URINE MOD (NEG); GLUCOSE,URINE NEG (NEG); KETONE, URINE NEG (NEG); NITRITE,URINE NEG (NEG); PH, URINE 7.5 (5.0-8.5); SQUAMOUS EPITHELIAL CELL URINE 2 /hpf (0-5); URINE COLOR LIGHT-YELLOW (YELLW/STRAW); URINE LEUKOCYTE ESTERASE TRACE (NEG)
[2018-03-10 00:34] LABS: BICARBONATE 25.2 MEQ/L (21.0-32.0); CALCIUM 9.2 MG/DL (8.5-10.1); CREATININE 0.82 MG/DL (0.50-1.00)
[2018-03-10] MEDS ORDERED: MORPHINE SULFATE 8 MG/ML INJ IV PUSH ONE ×2 (02:15)
[2018-03-10] MEDS ORDERED: SODIUM CHLOR 0.9% 1000 ML INJ 1,000 ML IV ONE ×2 (02:15)
[2018-03-10 03:07] VITALS: RESP 18
[2018-03-10] MEDS ORDERED: PERC5TAB12 PO (03:08)
[2018-03-10] MEDS ORDERED: ZOFR8TAB4 SL (03:08)
[2018-03-10 03:13] VITALS: BP 101/59
== END 2018-03-10 03:25 | disposition home or self-care (01) ==
LOC: NEPD 23:11
DX: Q61.5 Medullary cystic kidney (principal); N29 Other disorders of kidney and ureter in diseases classified elsewhere; E83.59 Other disorders of calcium metabolism; N25.89 Other disorders resulting from impaired renal tubular function; Z87.442 Personal history of urinary calculi
CPT/HCPCS: 80048; 81001; 85025; 96361; 96372; 96374; 96375; 96376; 99284; J0780; J1200; J2270; J7030

== ENCOUNTER 2018-03-18 16:48 | Emergency (ER) | payer MEDICAID ==
[~2018-03-18] VITALS: Ht 175.3 cm; Wt 66.0 kg
[~2018-03-18 16:48] MED LIST changes: +ZOFR8TAB4 SL
[2018-03-18 16:59] VITALS: BP 141/88; PULSE 104; RESP 17; TEMP 97.8; O2SAT 99
[2018-03-18 17:33] LABS: BACTERIA, URINE RARE /hpf; BILIRUBIN, URINE NEG (NEG); BLOOD, URINE LARGE (NEG); GLUCOSE,URINE NEG (NEG); KETONE, URINE NEG (NEG); MUCUS URINE FEW /lpf (OCC); NITRITE,URINE NEG (NEG); PH, URINE 7.5 (5.0-8.5); SQUAMOUS EPITHELIAL CELL URINE 2 /hpf (0-5); URINE COLOR YELLOW (YELLW/STRAW); URINE LEUKOCYTE ESTERASE SMALL (NEG)
--- NOTE | 2018-03-18 18:12 | PD ---
HPI Chief Complaint: Flank/Kidney Pain Time Seen by Provider: 18:01 Travel History International Travel<30 days: No Contact w/Intl Traveler<30days: No Traveled to known affect area: No History of Present Illness HPI 37yo F with PMH of nephrocalcinosis and follows with urologist from [facility] in [place] here with left flank pain since yesterday. Associated with dysuria , hematuria, nausea and vomiting. Pt has been taking hydrocodone with acetaminophen so does not know if she is having fever. Said it feels different from her usual pain. Pain is sharp, nonradiating and constant. Standing in a certain position helps with pain. Denies any chest pain, sob, vaginal bleeding or discharge. PFSH Past Medical History Hx Anticoagulant Therapy: No Anemia: Yes Anxiety: Yes Depression: Yes Cancer: No Cardiovascular Problems: No Chemotherapy: No Chest Pain: Yes Cerebrovascular Accident: No Cystic Fibrosis: No Diabetes: No Diminished Hearing: No Endocrine: Yes (gestational diabities) Gastrointestinal Disorders: Yes Genitourinary: Yes (polynephrocalcinosu, UTI, MEDULARY SPONGE, DISTAL RENAL TUBULAR ACIDOSIS) Headaches: Yes Hepatitis: No Hiatal Hernia: No Hypertension: No Immune Disorder: No Implanted Vascular Access Dvce: No Kidney Stones: Yes Musculoskeletal: No Neurologic: No Psychiatric: No Reproductive: No Respiratory: No Immunizations Current: Yes Migraines: Yes Renal Failure: Yes Shingles: Yes Thyroid Disease: No ?: Not LMP: 01/2018 : 6 Para: 4 Miscarriage: 2 : 0 Dilation and Curettage (D&C): Yes (X 1) Past Surgical History Abdominal Surgery: No AICD: No Body Medical Devices: NONE Cardiac Surgery: No Ear Surgery: No Eye Surgery: No Genitourinary Surgery: Yes (CYSTO-STENTS, LITHOTRIPSY, CYSTOSCOPY) Gynecologic Surgery: No Hysterectomy: No Joint Replacement: No Oral Surgery: No Pacemaker: No Thoracic Surgery: No Other Surgery: Yes (RENAL STENTS (HAVE BEEN REMOVED)) Social History Alcohol Use: No Tobacco Use: No (quit 2012) Substance Use: No Allergies-Medications (Allergen,Severity, Reaction): Coded Allergies: vancomycin (Verified Allergy, Severe, RASH, 03/18/18) NSAIDS (Non-Steroidal Anti-Inflamma (Verified Allergy, Intermediate, ) diclofenac (Verified Adverse Reaction, Severe, RENAL PRECAUTIONS, 03/18/18) etodolac (Verified Adverse Reaction, Severe, RENAL PRECAUTIONS, 03/18/18) flurbiprofen (Verified Adverse Reaction, Severe, RENAL PRECAUTIONS, ) ibuprofen (Verified Adverse Reaction, Severe, RENAL PRECAUTIONS, 03/18/18) indomethacin (Verified Adverse Reaction, Severe, RENAL PRECAUTIONS, ) ketoprofen (Verified Adverse Reaction, Severe, RENAL PRECAUTIONS, 03/18/18) ketorolac (Verified Adverse Reaction, Severe, RENAL PRECAUTIONS, 03/18/18) naproxen (Verified Adverse Reaction, Severe, RENAL PRECAUTIONS, 03/18/18) oxaprozin (Verified Adverse Reaction, Severe, RENAL PRECAUTIONS, 03/18/18) Reported Meds & Prescriptions Reported Meds & Active Scripts Active Zofran Odt (Ondansetron Odt) 8 Mg Tab 8 Mg SL Q8H PRN [place] (Hydrocodone-Acetaminophen) 5 Mg-325 Mg Tab 1 Tab PO Q6H PRN 10 Days Reported Zoloft (Sertraline HCl) 50 Mg Tab 50 Mg PO DAILY Ativan (Lorazepam) 0.5 Mg Tab 0.5 Mg PO HS PRN Review of Systems Except as stated in HPI: all other systems reviewed are Neg Physical Exam Narrative GENERAL: 37yo F in moderate distress. SKIN: Focused skin assessment warm/dry. HEAD: Atraumatic. Normocephalic. EYES: Pupils equal and round. No scleral icterus. No injection or drainage. ENT: No nasal bleeding or discharge. Mucous membranes pink and moist. NECK: Trachea midline. No JVD. CARDIOVASCULAR: Regular rate and rhythm. No murmur appreciated. RESPIRATORY: No accessory muscle use. Clear to auscultation. Breath sounds equal bilaterally. GASTROINTESTINAL: Abdomen soft, non-tender, nondistended. No rebound tenderness or guarding. BACK: +CVA tenderness left > right. MUSCULOSKELETAL: No obvious deformities. No clubbing. No cyanosis. No edema. NEUROLOGICAL: Awake and alert. No obvious cranial nerve deficits. Motor grossly within normal limits. Normal speech. PSYCHIATRIC: Appropriate mood and affect; insight and judgment normal. Data Data Last Documented VS Vital Signs Date Time Temp Pulse Resp B/P (MAP) Pulse Ox O2 Delivery O2 Flow Rate FiO2 03/18/18 16:59 97.8 104 17 141/88 (105) 99 Orders Orders Urinalysis - C+S If Indicated (03/18/18 17:02) Ed Urine Pregnancytest Poc (03/18/18 17:02) Urine Culture (03/18/18 17:09) Complete Blood Count With Diff (03/18/18 18:07) Basic Metabolic Panel (Bmp) (03/18/18 18:07) Lipase (03/18/18 18:07) Morphine Inj (Morphine Inj) (03/18/18 18:15) Ondansetron Odt (Zofran Odt) (03/18/18 18:15) Sodium Chlor 0.9% 1000 Ml Inj (Ns 1000 M (03/18/18 18:15) Ceftriaxone Inj (Rocephin Inj) (03/18/18 18:15) Us Kidney/Renal/Bladder (03/18/18 ) Beta Hcg (Quant/Titer) (03/18/18 18:30) Morphine Inj (Morphine Inj) (03/18/18 20:30) Potassium Chloride (Kcl) (03/18/18 20:30) Labs Laboratory Tests Test 03/18/18 17:09 03/18/18 18:30 Urine Color YELLOW Urine Turbidity CLEAR Urine pH 7.5 Urine Specific [place] 1.010 Urine Protein NEG mg/dL Urine Glucose (UA) NEG mg/dL Urine Ketones NEG mg/dL Urine Occult Blood LARGE Urine Nitrite NEG Urine Bilirubin NEG Urine Urobilinogen LESS THAN 2.0 MG/DL Urine Leukocyte Esterase SMALL Urine RBC 47 /hpf Urine WBC 11 /hpf Urine Squamous Epithelial Cells 2 /hpf Urine Bacteria RARE /hpf Urine Mucus FEW /lpf Microscopic Urinalysis Comment CULTURE INDICATED White Blood Count 7.4 TH/MM3 Red Blood Count 4.84 MIL/MM3 Hemoglobin 13.4 GM/DL Hematocrit 39.8 % Mean Corpuscular Volume 82.3 FL Mean Corpuscular Hemoglobin 27.8 PG Mean Corpuscular Hemoglobin Concent 33.8 % Red Cell Distribution Width 14.6 % Platelet Count 262 TH/MM3 Mean Platelet Volume 8.4 FL Neutrophils (%) (Auto) 66.2 % Lymphocytes (%) (Auto) 22.8 % Monocytes (%) (Auto) 8.2 % Eosinophils (%) (Auto) 1.8 % Basophils (%) (Auto) 1.0 % Neutrophils # (Auto) 4.9 TH/MM3 Lymphocytes # (Auto) 1.7 TH/MM3 Monocytes # (Auto) 0.6 TH/MM3 Eosinophils # (Auto) 0.1 TH/MM3 Basophils # (Auto) 0.1 TH/MM3 CBC Comment DIFF FINAL Differential Comment Blood Urea Nitrogen 9 MG/DL Creatinine 0.86 MG/DL Random Glucose 65 MG/DL Calcium Level 9.2 MG/DL Sodium Level 142 MEQ/L Potassium Level 3.2 MEQ/L Chloride Level 107 MEQ/L Carbon Dioxide Level 26.4 MEQ/L Anion Gap 9 MEQ/L Estimat Glomerular Filtration Rate 75 ML/MIN Lipase 258 U/L Human Chorionic Gonadotropin, Quant 342 MIU/ML MDM Medical Decision Making Medical Screen Exam Complete: Yes Emergency Medical Condition: Yes Differential Diagnosis Nephrolithiasis vs. obstructive uropathy vs. pyelonephritis Narrative Course 37yo F with left back pain. Pt has no abdominal pain. Urine positive but pt is requesting morphine and understands the risks of morphine to her fetus. She was given two doses here and pain has been controlled. Labs reviewed, no leukocytosis. H/H normal. bHCG is elevated at 342. Pt does not have any abdominal pain and instructed to follow up with OBGYN as outpatient. Mild hypokalemia at 3.2, replaced orally. Mild hypoglycemia at 65, pt given juice. Normal lipase. UA showed WBC 11. RBC 47. Pt given ceftriaxone. Pt reevaluated at bedside and is tolerating PO and pain has been controlled. 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 Pt has her own urologist to follow up with. She is nontoxic appearing. Return precautions given. Diagnosis Primary Impression: Pyelonephritis Patient Instructions: General Instructions Departure Forms: Tests/Procedures Additional Instructions: Please follow up with your urologist and OBGYN as outpatient. Return to the ED if symptoms worsen. Med/Other Pt SpecificInfo: Prescription(s) given Scripts Acetaminophen (Tylenol) 325 Mg Tab 650 MG PO Q6H Y for PAIN SCALE 1 TO 4, #20 TAB 0 Refills Prov: AlciraShannan DO 03/18/18 Cephalexin (Keflex) 500 Mg Cap 500 MG PO Q12H for Infection for 7 Days, #14 CAP 0 Refills Prov: AlciraShannan DO 03/18/18 Disposition: 01 DISCHARGE HOME Condition: Stable Shannan Eli DO March 18, 2018 18:12
[2018-03-18] MEDS ORDERED: SODIUM CHLOR 0.9% 1000 ML INJ 1,000 ML IV ONE (18:15)
[2018-03-18] MEDS ORDERED: cefTRIAXone INJ 1,000 MG in SODIUM CHLORIDE 0.9% INJ 100 ML IV ONE (18:15)
[2018-03-18] MEDS ORDERED: ONDANSETRON ODT 4 MG TAB PO ONE (18:15)
[2018-03-18] MEDS ORDERED: MORPHINE SULFATE 4 MG/ML INJ IV PUSH ONE ×2 (18:15→20:30)
[2018-03-18 19:09] LABS: AUTOMATED NEUTROPHIL # 4.9 TH/MM3 (1.8-7.7); BASOPHIL # 0.1 TH/MM3 (0-0.2); EOSINOPHIL # 0.1 TH/MM3 (0-0.4); EOSINOPHIL % 1.8 % (0.0-4.0); HEMATOCRIT 39.8 % (35.0-46.0); HEMOGLOBIN 13.4 GM/DL (11.6-15.3); LYMPH % 22.8 % (9.0-44.0); LYMPHOCYTE # 1.7 TH/MM3 (1.0-4.8); MEAN CELL VOLUME 82.3 FL (80.0-100.0); MEAN CORPUSCULAR HEMOGLOBIN 27.8 PG (27.0-34.0); MEAN CORPUSCULAR HGB CONC 33.8 % (32.0-36.0); MEAN PLATELET VOLUME 8.4 FL (7.0-11.0); MONO % 8.2 % (0.0-8.0); MONOCYTE # 0.6 TH/MM3 (0-0.9); NEUT % 66.2 % (16.0-70.0); PLATELET COUNT 262 TH/MM3 (150-450); RED BLOOD COUNT 4.84 MIL/MM3 (4.00-5.30); RED CELL DISTRIBUTION WIDTH 14.6 % (11.6-17.2); WHITE BLOOD COUNT 7.4 TH/MM3 (4.0-11.0)
[2018-03-18 19:30] LABS: BICARBONATE 26.4 MEQ/L (21.0-32.0); CALCIUM 9.2 MG/DL (8.5-10.1); CREATININE 0.86 MG/DL (0.50-1.00)
[2018-03-18] MEDS ORDERED: POTASSIUM CHLORIDE 20 MEQ CONTROLLED RELEASE TAB PO ONE (20:30)
--- NOTE | 2018-03-18 21:07 | RADRPT ---
EXAM DATE: 03/18/2018 8:33 PM EDT AGE/SEX: 37 years / Female INDICATIONS: Bilateral flank pain. CLINICAL DATA: This is the patient's sequela encounter. Patient reports that signs and symptoms have been present for 1 day and indicates a pain score of 9/10. MEDICAL/SURGICAL HISTORY: Anemia. Headache. Migraine. Chest pain. 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 Renal failure. Kidney stones. Recurring shingles. Lithotripsy. Dilation and curettage. Cystoscopy. COMPARISON: [facility] [place], US KIDNEY/RENAL/BLADDER, 01/23/2018. . Clinical diagnosis of medullary sponge ki dney MEASUREMENTS: Right Kidney:__12.8 x 4.8 x 6.1 cm cm Left Kidney:__13.2 x 5.6 x 5.4 cm cm FINDINGS: Right Kidney: Echogenic renal papilla without hydronephrosis. Left Kidney: Echogenic renal papilla without hydronephrosis. Bladder: Within normal limits given the degree of distension. CONCLUSION: 1. Medullary sponge kidney by history. 2. Findings suggestive of medullary calcinosis without hydronephrosis or obstructing stone. Electronically signed by: Devan Solomon MD 03/18/2018 9:06 PM EDT
[2018-03-18] MEDS ORDERED: TYLE325T PO (21:56)
[2018-03-18] MEDS ORDERED: CEPH-460 PO (21:56)
[2018-03-18 22:11] VITALS: BP 138/82
== END 2018-03-18 22:13 | disposition home or self-care (01) ==
LOC: NEPD 16:48
DX: N12 Tubulo-interstitial nephritis, not specified as acute or chronic (principal); F32.9 Major depressive disorder, single episode, unspecified
CPT/HCPCS: 76775; 80048; 81001; 83690; 84702; 84703; 85025; 87086; 96365; 96375; 96376; 99284; J0696; J2270; J7030

== ENCOUNTER 2018-03-27 09:09 | Emergency (ER) | payer MEDICAID ==
[~2018-03-27] VITALS: Ht 175.3 cm; Wt 68.0 kg
[~2018-03-27 09:09] MED LIST changes: -BACT800T5 PO; +CEPH-460 PO; -CIPR-9 PO; -DOXY100C PO; -HYDR-3516 PO; -LAMO25TA PO; -PERC5TAB12 PO; -PROM25TA10 PO; +TYLE325T PO
[2018-03-27 09:14] VITALS: BP 152/71; PULSE 85; RESP 16; TEMP 98; O2SAT 100
[2018-03-27] MEDS ORDERED: SODIUM CHLOR 0.9% 1000 ML INJ 1,000 ML IV ONE (09:23)
[2018-03-27] MEDS ORDERED: ONDANSETRON ODT 4 MG TAB PO ONE (09:30)
--- NOTE | 2018-03-27 09:32 | PD ---
HPI Chief Complaint: Related Problem Time Seen by Provider: 09:23 Travel History International Travel<30 days: No Contact w/Intl Traveler<30days: No Traveled to known affect area: No History of Present Illness HPI Complains of vaginal bleeding onset 1 day, more specifically 2 hours ago, when she started having some light vaginal spotting, she states she feels nauseous but no abdominal cramping or pain currently. Per LMP she guesses it was around the end of January which according to our best estimates here with an maker approximately 6 weeks . Up until this point the patient has been in her normal state of health. States allergy to NSAIDs and vancomycin Past medical history significant for migraine, D&C, nephrocalcinosis with medullary sponge kidney, kidney stones, status post ureteral stents and lithotripsy, gestational diabetes, bipolar, anemia. PFSH Past Medical History Hx Anticoagulant Therapy: No Anemia: Yes Anxiety: Yes Depression: Yes Cancer: No Cardiovascular Problems: No Chemotherapy: No Chest Pain: Yes Cerebrovascular Accident: No Cystic Fibrosis: No Diabetes: No Diminished Hearing: No Endocrine: Yes (gestational diabities) Gastrointestinal Disorders: Yes Genitourinary: Yes (polynephrocalcinosu, UTI, MEDULARY SPONGE, DISTAL RENAL TUBULAR ACIDOSIS) Headaches: Yes Hepatitis: No Hiatal Hernia: No Hypertension: No Immune Disorder: No Implanted Vascular Access Dvce: No Kidney Stones: Yes Musculoskeletal: No Neurologic: No Psychiatric: No Reproductive: No Respiratory: No Immunizations Current: Yes Migraines: Yes Renal Failure: Yes Shingles: Yes Thyroid Disease: No ?: : 6 Para: 4 Miscarriage: 2 : 0 Dilation and Curettage (D&C): Yes (X 1) Past Surgical History Abdominal Surgery: No AICD: No Body Medical Devices: NONE Cardiac Surgery: No Ear Surgery: No Eye Surgery: No Genitourinary Surgery: Yes (CYSTO-STENTS, LITHOTRIPSY, CYSTOSCOPY) Gynecologic Surgery: No Hysterectomy: No Joint Replacement: No Oral Surgery: No Pacemaker: No Thoracic Surgery: No Other Surgery: Yes (RENAL STENTS (HAVE BEEN REMOVED)) Social History Alcohol Use: No Tobacco Use: No (quit 2012) Substance Use: No Allergies-Medications (Allergen,Severity, Reaction): Coded Allergies: vancomycin (Verified Allergy, Severe, RASH, 03/18/18) NSAIDS (Non-Steroidal Anti-Inflamma (Verified Allergy, Intermediate, ) diclofenac (Verified Adverse Reaction, Severe, RENAL PRECAUTIONS, 03/18/18) etodolac (Verified Adverse Reaction, Severe, RENAL PRECAUTIONS, 03/18/18) flurbiprofen (Verified Adverse Reaction, Severe, RENAL PRECAUTIONS, ) ibuprofen (Verified Adverse Reaction, Severe, RENAL PRECAUTIONS, 03/18/18) indomethacin (Verified Adverse Reaction, Severe, RENAL PRECAUTIONS, ) ketoprofen (Verified Adverse Reaction, Severe, RENAL PRECAUTIONS, 03/18/18) ketorolac (Verified Adverse Reaction, Severe, RENAL PRECAUTIONS, 03/18/18) naproxen (Verified Adverse Reaction, Severe, RENAL PRECAUTIONS, 03/18/18) oxaprozin (Verified Adverse Reaction, Severe, RENAL PRECAUTIONS, 03/18/18) Reported Meds & Prescriptions Reported Meds & Active Scripts Active Tylenol (Acetaminophen) 325 Mg Tab 650 Mg PO Q6H PRN Keflex (Cephalexin) 500 Mg Cap 500 Mg PO Q12H 7 Days Zofran Odt (Ondansetron Odt) 8 Mg Tab 8 Mg SL Q8H PRN [place] (Hydrocodone-Acetaminophen) 5 Mg-325 Mg Tab 1 Tab PO Q6H PRN 10 Days Reported Zoloft (Sertraline HCl) 50 Mg Tab 50 Mg PO DAILY Ativan (Lorazepam) 0.5 Mg Tab 0.5 Mg PO HS PRN Review of Systems General / Constitutional: No: Fever Eyes: No: Visual changes HENT: No: Headaches Cardiovascular: No: Chest Pain or Discomfort Respiratory: No: Shortness of Breath Gastrointestinal: No: Abdominal Pain Genitourinary: Positive: Vaginal Bleeding Musculoskeletal: No: Pain Skin: No Rash Neurologic: No: Weakness Psychiatric: No: Depression Endocrine: No: Polydipsia Hematologic/Lymphatic: No: Easy Bruising Physical Exam Narrative GENERAL: SKIN: Warm and dry. HEAD: Atraumatic. Normocephalic. EYES: Pupils equal and round. No scleral icterus. No injection or drainage. ENT: No nasal bleeding or discharge. Mucous membranes pink and moist. NECK: Trachea midline. No JVD. CARDIOVASCULAR: Regular rate and rhythm. RESPIRATORY: No accessory muscle use. Clear to auscultation. Breath sounds equal bilaterally. GASTROINTESTINAL: Abdomen soft, non-tender, nondistended. MUSCULOSKELETAL: Extremities without clubbing, cyanosis, or edema. No obvious deformities. NEUROLOGICAL: Awake and alert. No obvious cranial nerve deficits. Motor grossly within normal limits. Five out of 5 muscle strength in the arms and legs. Normal speech. PSYCHIATRIC: Appropriate mood and affect; insight and judgment normal. Data Data Last Documented VS Vital Signs Date Time Temp Pulse Resp B/P (MAP) Pulse Ox O2 Delivery O2 Flow Rate FiO2 03/27/18 09:14 98.0 85 16 152/71 (98) 100 Orders Orders Beta Hcg (Quant/Titer) (03/27/18 09:23) Complete Blood Count With Diff (03/27/18:23) Comprehensive Metabolic Panel (03/27/18:23) Type And Screen (03/27/18:23) Urinalysis - C+S If Indicated (03/27/18:23) Iv Access Insert/Monitor (03/27/18:23) Ecg Monitoring (03/27/18 09:23) Sodium Chlor 0.9% 1000 Ml Inj (Ns 1000 M (03/27/18 09:23) Ondansetron Odt (Zofran Odt) (03/27/18 09:30) Us Pelvis (Ques Pr/Ect)W Trans (03/27/18 ) Labs Laboratory Tests Test 03/27/18 09:40 03/27/18 11:00 White Blood Count 5.5 TH/MM3 Red Blood Count 4.57 MIL/MM3 Hemoglobin 12.7 GM/DL Hematocrit 38.4 % Mean Corpuscular Volume 84.0 FL Mean Corpuscular Hemoglobin 27.7 PG Mean Corpuscular Hemoglobin Concent 33.0 % Red Cell Distribution Width 14.7 % Platelet Count 199 TH/MM3 Mean Platelet Volume 8.4 FL Neutrophils (%) (Auto) 69.1 % Lymphocytes (%) (Auto) 20.4 % Monocytes (%) (Auto) 7.2 % Eosinophils (%) (Auto) 2.2 % Basophils (%) (Auto) 1.1 % Neutrophils # (Auto) 3.8 TH/MM3 Lymphocytes # (Auto) 1.1 TH/MM3 Monocytes # (Auto) 0.4 TH/MM3 Eosinophils # (Auto) 0.1 TH/MM3 Basophils # (Auto) 0.1 TH/MM3 CBC Comment DIFF FINAL Differential Comment Blood Urea Nitrogen 9 MG/DL Creatinine 0.76 MG/DL Random Glucose 116 MG/DL Total Protein 7.9 GM/DL Albumin 4.0 GM/DL Calcium Level 8.8 MG/DL Alkaline Phosphatase 54 U/L Aspartate Amino Transf (AST/SGOT) 13 U/L Alanine Aminotransferase (ALT/SGPT) 16 U/L Total Bilirubin 0.3 MG/DL Sodium Level 140 MEQ/L Potassium Level 4.0 MEQ/L Chloride Level 108 MEQ/L Carbon Dioxide Level 21.6 MEQ/L Anion Gap 10 MEQ/L Estimat Glomerular Filtration Rate 87 ML/MIN Human Chorionic Gonadotropin, Quant 100 MIU/ML Urine Color YELLOW Urine Turbidity CLEAR Urine pH 6.5 Urine Specific [place] 1.013 Urine Protein NEG mg/dL Urine Glucose (UA) NEG mg/dL Urine Ketones NEG mg/dL Urine Occult Blood LARGE Urine Nitrite NEG Urine Bilirubin NEG Urine Urobilinogen LESS THAN 2.0 MG/DL Urine Leukocyte Esterase SMALL Urine RBC 89 /hpf Urine WBC 7 /hpf Urine Squamous Epithelial Cells 2 /hpf Microscopic Urinalysis Comment CULT NOT INDICATED MDM Medical Decision Making Medical Screen Exam Complete: Yes Emergency Medical Condition: Yes Medical Record Reviewed: Yes Differential Diagnosis Ectopic versus threatened AB versus inevitable AB versus incomplete AB versus missed AB Narrative Course CBC shows no leukocytosis, no anemia, normal platelet count, no left shift Quantitative hCG is only 100 Electrolytes are all within normal limits, normal kidney liver and pancreatic functions UA is consistent with a contaminated sample from a vaginal spotting. Ultrasound read by radiologist as intrauterine not visualized, nonspecific thickening of the endometrial stripe with slight fluid within the cul-de-sac and endometrial cavity, no adnexal masses noted. Currently with a quantitative hCG of 100 and no evidence of any IUP, most likely this is a inevitable AB, since the patient has not had. Since the end of January. This is most consistent with a miscarriage, patient was made aware of findings and she is referred to [facility] for further follow-up and care Diagnosis Primary Impression: Threatened AB Referrals: Isreal Mccarty MD Patient Instructions: General Instructions, Miscarriage (ED) Scripts Tramadol (Ultram) 50 Mg Tab 50 MG PO Q8H Y for PAIN for 3 Days, #9 TAB 0 Refills Prov: Luis Antonio Monroe MD 03/27/18 Disposition: 01 DISCHARGE HOME Condition: Stable Luis Antonio Monroe MD Mar 27, 2018 09:32
[2018-03-27 10:01] LABS: AUTOMATED NEUTROPHIL # 3.8 TH/MM3 (1.8-7.7); BASOPHIL # 0.1 TH/MM3 (0-0.2); BASOPHIL % 1.1 % (0.0-2.0); EOSINOPHIL # 0.1 TH/MM3 (0-0.4); EOSINOPHIL % 2.2 % (0.0-4.0); HEMATOCRIT 38.4 % (35.0-46.0); HEMOGLOBIN 12.7 GM/DL (11.6-15.3); LYMPH % 20.4 % (9.0-44.0); LYMPHOCYTE # 1.1 TH/MM3 (1.0-4.8); MEAN CORPUSCULAR HEMOGLOBIN 27.7 PG (27.0-34.0); MEAN PLATELET VOLUME 8.4 FL (7.0-11.0); MONO % 7.2 % (0.0-8.0); MONOCYTE # 0.4 TH/MM3 (0-0.9); NEUT % 69.1 % (16.0-70.0); PLATELET COUNT 199 TH/MM3 (150-450); RED BLOOD COUNT 4.57 MIL/MM3 (4.00-5.30); RED CELL DISTRIBUTION WIDTH 14.7 % (11.6-17.2); WHITE BLOOD COUNT 5.5 TH/MM3 (4.0-11.0)
[2018-03-27 10:32] LABS: AST (GOT) 13 U/L (15-37); BICARBONATE 21.6 MEQ/L (21.0-32.0); BLOOD UREA NITROGEN 9 MG/DL (7-18); CALCIUM 8.8 MG/DL (8.5-10.1); CHLORIDE 108 MEQ/L (98-107); CREATININE 0.76 MG/DL (0.50-1.00); GLOMERULAR FILTRATION RATE 87 ML/MIN (>89); GLUCOSE,RANDOM 116 MG/DL (74-106); SODIUM (NA) 140 MEQ/L (136-145)
[2018-03-27 10:33] LABS: ALT (GPT) 16 U/L (10-53)
[2018-03-27 10:37] LABS: ALKALINE PHOSPHATASE 54 U/L (45-117); TOTAL BILIRUBIN ADULT 0.3 MG/DL (0.2-1.0); TOTAL PROTEIN 7.9 GM/DL (6.4-8.2)
[2018-03-27 11:21] LABS: BILIRUBIN, URINE NEG (NEG); BLOOD, URINE LARGE (NEG); GLUCOSE,URINE NEG (NEG); KETONE, URINE NEG (NEG); NITRITE,URINE NEG (NEG); PH, URINE 6.5 (5.0-8.5); SQUAMOUS EPITHELIAL CELL URINE 2 /hpf (0-5); URINE COLOR YELLOW (YELLW/STRAW); URINE LEUKOCYTE ESTERASE SMALL (NEG)
--- NOTE | 2018-03-27 11:59 | RADRPT ---
EXAM DATE: 03/27/2018 11:33 AM EDT AGE/SEX: 37 years / Female INDICATIONS: Bleeding. CLINICAL DATA: This is the patient's initial encounter. Patient reports that signs and symptoms have been present for 1 month and indicates a pain score of 4/10. MEDICAL/SURGICAL HISTORY: . Renal disease. Kidney stones. Depression. Anxiety. Shingles. Urinar y tract infection. Medullary sponge kidney. Distal renal tubular acidosis. . Dilation and curettage. Renal stent placement and removal. Lithotripsy. Cystoscopy. COMPARISON: No prior exams available for comparison. No external comparison. MEASUREMENTS: Uterus:__10.4 x 8.3 x 5.5 cm Endometrial Stripe:__17 mm Right Ovary:__ 2.0 x 2.5 x 2.2 cm Left Ovary:__ . FINDINGS: Uterus: The myometrium has homogeneous echotexture without mass. Intrauterine is not visua lized. There is nonspecific thickening of the endometrial stripe. Right Ovary: Measures Left Ovary: Not visualized Other: There is slight fluid in the cul-de-sac and within endometrial cavity. CONCLUSION: 1. Intrauterine is not visualized. 2. Nonspecific thickening of the endometrial stripe with slight fluid within the cul-de-sac and endo metrial cavity. Electronically signed by: John Hood MD 03/27/2018 11:58 AM EDT
[2018-03-27] MEDS ORDERED: TRAM50 PO (12:22)
[2018-03-27 12:32] VITALS: BP 139/70
== END 2018-03-27 12:39 | disposition home or self-care (01) ==
LOC: NEPD 09:09
DX: O20.0 Threatened abortion (principal); O99.011 Anemia complicating pregnancy, first trimester; O99.341 Other mental disorders complicating pregnancy, first trimester; F41.9 Anxiety disorder, unspecified; F32.9 Major depressive disorder, single episode, unspecified; Z3A.01 Less than 8 weeks gestation of pregnancy; Z87.440 Personal history of urinary (tract) infections; Z87.442 Personal history of urinary calculi
CPT/HCPCS: 76700; 76817; 80053; 81001; 84702; 85025; 86850; 86900; 86901; 96360; 99284; J7030